=== PATIENT | male | born 1965 | race Caucasian/White ===

== ENCOUNTER 2017-05-27 12:30 | Inpatient (IN) | payer MEDICARE ==
[2017-05-27] MEDS ORDERED: ENOXAPARIN SODIUM INJ 40 MG/0.4 ML DISP.SYRIN SUBCUT ONE ×2 (14:00→16:30)
[2017-05-27 14:02] LABS: HEMATOCRIT 49.9 % (37.9-51.0); HEMOGLOBIN 16.7 g/dL (13.5-17.0); HGB HCT DIFFERENCE 0.2; MEAN CORPUSCULAR HEMOGLOBIN 32.8 pg (27.0-33.4); MEAN CORPUSCULAR HGB CONC 33.5 g/dL (32.0-36.0); MEAN CORPUSCULAR VOLUME 98 fl (80-97); RED CELL DISTRIBUTION WIDTH 13.9 % (11.5-14.0); WHITE BLOOD COUNT 25.8 10^3/uL (4.0-10.5)
[2017-05-27 14:05] LABS: PARTIAL THROMBOPLASTIN TIME 29.4 SEC (23.5-35.8); PROTHROMBIN TIME 12.5 SEC (11.4-15.4)
[2017-05-27 14:10] LABS: ALANINE AMINOTRANSFERASE 55 U/L (21-72); ALKALINE PHOSPHATASE 109 U/L (38-126); ANION GAP 15 (5-19); ASPARTATE AMINO TRANSFERASE 39 U/L (17-59); BILIRUBIN,DIRECT 0.5 mg/dL (0.0-0.4); BILIRUBIN,TOTAL 1.9 mg/dL (0.2-1.3); BLOOD UREA NITROGEN 24 mg/dL (7-20); CALCIUM 8.8 mg/dL (8.4-10.2); CARBON DIOXIDE 21 mmol/L (22-30); CHLORIDE 102 mmol/L (98-107); GLUCOSE 142 mg/dL (75-110); POTASSIUM 3.6 mmol/L (3.6-5.0); SODIUM 138.3 mmol/L (137-145); TOTAL PROTEIN 7.1 g/dL (6.3-8.2)
[2017-05-27] MEDS: METRONIDAZOLE 500 MG/NS RTU 100 ML IV SCH ×2 (14:33→21:39)
--- NOTE | 2017-05-27 17:12 | RADIOLOGY REPORT (SQ) ---
EXAM DESCRIPTION: CT ABD/PELVIS WITH IV ORAL COMPLETED DATE/TIME: 05/27/2017 4:56 pm REASON FOR STUDY: ABD PAIN R/O DIVERTICULITIS COMPARISON: 10/26/2014. TECHNIQUE: CT scan of the abdomen and pelvis performed using helical scanning technique with dynamic intravenous contrast injection. No oral contrast. Images reviewed with lung, soft tissue, and bone windows. Reconstructed coronal and sagittal MPR images reviewed. Delayed images for evaluation of the urinary system also acquired. All images stored on PACS. All CT scanners at this facility use dose modulation, iterative reconstruction, and/or weight based d osing when appropriate to reduce radiation dose to as low as reasonably achievable (ALARA). [facility]: Dose Right [facility]: CareDose [facility]: Dose Right [facility]: Teradose 4D [facility]: Home Dialysis Plus CONTRAST TYPE AND DOSE: contrast/concentration: Isovue 300.00 mg/ml; Total Contrast Delivered: 84.0 ml; Total Saline Delivered: 70.0 ml RENAL FUNCTION: BUN 24 creatinine 1.7. RADIATION DOSE: Up-to-date CT equipment and radiation dose reduction techniques were employed. CTDIv ol: 16.3 - 18.6 mGy. DLP: 2014 mGy-cm.. LIMITATIONS: None. FINDINGS: LOWER CHEST: No significant findings. No nodules or infiltrates. LIVER: Normal size. Diffuse fatty infiltration. No masses. No dilated ducts. SPLEEN: Normal size. No focal lesions. PANCREAS: No masses. No significant calcifications. Inflammatory changes involving the pancreas and peripancreatic tissues. No abnormal fluid collections. Pancreatic duct not dilated. GALLBLADDER: No identified stones by CT criteria. No inflammatory changes to suggest cholecystitis. ADRENAL GLANDS: No significant masses or asymmetry. RIGHT KIDNEY AND URETER: No solid masses. No significant calcifications. No hydronephrosis or hyd roureter. LEFT KIDNEY AND URETER: No solid masses. No significant calcifications. No hydronephrosis or hydr oureter. AORTA AND VESSELS: No aneurysm. No dissection. Renal arteries, SMA, celiac without stenosis. RETROPERITONEUM: No retroperitoneal adenopathy, hemorrhage or masses. BOWEL AND PERITONEAL CAVITY: No masses or inflammatory changes. No free fluid or peritoneal masses. APPENDIX: Surgically absent. PELVIS: No mass. No free fluid. Normal bladder. ABDOMINAL WALL: No masses. No hernias. BONES: No significant or acute findings. OTHER: No other significant finding. IMPRESSION: 1. ACUTE PANCREATITIS. NO ABNORMAL FLUID COLLECTIONS. 2. DIFFUSE FATTY INFILTRATION OF THE LIVER. 3. NO OTHER SIGNIFICANT OR ACUTE FINDING IN THE ABDOMEN OR PELVIS ON CT SCAN WITH IV CONTRAST. TECHNICAL DOCUMENTATION: JOB ID: [id number] Quality ID # [id number]: Final reports with documentation of one or more dose reduction techniques (e.g., Au tomated exposure control, adjustment of the mA and/or kV according to patient size, use of iterative reconstruction technique) 2010 [employer]- All Rights Reserved
[2017-05-27] MEDS ORDERED: CIPROFLOXACIN 400 MG/D5W RTU 400 MG/200 ML RTUPB IV SCH (18:00)
[2017-05-27] MEDS ORDERED: DEXTROSE 40% GEL 15 GM TUBE PO PRN ×2 (19:04)
[2017-05-27] MEDS ORDERED: (PENDING PHARMACY ID) (Albuterol Sulfate [Proair Respiclick] 2 PUFF) IH PRN (19:04)
[2017-05-27] MEDS ORDERED: DEXTROSE 50%-WATER 25 GM/50 ML DISP.SYRIN IV PRN ×2 (19:04)
[2017-05-27] MEDS ORDERED: GLUCAGON,HUMAN RECOMB 1 MG INJ SUBCUT PRN (19:04)
[2017-05-27] MEDS ORDERED: HYDRALAZINE HCL INJ/PF 20 MG/1 ML SDV IV PRN (19:14)
[2017-05-27] MEDS ORDERED: CEFEPIME 1 GM/D5W RTU 50 ML IV SCH (19:15)
[2017-05-27 19:30] LABS: AMYLASE 921 U/L (30-110)
[2017-05-27 19:38] LABS: ALCOHOL < 10 mg/dL (NONE DETECTED); LIPASE 3878.4 U/L (23-300)
--- NOTE | 2017-05-27 19:43 | PDOC H&P ---
History of Present Illness Admission Date/PCP: 05/27/17 12:30 ROXIEZHOU BUSTAMANTECrystal Patient complains of: Worsening abdominal pain History of Present Illness: ESTRELLA GAONA is a 52 year old male who presented to the office earlier today with worsening abdominal pain. There is associated nausea and vomiting. Patient reported chills and possible fever. Patient reported associate decrease appetite and p.o intake. He described abdominal pain as dull and crampy in character. His laboratory evaluation revealed significant leukocytosis with total WBC of 24,000. tachycardia and lower than usual blood pressure in the office. In view of these findings he was advised hospitalization for further evaluation and management. Past Medical History Cardiac Medical History: Reports: Hypertension Pulmonary Medical History: Reports: Chronic Obstructive Pulmonary Disease (COPD) Psychiatric Medical History: Reports: Depression Past Surgical History Past Surgical History: Reports: Appendectomy, Tonsillectomy Social History Smoking Status: Current Every Day Smoker Cigarettes Packs Per Day: 1 Last Time Smoked: [id number] Frequency of Alcohol Use: None Hx Recreational Drug Use: No Drugs: None Hx Prescription Drug Abuse: No Family History Family History: Reviewed & Not Pertinent Parental Family History Reviewed: Yes Children Family History Reviewed: Yes Sibling(s) Family History Reviewed.: Yes Medication/Allergy Home Medications: Albuterol Sulfate [Proair Respiclick] 2 puff IH Q6HP PRN 05/27/17 Fluticasone Propionate [Flonase Nasal [place] 50 Mcg/[place] 16 gm] 1 spray NAREB DAILY 05/27/17 Ipratropium/Albuterol Sulfate [Duoneb 3 ml Ampul] 3 ml NEB RTQ6HP PRN 05/27/17 Losartan Potassium [Cozaar 100 mg Tablet] 100 mg PO DAILY 05/27/17 Multivit-Min/FA/Lycopen/Lutein [Centrum Silver Men Tablet] 1 tab PO DAILY Sertraline HCl [Zoloft] 100 mg PO DAILY 05/27/17 Trazodone HCl [Desyrel] 300 mg PO QHS 05/27/17 Allergies/Adverse Reactions: No Known Allergies Allergy (Unverified 10/15/11 06:29) Review of Systems Constitutional: PRESENT: anorexia, chills, fever(s). ABSENT: as per HPI, fatigue, headache(s), night sweats, weakness, weight gain, weight loss, other Eyes: ABSENT: visual disturbances Ears: ABSENT: hearing changes Nose, Mouth, and Throat: ABSENT: as per HPI, headache(s), mouth pain, sore throat, vertigo, other Cardiovascular: ABSENT: chest pain, dyspnea on exertion, edema, orthropnea, palpitations Respiratory: ABSENT: cough, hemoptysis Gastrointestinal: PRESENT: abdominal pain, nausea, vomiting. ABSENT: as per HPI , bloating, coffee ground emesis, constipation, diarrhea, dysphagia, heartburn, hematemesis, hematochezia, melena, other Genitourinary: ABSENT: dysuria, hematuria Musculoskeletal: ABSENT: joint swelling Integumentary: ABSENT: rash, wounds Neurological: ABSENT: abnormal gait, abnormal speech, confusion, dizziness, focal weakness, syncope Psychiatric: ABSENT: anxiety, depression, homidical ideation, suicidal ideation Endocrine: ABSENT: cold intolerance, heat intolerance, menstrual abnormalities, polydipsia, polyuria Hematologic/Lymphatic: ABSENT: easy bleeding, easy bruising, lymphadenopathy Allergic/Immunologic: ABSENT: as per HPI, seasonal rhinorrhea, other Physical Exam Vital Signs: Temp Pulse Resp BP Pulse Ox 99.8 F 116 H 18 116/85 97 05/27/17 16:30 05/27/17 16:30 05/27/17 16:30 05/27/17 16:30 05/27/17 16:30 Intake & Output 05/26/17 05/27/17 05/28/17 06:59 06:59 06:59 Intake Total 776 Output Total 0 Balance 776 Weight 109.09 kg General appearance: PRESENT: cooperative, mild distress, obese Head exam: PRESENT: atraumatic, normocephalic Eye exam: PRESENT: conjunctiva pink, EOMI, PERRLA. ABSENT: scleral icterus Ear exam: PRESENT: normal external ear exam Mouth exam: PRESENT: moist, tongue midline Teeth exam: ABSENT: dental caries, dental tenderness, edentulous, poor dentation , other Throat exam: ABSENT: post pharyngeal erythema, tonsillar erythema, tonsillar exudate, tonsillogmegaly, other Neck exam: PRESENT: full ROM. ABSENT: carotid bruit, JVD, lymphadenopathy, thyromegaly Respiratory exam: PRESENT: clear to auscultation carroll Cardiovascular exam: PRESENT: tachycardia Pulses: PRESENT: normal dorsalis pedis pul, +2 pedal pulses bilateral Vascular exam: PRESENT: normal capillary refill GI/Abdominal exam: PRESENT: distended, rebound, tenderness - diffusely but some increase intensiuty in RLQ and LLQ regions. ABSENT: ascites, guarding, mass, Gusman's sign, organolmegaly Rectal exam: PRESENT: deferred Extremities exam: ABSENT: pedal edema Musculoskeletal exam: PRESENT: ambulatory, deformity - related to multiple joints invoilvement with arthritis Neurological exam: PRESENT: alert, awake, oriented to person, oriented to place , oriented to time, oriented to situation, CN II-XII grossly intact. ABSENT: motor sensory deficit Psychiatric exam: PRESENT: appropriate affect, normal mood. ABSENT: homicidal ideation, suicidal ideation Skin exam: PRESENT: dry, intact, warm. ABSENT: cyanosis, rash Results Laboratory Results: 05/27/17 13:38 05/27/17 13:38 05/27/17 05/27/17 05/27/17 13:38 13:38 13:38 WBC 25.8 H RBC 5.10 Hgb 16.7 Hct 49.9 MCV 98 H MCH 32.8 MCHC 33.5 RDW 13.9 Plt Count 223 Sodium 138.3 Potassium 3.6 Chloride 102 Carbon Dioxide 21 L Anion Gap 15 BUN 24 H Creatinine Cancelled 1.70 H Est GFR ( Amer) Cancelled 51 L Est GFR (Non-Af Amer) Cancelled 42 L Glucose 142 H Calcium 8.8 Total Bilirubin 1.9 H AST 39 ALT 55 Alkaline Phosphatase 109 Total Protein 7.1 Albumin 4.0 Impressions: Abdomen/Pelvis CT 05/27/17 00:00 IMPRESSION: 1. ACUTE PANCREATITIS. NO ABNORMAL FLUID COLLECTIONS. 2. DIFFUSE FATTY INFILTRATION OF THE LIVER. 3. NO OTHER SIGNIFICANT OR ACUTE FINDING IN THE ABDOMEN OR PELVIS ON CT SCAN WITH IV CONTRAST. Assessment & Plan - Diagnosis (1) Acute pancreatitis Qualifiers: Pancreatitis type: unspecified pancreatitis type Acute pancreatitis complication: unspecified Qualified Code(s): K85.90 - Acute pancreatitis without necrosis or infection, unspecified Is this a current diagnosis for this admission?: YesPlan: See admitting attending physician orders. (2) Probable sepsis Is this a current diagnosis for this admission?: YesPlan: See admitting attending physician orders (3) HTN (hypertension) Qualifiers: Hypertension type: essential hypertension Qualified Code(s): I10 - Essential (primary) hypertension Is this a current diagnosis for this admission?: YesPlan: See admitting attending physician orders (4) COPD (chronic obstructive pulmonary disease) Qualifiers: COPD type: unspecified COPD Qualified Code(s): J44.9 - Chronic obstructive pulmonary disease, unspecified Is this a current diagnosis for this admission?: YesPlan: See admitting attending physician orders (5) Tobacco dependence Is this a current diagnosis for this admission?: YesPlan: See admitting attending physician orders (6) Mixed anxiety and depressive disorder Is this a current diagnosis for this admission?: Yes (7) Persistent insomnia Plan: See admitting attending physician orders - Time Time Spent: Greater than 70 Minutes Medications reviewed and adjusted accordingly: Yes Anticipated discharge: Home Within: Other - Inpatient Certification Based on my medical assessment, after consideration of the patient's comorbidities, presenting symptoms, or acuity I expect that the services needed warrant INPATIENT care.: Yes I certify that my determination is in accordance with my understanding of Medicare's requirements for reasonable and necessary INPATIENT services [42 CFR 412.3e].: Yes Medical Necessity: Need Close Monitoring Due to Risk of Patient Decompensation, Need For IV Fluids, Need For Continuous Telemetry Monitoring, Need for Nebulizer Therapy and Monitoring of Response, Need for IV Antibiotics, Risk of Complication if Not Cared For in Hospital Post Hospital Care: D/C Claims Vice President Documentation - Plan Summary Plan Summary: See admitting attending physician orders
[2017-05-27] MEDS ORDERED: NICOTINE 21 MG/24 HR PATCH.TD24 TD ONE (20:00)
[2017-05-27] MEDS ORDERED: CEFEPIME HCL 1 GM in DEXTROSE 5%-WATER 50 ML IV ONE (20:00)
[2017-05-27 21:59] LABS: APPEARANCE,URINE CLEAR; BILIRUBIN,URINE NEGATIVE (NEGATIVE); GLUCOSE, URINE NEGATIVE (NEGATIVE); KETONES,URINE NEGATIVE (NEGATIVE); LEUKOCYTE ESTERASE,URINE NEGATIVE (NEGATIVE); NITRITE,URINE NEGATIVE (NEGATIVE); PROTEIN,URINE 30 mg/dL (NEGATIVE); UROBILINOGEN,URINE NEGATIVE mg/dL (<2.0)
[2017-05-27 22:06] LABS: URINE SPECIFIC GRAVITY > 1.060
[2017-05-28] MEDS: IPRATROPIUM/ALBUTEROL 0.5-2.5 MG/3 ML AMPUL NEB PRN ×3 (02:29→19:54)
[2017-05-28] MEDS: CEFEPIME HCL 1 GM in DEXTROSE 5%-WATER 50 ML IV SCH ×2 (05:18→17:21)
[2017-05-28] MEDS: METRONIDAZOLE 500 MG/NS RTU 100 ML IV SCH ×3 (05:18→22:24)
[2017-05-28 05:45] LABS: HGB HCT DIFFERENCE 0.5; MEAN CORPUSCULAR HEMOGLOBIN 32.6 pg (27.0-33.4); MEAN CORPUSCULAR HGB CONC 33.6 g/dL (32.0-36.0); MEAN CORPUSCULAR VOLUME 97 fl (80-97); RED BLOOD COUNT 4.43 10^6/uL (4.35-5.55); RED CELL DISTRIBUTION WIDTH 13.3 % (11.5-14.0); WHITE BLOOD COUNT 18.6 10^3/uL (4.0-10.5)
[2017-05-28 05:46] LABS: HEMOGLOBIN 14.5 g/dL (13.5-17.0)
[2017-05-28 06:00] LABS: ALANINE AMINOTRANSFERASE 48 U/L (21-72); ALKALINE PHOSPHATASE 75 U/L (38-126); AMYLASE 446 U/L (30-110); ANION GAP 10 (5-19); ASPARTATE AMINO TRANSFERASE 37 U/L (17-59); BILIRUBIN,DIRECT 0.6 mg/dL (0.0-0.4); BILIRUBIN,TOTAL 1.3 mg/dL (0.2-1.3); BLOOD UREA NITROGEN 19 mg/dL (7-20); CALCIUM 7.7 mg/dL (8.4-10.2); CARBON DIOXIDE 25 mmol/L (22-30); CHLORIDE 103 mmol/L (98-107); CHOLESTEROL 110.75 mg/dL (0-200); CREATININE RESULT 1.05 mg/dL (0.52-1.25); Direct HDL 27 mg/dL (>40); GLUCOSE 99 mg/dL (75-110); LIPASE 1428.1 U/L (23-300); SODIUM 138.2 mmol/L (137-145); TOTAL PROTEIN 5.7 g/dL (6.3-8.2); TRIGLYCERIDES 412 mg/dL (<150)
[2017-05-28 06:08] LABS: POTASSIUM 3.5 mmol/L (3.6-5.0)
[2017-05-28 06:45] LABS: DIRECT LDL < 30 mg/dL (<100)
[2017-05-28] MEDS: LANSOPRAZOLE 30 MG TAB.RAP.DR PO SCH (08:52)
[2017-05-28] MEDS: NICOTINE 21 MG/24 HR PATCH.TD24 TD SCH (08:53)
[2017-05-28] MEDS: ENOXAPARIN SODIUM INJ 40 MG/0.4 ML DISP.SYRIN SUBCUT SCH (08:53)
[2017-05-28] MEDS: FLUTICASONE NASAL SPRAY 50 MCG/SPRY 120 SPRAY/16 GM NAREB SCH (08:55)
[2017-05-28] MEDS: NORMAL SALINE 1000 ML 1,000 ML IV PRN (08:56)
--- NOTE | 2017-05-28 19:49 | PDOC PROGRESS REPORT ---
Subjective Progress Note for:: 05/28/17 Subjective:: Patient reported some improvement in his abdominal pain. No nausea or vomiting. Some amount of diarrhea. No fever or chills. No chest pain or difficulty with breathing. Physical Exam Vital Signs: Temp Pulse Resp BP Pulse Ox 98.8 F 109 H 19 140/92 H 98 05/28/17 15:24 05/28/17 15:24 05/28/17 15:24 05/28/17 15:24 05/28/17 15:24 Intake & Output 05/27/17 05/28/17 05/29/17 06:59 06:59 06:59 Intake Total 2576 0 Output Total 0 Balance 2576 0 Weight 109.09 kg General appearance: PRESENT: no acute distress, cooperative, obese Head exam: PRESENT: atraumatic, normocephalic Eye exam: PRESENT: conjunctiva pink, EOMI, PERRLA. ABSENT: scleral icterus Respiratory exam: PRESENT: clear to auscultation carroll Cardiovascular exam: PRESENT: RRR. ABSENT: diastolic murmur, rubs, systolic murmur GI/Abdominal exam: PRESENT: normal bowel sounds, tenderness - comparative improved over lower quadrants.. ABSENT: ascites, guarding, rebound Extremities exam: ABSENT: pedal edema Musculoskeletal exam: PRESENT: normal inspection Neurological exam: PRESENT: alert, awake, oriented to person, oriented to place , oriented to time, oriented to situation, CN II-XII grossly intact. ABSENT: motor sensory deficit Psychiatric exam: PRESENT: appropriate affect, normal mood. ABSENT: homicidal ideation, suicidal ideation Skin exam: PRESENT: dry, intact, warm. ABSENT: cyanosis, rash Results Laboratory Results: 05/28/17 04:43 05/28/17 04:43 05/27/17 05/28/17 05/28/17 19:30 04:43 04:43 WBC 18.6 H RBC 4.43 Hgb 14.5 D Hct 43.0 MCV 97 MCH 32.6 MCHC 33.6 RDW 13.3 Plt Count 146 L Sodium 138.2 Potassium 3.5 L Chloride 103 Carbon Dioxide 25 Anion Gap 10 BUN 19 Creatinine 1.05 Est GFR ( Amer) > 60 Est GFR (Non-Af Amer) > 60 Glucose 99 Calcium 7.7 L Total Bilirubin 1.3 AST 37 ALT 48 Alkaline Phosphatase 75 Total Protein 5.7 L Albumin 3.0 L Triglycerides 412 H Cholesterol 110.75 LDL Cholesterol Direct < 30 VLDL Cholesterol UNABLE TO CALCULATE HDL Cholesterol 27 L Amylase 446 H Lipase 1428.1 H Urine Color YELLOW Urine Appearance CLEAR Urine pH 6.0 Ur Specific [place] > 1.060 Urine Protein 30 H Urine Glucose (UA) NEGATIVE Urine Ketones NEGATIVE Urine Blood SMALL H Urine Nitrite NEGATIVE Ur Leukocyte Esterase NEGATIVE Urine WBC (Auto) 3 Urine RBC (Auto) 1 Impressions: Abdomen/Pelvis CT 05/27/17 00:00 IMPRESSION: 1. ACUTE PANCREATITIS. NO ABNORMAL FLUID COLLECTIONS. 2. DIFFUSE FATTY INFILTRATION OF THE LIVER. 3. NO OTHER SIGNIFICANT OR ACUTE FINDING IN THE ABDOMEN OR PELVIS ON CT SCAN WITH IV CONTRAST. Assessment & Plan - Diagnosis (1) Acute pancreatitis Qualifiers: Pancreatitis type: unspecified pancreatitis type Acute pancreatitis complication: unspecified Qualified Code(s): K85.90 - Acute pancreatitis without necrosis or infection, unspecified Is this a current diagnosis for this admission?: YesPlan: There is down hollins trend of his serum Lipase and Amylase levels. (2) Probable sepsis Is this a current diagnosis for this admission?: YesPlan: See attending physician orders. He will continue on IV Cefepime and Metronidazole coverage. There is downward trend in his leukocytosis (3) HTN (hypertension) Qualifiers: Hypertension type: essential hypertension Qualified Code(s): I10 - Essential (primary) hypertension Is this a current diagnosis for this admission?: YesPlan: See attending physician orders. (4) COPD (chronic obstructive pulmonary disease) Qualifiers: COPD type: unspecified COPD Qualified Code(s): J44.9 - Chronic obstructive pulmonary disease, unspecified Is this a current diagnosis for this admission?: YesPlan: See attending physician orders. (5) Tobacco dependence Is this a current diagnosis for this admission?: YesPlan: See attending physician orders. (6) Mixed anxiety and depressive disorder Is this a current diagnosis for this admission?: YesPlan: See attending physician orders. (7) Persistent insomnia Is this a current diagnosis for this admission?: YesPlan: See attending physician orders. - Time Time Spent with patient: 25-34 minutes Medications reviewed and adjusted accordingly: Yes Anticipated discharge: Home Within: Other - Inpatient Certification Based on my medical assessment, after consideration of the patient's comorbidities, presenting symptoms, or acuity I expect that the services needed warrant INPATIENT care.: Yes I certify that my determination is in accordance with my understanding of Medicare's requirements for reasonable and necessary INPATIENT services [42 CFR 412.3e].: Yes Medical Necessity: Need Close Monitoring Due to Risk of Patient Decompensation, Need For IV Fluids, Need For Continuous Telemetry Monitoring, Need for IV Antibiotics, Risk of Complication if Not Cared For in Hospital Post Hospital Care: D/C Retail Business Analyst Documentation - Plan 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
[2017-05-28 20:33] LABS: APPEARANCE,URINE SLIGHTLY-CLOUDY; BILIRUBIN,URINE NEGATIVE (NEGATIVE); GLUCOSE, URINE NEGATIVE (NEGATIVE); KETONES,URINE 80 mg/dL (NEGATIVE); LEUKOCYTE ESTERASE,URINE TRACE (NEGATIVE); NITRITE,URINE NEGATIVE (NEGATIVE); PROTEIN,URINE 100 mg/dL (NEGATIVE); URINE SPECIFIC GRAVITY 1.031
[2017-05-29] MEDS: METRONIDAZOLE 500 MG/NS RTU 100 ML IV SCH ×3 (05:10→21:23)
[2017-05-29] MEDS: CEFEPIME HCL 1 GM in DEXTROSE 5%-WATER 50 ML IV SCH ×2 (06:12→17:52)
[2017-05-29 07:06] LABS: LIPASE 346.9 U/L (23-300)
[2017-05-29] MEDS: LANSOPRAZOLE 30 MG TAB.RAP.DR PO SCH (07:43)
[2017-05-29] MEDS: ENOXAPARIN SODIUM INJ 40 MG/0.4 ML DISP.SYRIN SUBCUT SCH (07:43)
[2017-05-29] MEDS: NICOTINE 21 MG/24 HR PATCH.TD24 TD SCH (10:03)
[2017-05-29] MEDS: FLUTICASONE NASAL SPRAY 50 MCG/SPRY 120 SPRAY/16 GM NAREB SCH (10:04)
[2017-05-29] MEDS: IPRATROPIUM/ALBUTEROL 0.5-2.5 MG/3 ML AMPUL NEB PRN ×2 (10:49→21:34)
--- NOTE | 2017-05-29 18:53 | PDOC PROGRESS REPORT ---
Subjective Progress Note for:: 05/29/17 Subjective:: Patient reported continue improvement in abdominal pain. No nausea or vomiting. Persistent issue with diarrhea. No fever or chills. No chest pain or difficulty with breathing. Physical Exam Vital Signs: Temp Pulse Resp BP Pulse Ox 98.6 F 92 19 152/86 H 100 05/29/17 15:28 05/29/17 15:28 05/29/17 15:28 05/29/17 15:28 05/29/17 15:28 Intake & Output 05/28/17 05/29/17 05/30/17 06:59 06:59 06:59 Intake Total 2576 2073 0 Output Total 0 Balance 2576 2073 0 Weight 109.09 kg 108.465 kg Physical Exam: General appearance: PRESENT: no acute distress, cooperative, obese Head exam: PRESENT: atraumatic, normocephalic Eye exam: PRESENT: conjunctiva pink, EOMI, PERRLA. ABSENT: scleral icterus Respiratory exam: PRESENT: clear to auscultation carroll Cardiovascular exam: PRESENT: RRR. ABSENT: diastolic murmur, rubs, systolic murmur GI/Abdominal exam: PRESENT: normal bowel sounds, tenderness - comparative improved over lower quadrants.. ABSENT: ascites, guarding, rebound Extremities exam: ABSENT: pedal edema Musculoskeletal exam: PRESENT: normal inspection Neurological exam: PRESENT: alert, awake, oriented to person, oriented to place , oriented to time, oriented to situation, CN II-XII grossly intact. ABSENT: motor sensory deficit Psychiatric exam: PRESENT: appropriate affect, normal mood. ABSENT: homicidal ideation, suicidal ideation Skin exam: PRESENT: dry, intact, warm. ABSENT: cyanosis, rash Results Laboratory Results: 05/28/17 04:43 05/28/17 04:43 05/28/17 05/29/17 20:15 06:33 Amylase 82 Lipase 346.9 H Urine Color PRINCE Urine Appearance SLIGHTLY-CLOUDY Urine pH 6.0 Ur Specific [place] 1.031 Urine Protein 100 H Urine Glucose (UA) NEGATIVE Urine Ketones 80 H Urine Blood NEGATIVE Urine Nitrite NEGATIVE Ur Leukocyte Esterase TRACE H Urine WBC (Auto) 1 Urine RBC (Auto) 1 Impressions: Abdomen/Pelvis CT 05/27/17 00:00 IMPRESSION: 1. ACUTE PANCREATITIS. NO ABNORMAL FLUID COLLECTIONS. 2. DIFFUSE FATTY INFILTRATION OF THE LIVER. 3. NO OTHER SIGNIFICANT OR ACUTE FINDING IN THE ABDOMEN OR PELVIS ON CT SCAN WITH IV CONTRAST. Assessment & Plan - Diagnosis (1) Acute pancreatitis Qualifiers: Pancreatitis type: unspecified pancreatitis type Acute pancreatitis complication: unspecified Qualified Code(s): K85.90 - Acute pancreatitis without necrosis or infection, unspecified Is this a current diagnosis for this admission?: YesPlan: There is down hollins trend of his serum Lipase level and normal Amylase level. (2) Probable sepsis Is this a current diagnosis for this admission?: YesPlan: See attending physician orders. Continue on IV Cefepime and Metronidazole coverage. (3) HTN (hypertension) Qualifiers: Hypertension type: essential hypertension Qualified Code(s): I10 - Essential (primary) hypertension Is this a current diagnosis for this admission?: YesPlan: See attending physician orders. (4) COPD (chronic obstructive pulmonary disease) Qualifiers: COPD type: unspecified COPD Qualified Code(s): J44.9 - Chronic obstructive pulmonary disease, unspecified Is this a current diagnosis for this admission?: YesPlan: See attending physician orders. (5) Tobacco dependence Is this a current diagnosis for this admission?: YesPlan: See attending physician orders. (6) Mixed anxiety and depressive disorder Is this a current diagnosis for this admission?: YesPlan: See attending physician orders. (7) Persistent insomnia Is this a current diagnosis for this admission?: YesPlan: See attending physician orders. - Time Time Spent with patient: 25-34 minutes Medications reviewed and adjusted accordingly: Yes Anticipated discharge: Home Within: Other - Inpatient Certification Medical Necessity: Need Close Monitoring Due to Risk of Patient Decompensation, Need For IV Fluids, Need For Continuous Telemetry Monitoring, Need for IV Antibiotics, Risk of Complication if Not Cared For in Hospital Post Hospital Care: D/C Clinical Statistical Programmer Documentation - Plan Summary Plan Summary: Continue current management. If Lipase level is within normal range tomorrow, consider starting on clear liquid diet. Continue IV Cefepime and Metronidazole coverage.
[2017-05-29] MEDS: NORMAL SALINE 1000 ML 1,000 ML IV PRN (19:25)
[2017-05-30] MEDS: METRONIDAZOLE 500 MG/NS RTU 100 ML IV SCH ×3 (05:04→22:26)
[2017-05-30 05:42] LABS: ABSOLUTE EOSINOPHILS # (AUTO) 0.3 10^3/uL (0.0-0.6); ABSOLUTE LYMPHOCYTES (AUTO) 0.8 10^3/uL (0.5-4.7); BASOPHILS % (AUTO) 0.1 % (0-2); EOSINOPHILS % (AUTO) 2.4 % (0-6); HEMATOCRIT 36.3 % (37.9-51.0); LYMPHOCYTES % (AUTO) 5.8 % (13-45); MEAN CORPUSCULAR HEMOGLOBIN 32.9 pg (27.0-33.4); MEAN CORPUSCULAR HGB CONC 33.4 g/dL (32.0-36.0); MEAN CORPUSCULAR VOLUME 98 fl (80-97); MONOCYTES % (AUTO) 7.7 % (3-13); RED BLOOD COUNT 3.69 10^6/uL (4.35-5.55); RED CELL DISTRIBUTION WIDTH 13.6 % (11.5-14.0); WHITE BLOOD COUNT 13.2 10^3/uL (4.0-10.5)
[2017-05-30 05:51] LABS: HEMOGLOBIN 12.1 g/dL (13.5-17.0)
[2017-05-30 06:02] LABS: ALANINE AMINOTRANSFERASE 42 U/L (21-72); ALBUMIN 2.8 g/dL (3.5-5.0); ALKALINE PHOSPHATASE 78 U/L (38-126); AMYLASE 60 U/L (30-110); ANION GAP 9 (5-19); ASPARTATE AMINO TRANSFERASE 29 U/L (17-59); BILIRUBIN,DIRECT 0.4 mg/dL (0.0-0.4); BILIRUBIN,TOTAL 0.7 mg/dL (0.2-1.3); BLOOD UREA NITROGEN 14 mg/dL (7-20); CARBON DIOXIDE 25 mmol/L (22-30); CHLORIDE 104 mmol/L (98-107); CREATININE RESULT 0.72 mg/dL (0.52-1.25); GLUCOSE 89 mg/dL (75-110); LIPASE 309.3 U/L (23-300); POTASSIUM 3.8 mmol/L (3.6-5.0); SODIUM 138.2 mmol/L (137-145); TOTAL PROTEIN 5.4 g/dL (6.3-8.2)
[2017-05-30] MEDS: CEFEPIME HCL 1 GM in DEXTROSE 5%-WATER 50 ML IV SCH ×2 (06:16→17:08)
[2017-05-30] MEDS: LANSOPRAZOLE 30 MG TAB.RAP.DR PO SCH (07:37)
[2017-05-30] MEDS: ENOXAPARIN SODIUM INJ 40 MG/0.4 ML DISP.SYRIN SUBCUT SCH (07:38)
[2017-05-30] MEDS: NICOTINE 21 MG/24 HR PATCH.TD24 TD SCH (09:20)
[2017-05-30] MEDS: FLUTICASONE NASAL SPRAY 50 MCG/SPRY 120 SPRAY/16 GM NAREB SCH (09:20)
[2017-05-30] MEDS: NORMAL SALINE 1000 ML 1,000 ML IV PRN ×2 (10:13→17:10)
[2017-05-30] MEDS: IPRATROPIUM/ALBUTEROL 0.5-2.5 MG/3 ML AMPUL NEB PRN ×2 (10:36→18:59)
--- NOTE | 2017-05-30 16:00 | PDOC PROGRESS REPORT ---
Subjective Progress Note for:: 05/30/17 Subjective:: Patient's serum lipase significantly improved. Started on clear liquid diet earlier this morning. No nausea, vomiting or abdominal pain. Persistent issue with diarrhea. No fever or chills. No chest pain or difficulty with breathing. Physical Exam Vital Signs: Temp Pulse Resp BP Pulse Ox 98.2 F 74 18 140/82 H 99 05/30/17 11:52 05/30/17 14:00 05/30/17 11:52 05/30/17 11:52 05/30/17 11:52 Intake & Output 05/29/17 05/30/17 05/31/17 06:59 06:59 06:59 Intake Total 2072 2619 Balance 2072 2619 Weight 108.465 kg 109.429 kg Physical Exam: General appearance: PRESENT: no acute distress, cooperative, obese Head exam: PRESENT: atraumatic, normocephalic Eye exam: PRESENT: conjunctiva pink, EOMI, PERRLA. ABSENT: scleral icterus Respiratory exam: PRESENT: clear to auscultation carroll Cardiovascular exam: PRESENT: RRR. ABSENT: diastolic murmur, rubs, systolic murmur GI/Abdominal exam: PRESENT: normal bowel sounds, significant improvement in lower quadrant tenderness. ABSENT: ascites, guarding, rebound Extremities exam: ABSENT: pedal edema Musculoskeletal exam: PRESENT: normal inspection Neurological exam: PRESENT: alert, awake, oriented to person, oriented to place , oriented to time, oriented to situation, CN II-XII grossly intact. ABSENT: motor sensory deficit Psychiatric exam: PRESENT: appropriate affect, normal mood. ABSENT: homicidal ideation, suicidal ideation Skin exam: PRESENT: dry, intact, warm. ABSENT: cyanosis, rash Results Laboratory Results: 05/30/17 05:12 05/30/17 05:12 05/30/17 05/30/17 05:12 05:12 WBC 13.2 H RBC 3.69 L Hgb 12.1 L D Hct 36.3 L MCV 98 H MCH 32.9 MCHC 33.4 RDW 13.6 Plt Count 146 L Seg Neutrophils % 84.0 H Lymphocytes % 5.8 L Monocytes % 7.7 Eosinophils % 2.4 Basophils % 0.1 Absolute Neutrophils 11.0 H Absolute Lymphocytes 0.8 Absolute Monocytes 1.0 Absolute Eosinophils 0.3 Absolute Basophils 0.0 Sodium 138.2 Potassium 3.8 Chloride 104 Carbon Dioxide 25 Anion Gap 9 BUN 14 Creatinine 0.72 Est GFR ( Amer) > 60 Est GFR (Non-Af Amer) > 60 Glucose 89 Calcium 8.0 L Total Bilirubin 0.7 AST 29 ALT 42 Alkaline Phosphatase 78 Total Protein 5.4 L Albumin 2.8 L Amylase 60 Lipase 309.3 H Impressions: Abdomen/Pelvis CT 05/27/17 00:00 IMPRESSION: 1. ACUTE PANCREATITIS. NO ABNORMAL FLUID COLLECTIONS. 2. DIFFUSE FATTY INFILTRATION OF THE LIVER. 3. NO OTHER SIGNIFICANT OR ACUTE FINDING IN THE ABDOMEN OR PELVIS ON CT SCAN WITH IV CONTRAST. Assessment & Plan - Diagnosis (1) Acute pancreatitis Qualifiers: Pancreatitis type: unspecified pancreatitis type Acute pancreatitis complication: unspecified Qualified Code(s): K85.90 - Acute pancreatitis without necrosis or infection, unspecified Is this a current diagnosis for this admission?: Yes (2) Probable sepsis Is this a current diagnosis for this admission?: Yes (3) HTN (hypertension) Qualifiers: Hypertension type: essential hypertension Qualified Code(s): I10 - Essential (primary) hypertension Is this a current diagnosis for this admission?: Yes (4) COPD (chronic obstructive pulmonary disease) Qualifiers: COPD type: unspecified COPD Qualified Code(s): J44.9 - Chronic obstructive pulmonary disease, unspecified Is this a current diagnosis for this admission?: Yes (5) Tobacco dependence Is this a current diagnosis for this admission?: Yes (6) Mixed anxiety and depressive disorder Is this a current diagnosis for this admission?: Yes (7) Persistent insomnia Is this a current diagnosis for this admission?: Yes - Time Time Spent with patient: 25-34 minutes Medications reviewed and adjusted accordingly: Yes Anticipated discharge: Home Within: Other - Inpatient Certification Based on my medical assessment, after consideration of the patient's comorbidities, presenting symptoms, or acuity I expect that the services needed warrant INPATIENT care.: Yes I certify that my determination is in accordance with my understanding of Medicare's requirements for reasonable and necessary INPATIENT services [42 CFR 412.3e].: Yes Medical Necessity: Need Close Monitoring Due to Risk of Patient Decompensation, Need For IV Fluids, Need For Continuous Telemetry Monitoring, Need for IV Antibiotics, Risk of Complication if Not Cared For in Hospital Post Hospital Care: D/C [employer] Documentation - Plan Summary Plan Summary: Maintain on current medication management. Advance diet consistency if serum lipase continue to demonstrate downward trend.
[2017-05-31] MEDS: METRONIDAZOLE 500 MG/NS RTU 100 ML IV SCH ×3 (05:37→21:43)
[2017-05-31] MEDS: NORMAL SALINE 1000 ML 1,000 ML IV PRN (05:38)
[2017-05-31] MEDS ORDERED: CEFEPIME 1 GM/D5W RTU 1 GM/50 ML RTUPB IV ONE (06:13)
[2017-05-31] MEDS: CEFEPIME HCL 1 GM in DEXTROSE 5%-WATER 50 ML IV SCH ×2 (06:44→18:17)
[2017-05-31] MEDS: IPRATROPIUM/ALBUTEROL 0.5-2.5 MG/3 ML AMPUL NEB PRN ×2 (08:56→20:22)
[2017-05-31 09:56] LABS: ABSOLUTE EOSINOPHILS # (AUTO) 0.4 10^3/uL (0.0-0.6); ABSOLUTE LYMPHOCYTES (AUTO) 0.8 10^3/uL (0.5-4.7); ABSOLUTE NEUT (AUTO) 10.3 10^3/uL (1.7-8.2); BASOPHILS % (AUTO) 0.3 % (0-2); HEMATOCRIT 36.6 % (37.9-51.0); HEMOGLOBIN 12.4 g/dL (13.5-17.0); HGB HCT DIFFERENCE 0.6; LYMPHOCYTES % (AUTO) 6.4 % (13-45); MEAN CORPUSCULAR HEMOGLOBIN 32.7 pg (27.0-33.4); MEAN CORPUSCULAR HGB CONC 33.8 g/dL (32.0-36.0); MEAN CORPUSCULAR VOLUME 97 fl (80-97); MONOCYTES % (AUTO) 8.3 % (3-13); RED BLOOD COUNT 3.78 10^6/uL (4.35-5.55); RED CELL DISTRIBUTION WIDTH 13.2 % (11.5-14.0); WHITE BLOOD COUNT 12.5 10^3/uL (4.0-10.5)
[2017-05-31 10:21] LABS: ANION GAP 9 (5-19); BLOOD UREA NITROGEN 9 mg/dL (7-20); CARBON DIOXIDE 26 mmol/L (22-30); CHLORIDE 101 mmol/L (98-107); CREATININE RESULT 0.67 mg/dL (0.52-1.25); GLUCOSE 122 mg/dL (75-110); POTASSIUM 3.4 mmol/L (3.6-5.0); SODIUM 136.1 mmol/L (137-145)
[2017-05-31] MEDS: LANSOPRAZOLE 30 MG TAB.RAP.DR PO SCH (10:21)
[2017-05-31] MEDS: ENOXAPARIN SODIUM INJ 40 MG/0.4 ML DISP.SYRIN SUBCUT SCH (10:21)
[2017-05-31] MEDS: FLUTICASONE NASAL SPRAY 50 MCG/SPRY 120 SPRAY/16 GM NAREB SCH (10:22)
[2017-05-31] MEDS: NICOTINE 21 MG/24 HR PATCH.TD24 TD SCH (10:22)
--- NOTE | 2017-05-31 15:54 | PDOC PROGRESS REPORT ---
Subjective Progress Note for:: 05/31/17 Subjective:: Patient was admitted because of acute pancreatitis, he was seen by the bedside is alert is oriented is tolerating p.o. fluid is also on IV antibiotic. It is reasonable at this time to discontinue IV fluid therapy since he is able to eat by mouth Physical Exam Vital Signs: Temp Pulse Resp BP Pulse Ox 98.5 F 75 18 138/90 H 99 05/31/17 11:26 05/31/17 14:00 05/31/17 11:26 05/31/17 11:26 05/31/17 11:26 Intake & Output 05/30/17 05/31/17 06/01/17 06:59 06:59 06:59 Intake Total 2620 4068 Balance 2620 4068 Weight 109.429 kg 105.3 kg General appearance: PRESENT: no acute distress Eye exam: PRESENT: PERRLA Respiratory exam: PRESENT: clear to auscultation carroll Cardiovascular exam: PRESENT: +S1, +S2 GI/Abdominal exam: PRESENT: soft Neurological exam: PRESENT: alert, CN II-XII grossly intact Results Laboratory Results: 05/31/17 09:48 05/31/17 09:48 05/31/17 05/31/17 05/31/17 06:15 09:48 09:48 WBC 12.5 H RBC 3.78 L Hgb 12.4 L Hct 36.6 L MCV 97 MCH 32.7 MCHC 33.8 RDW 13.2 Plt Count 172 Seg Neutrophils % 82.0 H Lymphocytes % 6.4 L Monocytes % 8.3 Eosinophils % 3.0 Basophils % 0.3 Absolute Neutrophils 10.3 H Absolute Lymphocytes 0.8 Absolute Monocytes 1.0 Absolute Eosinophils 0.4 Absolute Basophils 0.0 Sodium 136.1 L Potassium 3.4 L Chloride 101 Carbon Dioxide 26 Anion Gap 9 BUN 9 Creatinine 0.67 Est GFR ( Amer) > 60 Est GFR (Non-Af Amer) > 60 Glucose 122 H Calcium 8.0 L Lipase 273.1 Impressions: Abdomen/Pelvis CT 05/27/17 00:00 IMPRESSION: 1. ACUTE PANCREATITIS. NO ABNORMAL FLUID COLLECTIONS. 2. DIFFUSE FATTY INFILTRATION OF THE LIVER. 3. NO OTHER SIGNIFICANT OR ACUTE FINDING IN THE ABDOMEN OR PELVIS ON CT SCAN WITH IV CONTRAST. Assessment & Plan - Diagnosis (1) Acute pancreatitis Qualifiers: Pancreatitis type: unspecified pancreatitis type Acute pancreatitis complication: unspecified Qualified Code(s): K85.90 - Acute pancreatitis without necrosis or infection, unspecified Is this a current diagnosis for this admission?: Yes (2) COPD (chronic obstructive pulmonary disease) Qualifiers: COPD type: unspecified COPD Qualified Code(s): J44.9 - Chronic obstructive pulmonary disease, unspecified Is this a current diagnosis for this admission?: Yes (3) Mixed anxiety and depressive disorder Is this a current diagnosis for this admission?: Yes (4) Persistent insomnia Is this a current diagnosis for this admission?: Yes (5) Probable sepsis Is this a current diagnosis for this admission?: Yes (6) Tobacco dependence Is this a current diagnosis for this admission?: Yes (8) Alcoholic pancreatitis Qualifiers: Chronicity: acute Acute pancreatitis complication: unspecified Qualified Code(s): K85.20 - Alcohol induced acute pancreatitis without necrosis or infection Is this a current diagnosis for this admission?: Yes - Plan Summary Plan Summary: He will continue IV antibiotic, the IV fluid to be discontinued
[2017-06-01] MEDS: METRONIDAZOLE 500 MG/NS RTU 100 ML IV SCH ×3 (05:05→21:18)
[2017-06-01] MEDS: CEFEPIME HCL 1 GM in DEXTROSE 5%-WATER 50 ML IV SCH ×2 (06:17→18:13)
[2017-06-01] MEDS: IPRATROPIUM/ALBUTEROL 0.5-2.5 MG/3 ML AMPUL NEB PRN ×2 (09:43→20:49)
[2017-06-01] MEDS: LANSOPRAZOLE 30 MG TAB.RAP.DR PO SCH (09:48)
[2017-06-01] MEDS: NICOTINE 21 MG/24 HR PATCH.TD24 TD SCH (09:48)
[2017-06-01] MEDS: ENOXAPARIN SODIUM INJ 40 MG/0.4 ML DISP.SYRIN SUBCUT SCH (09:49)
[2017-06-01] MEDS: FLUTICASONE NASAL SPRAY 50 MCG/SPRY 120 SPRAY/16 GM NAREB SCH (09:49)
[2017-06-01 09:52] LABS: ABSOLUTE EOSINOPHILS # (AUTO) 0.4 10^3/uL (0.0-0.6); ABSOLUTE LYMPHOCYTES (AUTO) 0.8 10^3/uL (0.5-4.7); ABSOLUTE MONOCYTES (AUTO) 1.2 10^3/uL (0.1-1.4); ABSOLUTE NEUT (AUTO) 10.9 10^3/uL (1.7-8.2); BASOPHILS % (AUTO) 0.3 % (0-2); EOSINOPHILS % (AUTO) 3.2 % (0-6); HEMATOCRIT 37.1 % (37.9-51.0); HEMOGLOBIN 12.4 g/dL (13.5-17.0); HGB HCT DIFFERENCE 0.1; LYMPHOCYTES % (AUTO) 5.8 % (13-45); MEAN CORPUSCULAR HEMOGLOBIN 32.8 pg (27.0-33.4); MEAN CORPUSCULAR HGB CONC 33.3 g/dL (32.0-36.0); MEAN CORPUSCULAR VOLUME 99 fl (80-97); MONOCYTES % (AUTO) 9.1 % (3-13); RED BLOOD COUNT 3.77 10^6/uL (4.35-5.55); RED CELL DISTRIBUTION WIDTH 13.5 % (11.5-14.0); SEGMENTED NEUTROPHILS % (AUTO) 81.6 % (42-78); WHITE BLOOD COUNT 13.4 10^3/uL (4.0-10.5)
[2017-06-01 10:03] LABS: ANION GAP 9 (5-19); BLOOD UREA NITROGEN 7 mg/dL (7-20); CALCIUM 8.2 mg/dL (8.4-10.2); CARBON DIOXIDE 26 mmol/L (22-30); CHLORIDE 102 mmol/L (98-107); CREATININE RESULT 0.76 mg/dL (0.52-1.25); GLUCOSE 124 mg/dL (75-110); LIPASE 300.1 U/L (23-300); POTASSIUM 3.3 mmol/L (3.6-5.0); SODIUM 136.7 mmol/L (137-145)
[2017-06-01] MEDS ORDERED: POTASSIUM CHLORIDE 10 MEQ TABLET.SA PO ONE (14:27)
--- NOTE | 2017-06-01 14:29 | PDOC PROGRESS REPORT ---
Subjective Progress Note for:: 06/01/17 Subjective:: He has a bump in the level of lipase, Physical Exam Vital Signs: Temp Pulse Resp BP Pulse Ox 98.4 F 85 18 130/79 H 97 06/01/17 10:45 06/01/17 10:45 06/01/17 10:45 06/01/17 10:45 06/01/17 10:45 Intake & Output 05/31/17 06/01/17 06/02/17 06:59 06:59 06:59 Intake Total 4068 3336 Balance 4068 3336 Weight 105.3 kg 110.1 kg General appearance: PRESENT: no acute distress Eye exam: PRESENT: PERRLA Respiratory exam: PRESENT: clear to auscultation carroll Cardiovascular exam: PRESENT: +S1, +S2 GI/Abdominal exam: PRESENT: soft Neurological exam: PRESENT: alert, CN II-XII grossly intact Results Laboratory Results: 06/01/17 07:52 06/01/17 07:52 06/01/17 06/01/17 07:52 07:52 WBC 13.4 H RBC 3.77 L Hgb 12.4 L Hct 37.1 L MCV 99 H MCH 32.8 MCHC 33.3 RDW 13.5 Plt Count 183 Seg Neutrophils % 81.6 H Lymphocytes % 5.8 L Monocytes % 9.1 Eosinophils % 3.2 Basophils % 0.3 Absolute Neutrophils 10.9 H Absolute Lymphocytes 0.8 Absolute Monocytes 1.2 Absolute Eosinophils 0.4 Absolute Basophils 0.0 Sodium 136.7 L Potassium 3.3 L Chloride 102 Carbon Dioxide 26 Anion Gap 9 BUN 7 Creatinine 0.76 Est GFR ( Amer) > 60 Est GFR (Non-Af Amer) > 60 Glucose 124 H Calcium 8.2 L Lipase 300.1 H 05/27/17 13:38 Blood Blood Culture - Final NO GROWTH IN 5 DAYS 05/27/17 13:46 Blood Blood Culture - Final NO GROWTH IN 5 DAYS Impressions: Abdomen/Pelvis CT 05/27/17 00:00 IMPRESSION: 1. ACUTE PANCREATITIS. NO ABNORMAL FLUID COLLECTIONS. 2. DIFFUSE FATTY INFILTRATION OF THE LIVER. 3. NO OTHER SIGNIFICANT OR ACUTE FINDING IN THE ABDOMEN OR PELVIS ON CT SCAN WITH IV CONTRAST. Assessment & Plan - Diagnosis (1) Acute pancreatitis Qualifiers: Pancreatitis type: unspecified pancreatitis type Acute pancreatitis complication: unspecified Qualified Code(s): K85.90 - Acute pancreatitis without necrosis or infection, unspecified Is this a current diagnosis for this admission?: Yes (2) COPD (chronic obstructive pulmonary disease) Qualifiers: COPD type: unspecified COPD Qualified Code(s): J44.9 - Chronic obstructive pulmonary disease, unspecified Is this a current diagnosis for this admission?: Yes (3) Mixed anxiety and depressive disorder Is this a current diagnosis for this admission?: Yes (4) Persistent insomnia Is this a current diagnosis for this admission?: Yes (5) Probable sepsis Is this a current diagnosis for this admission?: Yes (6) Tobacco dependence Is this a current diagnosis for this admission?: Yes (8) Alcoholic pancreatitis Qualifiers: Chronicity: acute Acute pancreatitis complication: unspecified Qualified Code(s): K85.20 - Alcohol induced acute pancreatitis without necrosis or infection Is this a current diagnosis for this admission?: Yes - Plan Summary Plan Summary: Continue present treatment
[2017-06-01] MEDS ORDERED: LOSARTAN POTASSIUM 50 MG TABLET PO ONE (15:00)
[2017-06-01] MEDS ORDERED: SERTRALINE HCL 50 MG TABLET PO ONE (15:00)
[2017-06-01] MEDS: ACETAMINOPHEN 325 MG TABLET PO PRN (16:17)
--- NOTE | 2017-06-01 17:21 | RADIOLOGY REPORT (SQ) ---
EXAM DESCRIPTION: L SPINE WHOLE COMPLETED DATE/TIME: 06/01/2017 5:09 pm REASON FOR STUDY: back pain COMPARISON: None. NUMBER OF VIEWS: Five views including obliques. TECHNIQUE: AP, lateral, oblique, and sacral radiographic images acquired of the lumbar spine. LIMITATIONS: None. FINDINGS: MINERALIZATION: Normal. SEGMENTATION: Normal. No transitional anatomy. ALIGNMENT: Normal. VERTEBRAE: Maintained height. No fracture or worrisome bone lesion. DISCS: Preserved height. No significant osteophytes or end plate irregularity. POSTERIOR ELEMENTS: Pedicles and facets are intact. No pars defect or posterior arch defects. HARDWARE: None in the spine. PARASPINAL SOFT TISSUES: Normal. PELVIS: Intact as visualized. No fractures or worrisome bone lesions. SI joints intact. OTHER: No other significant finding. IMPRESSION: NORMAL 5 VIEW LUMBAR SPINE. TECHNICAL DOCUMENTATION: JOB ID: [id number] [employer]- All Rights Reserved
[2017-06-01] MEDS: TRAMADOL HCL 50 MG TABLET PO PRN (19:45)
[2017-06-01] MEDS ORDERED: ONDANSETRON HCL INJ/PF 4 MG/2 ML SDV IV PRN (20:18)
[2017-06-02] MEDS: ACETAMINOPHEN 325 MG TABLET PO PRN ×2 (00:15→14:29)
[2017-06-02] MEDS: TRAMADOL HCL 50 MG TABLET PO PRN ×3 (02:19→18:51)
[2017-06-02] MEDS: CEFEPIME HCL 1 GM in DEXTROSE 5%-WATER 50 ML IV SCH ×2 (05:05→18:51)
[2017-06-02] MEDS: METRONIDAZOLE 500 MG/NS RTU 100 ML IV SCH ×3 (05:06→21:32)
[2017-06-02 08:37] LABS: ABSOLUTE EOSINOPHILS # (AUTO) 0.3 10^3/uL (0.0-0.6); ABSOLUTE LYMPHOCYTES (AUTO) 0.9 10^3/uL (0.5-4.7); ABSOLUTE MONOCYTES (AUTO) 1.5 10^3/uL (0.1-1.4); ABSOLUTE NEUT (AUTO) 8.6 10^3/uL (1.7-8.2); BASOPHILS % (AUTO) 0.4 % (0-2); EOSINOPHILS % (AUTO) 2.4 % (0-6); HEMATOCRIT 35.6 % (37.9-51.0); HEMOGLOBIN 12.1 g/dL (13.5-17.0); HGB HCT DIFFERENCE 0.7; LYMPHOCYTES % (AUTO) 7.8 % (13-45); MEAN CORPUSCULAR HEMOGLOBIN 32.8 pg (27.0-33.4); MEAN CORPUSCULAR VOLUME 97 fl (80-97); MONOCYTES % (AUTO) 13.3 % (3-13); RED BLOOD COUNT 3.68 10^6/uL (4.35-5.55); RED CELL DISTRIBUTION WIDTH 13.4 % (11.5-14.0); SEGMENTED NEUTROPHILS % (AUTO) 76.1 % (42-78); WHITE BLOOD COUNT 11.4 10^3/uL (4.0-10.5)
[2017-06-02 08:55] LABS: ANION GAP 10 (5-19); BLOOD UREA NITROGEN 8 mg/dL (7-20); CALCIUM 8.3 mg/dL (8.4-10.2); CARBON DIOXIDE 26 mmol/L (22-30); CHLORIDE 99 mmol/L (98-107); CREATININE RESULT 0.73 mg/dL (0.52-1.25); GLUCOSE 132 mg/dL (75-110); LIPASE 283.6 U/L (23-300); POTASSIUM 3.4 mmol/L (3.6-5.0); SODIUM 134.9 mmol/L (137-145)
[2017-06-02] MEDS: ENOXAPARIN SODIUM INJ 40 MG/0.4 ML DISP.SYRIN SUBCUT SCH (10:20)
[2017-06-02] MEDS: SERTRALINE HCL 50 MG TABLET PO SCH (10:20)
[2017-06-02] MEDS: LANSOPRAZOLE 30 MG TAB.RAP.DR PO SCH (10:21)
[2017-06-02] MEDS: LOSARTAN POTASSIUM 50 MG TABLET PO SCH (10:21)
[2017-06-02] MEDS: NICOTINE 21 MG/24 HR PATCH.TD24 TD SCH (10:22)
[2017-06-02] MEDS ORDERED: ALBUTEROL SULFATE HFA (90 MCG/PUFF) 200 PUFF/8.5 GM MDI IH PRN (10:23)
[2017-06-02] MEDS: FLUTICASONE NASAL SPRAY 50 MCG/SPRY 120 SPRAY/16 GM NAREB SCH (10:24)
[2017-06-02] MEDS ORDERED: HYDRALAZINE HCL INJ/PF 20 MG/1 ML SDV IV PRN (10:26)
--- NOTE | 2017-06-02 18:43 | PDOC PROGRESS REPORT ---
Subjective Progress Note for:: 06/02/17 Subjective:: Patient reported acute back pain yesterday but improving with use of K-Pad. No nausea or vomiting. No abdominal pain. Remain on full liquid diet. His serum lipase is currently in normal range. No nausea, vomiting or abdominal pain. No fever or chills. No chest pain or difficulty with breathing. Physical Exam Vital Signs: Temp Pulse Resp BP Pulse Ox 98.4 F 65 18 135/86 H 98 06/02/17 15:25 06/02/17 15:25 06/02/17 15:25 06/02/17 15:25 06/02/17 15:25 Intake & Output 06/01/17 06/02/17 06/03/17 06:59 06:59 06:59 Intake Total 3336 1921 505 Output Total 775 200 Balance 3336 1146 305 Weight 110.1 kg 109.5 kg Physical Exam: General appearance: PRESENT: no acute distress, cooperative, obese Head exam: PRESENT: atraumatic, normocephalic Eye exam: PRESENT: conjunctiva pink, EOMI, PERRLA. ABSENT: scleral icterus Respiratory exam: PRESENT: clear to auscultation carroll Cardiovascular exam: PRESENT: RRR. ABSENT: diastolic murmur, rubs, systolic murmur GI/Abdominal exam: PRESENT: normal bowel sounds. ABSENT: ascites, abdominal pain , guarding, rebound Extremities exam: ABSENT: pedal edema Musculoskeletal exam: PRESENT: normal inspection Neurological exam: PRESENT: alert, awake, oriented to person, oriented to place , oriented to time, oriented to situation, CN II-XII grossly intact. ABSENT: motor sensory deficit Psychiatric exam: PRESENT: appropriate affect, normal mood. ABSENT: homicidal ideation, suicidal ideation Skin exam: PRESENT: dry, intact, warm. ABSENT: cyanosis, rash Results Laboratory Results: 06/02/17 07:55 06/02/17 07:55 06/02/17 06/02/17 07:55 07:55 WBC 11.4 H RBC 3.68 L Hgb 12.1 L Hct 35.6 L MCV 97 MCH 32.8 MCHC 34.0 RDW 13.4 Plt Count 193 Seg Neutrophils % 76.1 Lymphocytes % 7.8 L Monocytes % 13.3 H Eosinophils % 2.4 Basophils % 0.4 Absolute Neutrophils 8.6 H Absolute Lymphocytes 0.9 Absolute Monocytes 1.5 H Absolute Eosinophils 0.3 Absolute Basophils 0.0 Sodium 134.9 L Potassium 3.4 L Chloride 99 Carbon Dioxide 26 Anion Gap 10 BUN 8 Creatinine 0.73 Est GFR ( Amer) > 60 Est GFR (Non-Af Amer) > 60 Glucose 132 H Calcium 8.3 L Magnesium 2.0 Lipase 283.6 Impressions: Abdomen/Pelvis CT 05/27/17 00:00 IMPRESSION: 1. ACUTE PANCREATITIS. NO ABNORMAL FLUID COLLECTIONS. 2. DIFFUSE FATTY INFILTRATION OF THE LIVER. 3. NO OTHER SIGNIFICANT OR ACUTE FINDING IN THE ABDOMEN OR PELVIS ON CT SCAN WITH IV CONTRAST. Lumbar Spine X-Ray 06/01/17 15:39 IMPRESSION: NORMAL 5 VIEW LUMBAR SPINE. Assessment & Plan - Diagnosis (1) Acute pancreatitis Qualifiers: Pancreatitis type: unspecified pancreatitis type Acute pancreatitis complication: unspecified Qualified Code(s): K85.90 - Acute pancreatitis without necrosis or infection, unspecified Is this a current diagnosis for this admission?: Yes (2) Probable sepsis Is this a current diagnosis for this admission?: Yes (3) HTN (hypertension) Qualifiers: Hypertension type: essential hypertension Qualified Code(s): I10 - Essential (primary) hypertension Is this a current diagnosis for this admission?: Yes (4) COPD (chronic obstructive pulmonary disease) Qualifiers: COPD type: unspecified COPD Qualified Code(s): J44.9 - Chronic obstructive pulmonary disease, unspecified Is this a current diagnosis for this admission?: Yes (5) Tobacco dependence Is this a current diagnosis for this admission?: Yes (6) Mixed anxiety and depressive disorder Is this a current diagnosis for this admission?: Yes (7) Persistent insomnia Is this a current diagnosis for this admission?: Yes - Time Time Spent with patient: 25-34 minutes Medications reviewed and adjusted accordingly: Yes Anticipated discharge: Home Within: Other - Inpatient Certification Based on my medical assessment, after consideration of the patient's comorbidities, presenting symptoms, or acuity I expect that the services needed warrant INPATIENT care.: Yes I certify that my determination is in accordance with my understanding of Medicare's requirements for reasonable and necessary INPATIENT services [42 CFR 412.3e].: Yes Medical Necessity: Need Close Monitoring Due to Risk of Patient Decompensation, Need For IV Fluids, Need For Continuous Telemetry Monitoring, Need for Nebulizer Therapy and Monitoring of Response, Need for IV Antibiotics, Risk of Complication if Not Cared For in Hospital Post Hospital Care: D/C [employer] Documentation - Plan Summary Plan Summary: Continue IV Cefepime and Metronidazole coverage. Repeat CBC with diff, Lipase level , CMP in AM. Advance food consistency to mechanical soft tonight and regular diet at breakfast. If patient continue to tolerate food advance consider discharge home tomorrow. He will receive potassium replacement. Check serum magnesium level.
[2017-06-02] MEDS: POTASSIUM CHLORIDE 10 MEQ TABLET.SA PO SCH ×2 (18:51→21:31)
[2017-06-02] MEDS: IPRATROPIUM/ALBUTEROL 0.5-2.5 MG/3 ML AMPUL NEB PRN (21:17)
[2017-06-02] MEDS ORDERED: (PENDING PHARMACY ID) (Trazodone Hcl [Desyrel] 300 MG) PO SCH (22:00)
[2017-06-02] MEDS ORDERED: TRAZODONE HCL 50 MG TABLET PO SCH (22:00)
[2017-06-03] MEDS: CEFEPIME HCL 1 GM in DEXTROSE 5%-WATER 50 ML IV SCH (05:32)
[2017-06-03] MEDS: METRONIDAZOLE 500 MG/NS RTU 100 ML IV SCH (06:12)
[2017-06-03 06:28] LABS: AMYLASE 32 U/L (30-110); ANION GAP 9 (5-19); BLOOD UREA NITROGEN 7 mg/dL (7-20); CALCIUM 8.5 mg/dL (8.4-10.2); CARBON DIOXIDE 25 mmol/L (22-30); CHLORIDE 102 mmol/L (98-107); CREATININE RESULT 0.76 mg/dL (0.52-1.25); GLUCOSE 116 mg/dL (75-110); LIPASE 186.1 U/L (23-300); SODIUM 135.8 mmol/L (137-145)
[2017-06-03 06:34] LABS: ABSOLUTE BASOPHILS # (AUTO) 0.1 10^3/uL (0.0-0.2); ABSOLUTE EOSINOPHILS # (AUTO) 0.2 10^3/uL (0.0-0.6); ABSOLUTE LYMPHOCYTES (AUTO) 0.8 10^3/uL (0.5-4.7); ABSOLUTE MONOCYTES (AUTO) 1.3 10^3/uL (0.1-1.4); ABSOLUTE NEUT (AUTO) 7.9 10^3/uL (1.7-8.2); BASOPHILS % (AUTO) 0.5 % (0-2); HEMATOCRIT 34.9 % (37.9-51.0); HEMOGLOBIN 11.9 g/dL (13.5-17.0); HGB HCT DIFFERENCE 0.8; MEAN CORPUSCULAR VOLUME 97 fl (80-97); MONOCYTES % (AUTO) 12.7 % (3-13); RED CELL DISTRIBUTION WIDTH 13.7 % (11.5-14.0); SEGMENTED NEUTROPHILS % (AUTO) 76.8 % (42-78); WHITE BLOOD COUNT 10.3 10^3/uL (4.0-10.5)
[2017-06-03 06:40] LABS: POTASSIUM 4.5 mmol/L (3.6-5.0)
[2017-06-03] MEDS: LANSOPRAZOLE 30 MG TAB.RAP.DR PO SCH (07:52)
[2017-06-03] MEDS: ENOXAPARIN SODIUM INJ 40 MG/0.4 ML DISP.SYRIN SUBCUT SCH (07:52)
--- NOTE | 2017-06-03 08:32 | PDOC DISCHARGE SUMMARY ---
General - Admit/Disc Date/PCP Admission Date/Primary Care Provider: 05/27/17 12:30 ROXIE HOOD Discharge Date: 06/03/17 - Discharge Diagnosis (1) Acute pancreatitis Is this a current diagnosis for this admission?: Yes (2) Probable sepsis Is this a current diagnosis for this admission?: Yes (3) HTN (hypertension) Is this a current diagnosis for this admission?: Yes (4) COPD (chronic obstructive pulmonary disease) Is this a current diagnosis for this admission?: Yes (5) Tobacco dependence Is this a current diagnosis for this admission?: Yes (6) Mixed anxiety and depressive disorder Is this a current diagnosis for this admission?: Yes (7) Persistent insomnia Is this a current diagnosis for this admission?: Yes - Additional Information Discharge Diet: As Tolerated, Regular Discharge Activity: Activity As Tolerated Home Medications: Albuterol Sulfate [Proair Respiclick] 2 puff IH Q6HP PRN 05/27/17 Fluticasone Propionate [Flonase Nasal [place] 50 Mcg/[place] 16 gm] 1 spray NAREB DAILY 05/27/17 Ipratropium/Albuterol Sulfate [Duoneb 3 ml Ampul] 3 ml NEB RTQ6HP PRN 05/27/17 Losartan Potassium [Cozaar 100 mg Tablet] 100 mg PO DAILY 05/27/17 Multivit-Min/FA/Lycopen/Lutein [Centrum Silver Men Tablet] 1 tab PO DAILY Sertraline HCl [Zoloft] 100 mg PO DAILY 05/27/17 Trazodone HCl [Desyrel] 300 mg PO QHS 05/27/17 Nicotine [Nicoderm 21 mg/24 Hr Transderm Patch] 1 each TD DAILY #30 patch.[email or web address] 06/03/17 History of Present Illness History of Present Illness: ESTRELLA GAONA is a 52 year old male who presented to the office earlier today with worsening abdominal pain. There is associated nausea and vomiting. Patient reported chills and possible fever. Patient reported associate decrease appetite and p.o intake. He described abdominal pain as dull and crampy in character. His laboratory evaluation revealed significant leukocytosis with total WBC of 24,000. tachycardia and lower than usual blood pressure in the office. In view of these findings he was advised hospitalization for further evaluation and management. Hospital Course Hospital Course: Patient responded to NPO status management for acute pancreatitis with need for antibiotic coverage due to significant leukocytosis. His abdominal pain eventually resolved. He was restarted on clear liquid diet and gradually increase consistency without rebound elevation of his serum lipase or amylase level. He remain afebrile. His cigarette smoking was managed with nicotine patch. He will be discharge home today with nicotine patch at 21 mg / day with supporting smoking cessation counseling. Patient was instructed to continue abstinence from alcoholic beverages. Physical Exam Vital Signs: Temp Pulse Resp BP Pulse Ox 98.4 F 74 19 128/72 H 100 06/03/17 07:41 06/03/17 07:41 06/03/17 07:41 06/03/17 07:41 06/03/17 07:41 Intake & Output 06/02/17 06/03/17 06/04/17 06:59 06:59 06:59 Intake Total 1921 1967 Output Total 775 1720 Balance 1146 247 Weight 109.5 kg 110.2 kg Physical Exam: General appearance: PRESENT: no acute distress, cooperative, obese Head exam: PRESENT: atraumatic, normocephalic Eye exam: PRESENT: conjunctiva pink, EOMI, PERRLA. ABSENT: scleral icterus Respiratory exam: PRESENT: clear to auscultation carroll Cardiovascular exam: PRESENT: RRR. ABSENT: diastolic murmur, rubs, systolic murmur GI/Abdominal exam: PRESENT: normal bowel sounds. ABSENT: ascites, abdominal pain , guarding, rebound Extremities exam: ABSENT: pedal edema Musculoskeletal exam: PRESENT: normal inspection Neurological exam: PRESENT: alert, awake, oriented to person, oriented to place , oriented to time, oriented to situation, CN II-XII grossly intact. ABSENT: motor sensory deficit Psychiatric exam: PRESENT: appropriate affect, normal mood. ABSENT: homicidal ideation, suicidal ideation Skin exam: PRESENT: dry, intact, warm. ABSENT: cyanosis, rash Results Laboratory Results: 06/03/17 05:39 06/03/17 05:39 06/02/17 06/02/17 06/03/17 07:55 07:55 05:39 WBC 11.4 H 10.3 RBC 3.68 L 3.60 L Hgb 12.1 L 11.9 L Hct 35.6 L 34.9 L MCV 97 97 MCH 32.8 33.0 MCHC 34.0 34.0 RDW 13.4 13.7 Plt Count 193 193 Seg Neutrophils % 76.1 76.8 Lymphocytes % 7.8 L 8.0 L Monocytes % 13.3 H 12.7 Eosinophils % 2.4 2.0 Basophils % 0.4 0.5 Absolute Neutrophils 8.6 H 7.9 Absolute Lymphocytes 0.9 0.8 Absolute Monocytes 1.5 H 1.3 Absolute Eosinophils 0.3 0.2 Absolute Basophils 0.0 0.1 Sodium 134.9 L Potassium 3.4 L Chloride 99 Carbon Dioxide 26 Anion Gap 10 BUN 8 Creatinine 0.73 Est GFR ( Amer) > 60 Est GFR (Non-Af Amer) > 60 Glucose 132 H Calcium 8.3 L Magnesium 2.0 Amylase Lipase 283.6 06/03/17 05:39 WBC RBC Hgb Hct MCV MCH MCHC RDW Plt Count Seg Neutrophils % Lymphocytes % Monocytes % Eosinophils % Basophils % Absolute Neutrophils Absolute Lymphocytes Absolute Monocytes Absolute Eosinophils Absolute Basophils Sodium 135.8 L Potassium 4.5 D Chloride 102 Carbon Dioxide 25 Anion Gap 9 BUN 7 Creatinine 0.76 Est GFR ( Amer) > 60 Est GFR (Non-Af Amer) > 60 Glucose 116 H Calcium 8.5 Magnesium Amylase 32 Lipase 186.1 Impressions: Abdomen/Pelvis CT 05/27/17 00:00 IMPRESSION: 1. ACUTE PANCREATITIS. NO ABNORMAL FLUID COLLECTIONS. 2. DIFFUSE FATTY INFILTRATION OF THE LIVER. 3. NO OTHER SIGNIFICANT OR ACUTE FINDING IN THE ABDOMEN OR PELVIS ON CT SCAN WITH IV CONTRAST. Lumbar Spine X-Ray 06/01/17 15:39 IMPRESSION: NORMAL 5 VIEW LUMBAR SPINE. Qualifiers PATEINT BEING DISCHARGED WITH ANY OF THE FOLLOWING DIAGNOSIS?: No Plan Discharge Plan: Discharge home today. Follow up in the office as instructed upon discharge. Time Spent: Less than 30 Minutes
[2017-06-03 08:42] VITALS: BP 112/71
[2017-06-03] MEDS: LOSARTAN POTASSIUM 50 MG TABLET PO SCH (09:10)
[2017-06-03] MEDS: NICOTINE 21 MG/24 HR PATCH.TD24 TD SCH (09:10)
[2017-06-03] MEDS: FLUTICASONE NASAL SPRAY 50 MCG/SPRY 120 SPRAY/16 GM NAREB SCH (09:10)
[2017-06-03] MEDS: SERTRALINE HCL 50 MG TABLET PO SCH (09:10)
[2017-06-03] MEDS ORDERED: MULTIVITAMIN TABLET PO SCH (10:00)
[2017-06-03] MEDS ORDERED: (PENDING PHARMACY ID) (Multivit-Min/Fa/Lycopen/Lutein [Centrum Silver Men Tablet] 1 TAB) PO SCH (10:00)
== END 2017-06-03 10:00 | disposition home or self-care (01) | DRG 871 ==
LOC: 4N 12:30 → 3S 20:48
PROVIDERS: ADMIT Internal Medicine Geriatric Medicine; ATTEND Internal Medicine Geriatric Medicine
PROC: 3E0F73Z Introduction of Anti-inflammatory into Respiratory Tract, Via Natural or Artificial Opening (ICD-10-PCS; principal; 2017-05-28)
DX: A41.9 Sepsis, unspecified organism (principal); K85.90 Acute pancreatitis without necrosis or infection, unspecified; I10 Essential (primary) hypertension; J44.9 Chronic obstructive pulmonary disease, unspecified; F17.210 Nicotine dependence, cigarettes, uncomplicated; F41.9 Anxiety disorder, unspecified; F32.9 Major depressive disorder, single episode, unspecified; G47.09 Other insomnia; Z79.899 Other long term (current) drug therapy
CPT/HCPCS: 36415; 72110; 74177; 80048; 80053; 80061; 80307; 81001; 82150; 82962; 83690; 83735; 85025; 85027; 85610; 85730; 87040; 94640; J0360; J0692; J0744; J1650; J3490; J7030; J7620

== ENCOUNTER → 2017-06-13 | Outpatient (CLI) | payer MEDICARE ==
[2017-06-13 13:52] LABS: ABSOLUTE BASOPHILS # (AUTO) 0.1 10^3/uL (0.0-0.2); ABSOLUTE EOSINOPHILS # (AUTO) 0.1 10^3/uL (0.0-0.6); ABSOLUTE LYMPHOCYTES (AUTO) 0.9 10^3/uL (0.5-4.7); ABSOLUTE MONOCYTES (AUTO) 0.5 10^3/uL (0.1-1.4); ABSOLUTE NEUT (AUTO) 3.5 10^3/uL (1.7-8.2); HEMATOCRIT 40.5 % (37.9-51.0); HGB HCT DIFFERENCE 1.5; LYMPHOCYTES % (AUTO) 17.7 % (13-45); MEAN CORPUSCULAR HEMOGLOBIN 33.3 pg (27.0-33.4); MEAN CORPUSCULAR HGB CONC 34.5 g/dL (32.0-36.0); MEAN CORPUSCULAR VOLUME 97 fl (80-97); MONOCYTES % (AUTO) 9.3 % (3-13); RED CELL DISTRIBUTION WIDTH 13.7 % (11.5-14.0)
== END ==
LOC: OD 12:36
PROVIDERS: ATTEND Internal Medicine Geriatric Medicine
DX: K85.90 Acute pancreatitis without necrosis or infection, unspecified (principal); R53.83 Other fatigue
CPT/HCPCS: 36415; 82150; 83690; 84443; 85025

== ENCOUNTER 2017-12-23 00:27 | Inpatient (IN) | payer MEDICARE ==
[2017-12-23] MEDS ORDERED: ONDANSETRON HCL INJ/PF 4 MG/2 ML SDV IV ONE ×2 (01:12→02:01)
[2017-12-23] MEDS ORDERED: NORMAL SALINE 1000 ML 1,000 ML IV ONE ×2 (01:26→07:07)
[2017-12-23] MEDS ORDERED: HYDROMORPHONE HCL INJ/PF 2 MG/ML AMPULE IV ONE (02:01)
--- NOTE | 2017-12-23 02:04 | ER Document Report ---
ED General - General Stated Complaint: VOMITING,DIARRHEA Time Seen by Provider: 12/23/17 01:12 Mode of Arrival: Medic Information source: Patient Notes: 52-year-old male history of pancreatitis liver disease due to chronic alcohol abuse presents with complaints of nausea vomiting diarrhea of over 3 week duration. Patient notes since this morning he has had dark tarry stools. Patient states that is tender in the epigastric region left upper and right upper quadrants pt states he has been sober for 2 years TRAVEL OUTSIDE OF THE [place] IN LAST 30 DAYS: No - HPI Onset: Other Onset/Duration: Persistent Quality of pain: Sharp Severity: Moderate Pain Level: 4 Associated symptoms: Diarrhea, Nausea, Vomiting Exacerbated by: Food Relieved by: Denies Similar symptoms previously: Yes Recently seen / treated by doctor: Yes - Related Data Allergies/Adverse Reactions: acetaminophen [From Lortab] Allergy (Verified 05/27/17 20:21) hydrocodone [From Lortab] Allergy (Verified 05/27/17 20:21) hydroxyzine Allergy (Verified 05/27/17 20:21) zolpidem [From Ambien] Allergy (Verified 05/27/17 20:21) Past Medical History - Social History Smoking Status: Never Smoker Cigarette use (# per day): No Chew tobacco use (# tins/day): No Smoking Education Provided: No Family History: Reviewed & Not Pertinent - Past Medical History Cardiac Medical History: Reports: Hx Hypertension Pulmonary Medical History: Reports: Hx COPD Psychiatric Medical History: Reports: Hx Depression Past Surgical History: Reports: Hx Appendectomy, Hx Tonsillectomy - Immunizations Hx Diphtheria, Pertussis, Tetanus Vaccination: No Hx Pneumococcal Vaccination: 11/17/10 Review of Systems - Review of Systems Notes: REVIEW OF SYSTEMS: CONSTITUTIONAL : Denies fever, chills, or sweats. Denies recent illness. EENT: Denies eye, ear, throat, or mouth pain or symptoms. Denies nasal or sinus congestion or discharge. Denies throat, tongue, or mouth swelling or difficulty swallowing. CARDIOVASCULAR: Denies chest pain. Denies palpitations or racing or irregular heart beat. Denies ankle edema. RESPIRATORY: Denies cough, cold, or chest congestion. Denies shortness of breath, difficulty breathing, or wheezing. GASTROINTESTINAL: Admits to nausea vomiting diarrhea dark tarry stools GENITOURINARY: Denies difficulty urinating, painful urination, burning, frequency, blood in urine, or discharge. MUSCULOSKELETAL: Denies back or neck pain or stiffness. Denies joint pain or swelling. SKIN: Denies rash, lesions or sores. HEMATOLOGIC : Denies easy bruising or bleeding. LYMPHATIC: Denies swollen, enlarged glands. NEUROLOGICAL: Denies confusion or altered mental status. Denies passing out or loss of consciousness. Denies dizziness or lightheadedness. Denies headache. Denies weakness or paralysis or loss of use of either side. Denies problems with gait or speech. Denies sensory loss, numbness, or tingling. Denies seizures. PSYCHIATRIC: Denies anxiety or stress. Denies depression, suicidal ideation, or homicidal ideation. ALL OTHER SYSTEMS REVIEWED AND NEGATIVE. Dictation was performed using [employer] voice recognition software PHYSICAL EXAMINATION: GENERAL: Well-appearing, well-nourished and in no acute distress. HEAD: Atraumatic, normocephalic. EYES: Pupils equal round and reactive to light, extraocular movements intact, sclera anicteric, conjunctiva are normal. ENT: Nares patent, oropharynx clear without exudates. Moist mucous membranes. NECK: Normal range of motion, supple without lymphadenopathy LUNGS: Breath sounds clear to auscultation bilaterally and equal. No wheezes rales or rhonchi. HEART: Tachycardic ABDOMEN: Tender worse in the left upper epigastric regions no guarding no rebound. Musculoskeletal: Normal range of motion, no pitting or edema. No cyanosis. NEUROLOGICAL: Cranial nerves grossly intact. Normal speech, normal gait. Normal sensory, motor exams PSYCH: Normal mood, normal affect. SKIN: Warm, Dry, normal turgor, no rashes or lesions noted. Physical Exam - Vital signs Vitals: Temp 98.6 F 12/23/17 00:48 Course - Re-evaluation Re-evalutation: 12/23/17 02:03 Probable pancreatitis versus peptic ulcer disease versus esophageal variceal bleed but unlikely due ot lack of vomiting blood 12/23/17 02:41 Hemoccult pending 12/23/17 03:25 Hemoccult was positive patient will be started on Protonix, he is noted to be in acute pancreatitis again, patient given pain control IV fluids I spoke with patient's primary care physician will admit to his service - Vital Signs Vital signs: Temp Pulse Resp BP Pulse Ox 98.6 F 12/23/17 00:48 - Laboratory Result Diagrams: 12/23/17 01:30 12/23/17 01:30 Laboratory results interpreted by me: 12/23/17 12/23/17 01:30 01:30 WBC 15.7 H RBC 4.06 L MCV 100 H MCH 34.5 H Seg Neuts % (Manual) 85 H Band Neutrophils % 2 L Lymphocytes % (Manual) 10 L Abs Neuts (Manual) 13.7 H Carbon Dioxide 16 L Total Bilirubin 1.4 H Direct Bilirubin 0.9 H AST 99 H Total Protein 5.8 L Lipase 2682.5 H - Diagnostic Test Radiology reviewed: Image reviewed, Reports reviewed Critical Care Note - Critical Care Note Total time excluding time spent on procedures (mins): 34 Comments: 34 minutes of critical care time spent in direct contact evaluating and reevaluating the patient, treating symptoms, reviewing labs and studies and speaking with family and consultants excluding any procedures Discharge - Discharge Clinical Impression: Sinus tachycardia Acute pancreatitis Qualifiers: Pancreatitis type: unspecified pancreatitis type Acute pancreatitis complication: unspecified Qualified Code(s): K85.90 - Acute pancreatitis without necrosis or infection, unspecified Abdominal pain Qualifiers: Abdominal location: unspecified location Qualified Code(s): R10.9 - Unspecified abdominal pain Condition: Fair Disposition: ADMITTED INPATIENT Admitting Provider: [facility] Admitted: Telemetry Referrals: ROXIE HOOD MD [Primary Care Provider] - Follow up as needed
[2017-12-23 02:09] LABS: HEMATOCRIT 40.8 % (37.9-51.0); MEAN CORPUSCULAR HEMOGLOBIN 34.5 pg (27.0-33.4); MEAN CORPUSCULAR HGB CONC 34.4 g/dL (32.0-36.0); MEAN CORPUSCULAR VOLUME 100 fl (80-97); PLATELET COUNT 167 10^3/uL (150-450); RED BLOOD COUNT 4.06 10^6/uL (4.35-5.55); RED CELL DISTRIBUTION WIDTH 13.4 % (11.5-14.0); WHITE BLOOD COUNT 15.7 10^3/uL (4.0-10.5)
[2017-12-23 02:32] LABS: ALANINE AMINOTRANSFERASE 67 U/L (21-72); ALBUMIN 3.7 g/dL (3.5-5.0); ALKALINE PHOSPHATASE 114 U/L (38-126); ASPARTATE AMINO TRANSFERASE 99 U/L (17-59); BILIRUBIN,DIRECT 0.9 mg/dL (0.0-0.4); BILIRUBIN,TOTAL 1.4 mg/dL (0.2-1.3); BLOOD UREA NITROGEN 17 mg/dL (7-20); CALCIUM 8.8 mg/dL (8.4-10.2); GLUCOSE 95 mg/dL (75-110); TOTAL PROTEIN 5.8 g/dL (6.3-8.2)
[2017-12-23 02:39] LABS: ABSOLUTE LYMPHOCYTES# (MANUAL) 1.6 10^3/uL (0.5-4.7); ABSOLUTE MONOCYTES # (MANUAL) 0.5 10^3/uL (0.1-1.4); ABSOLUTE NEUTROPHILS# (MANUAL) 13.7 10^3/uL (1.7-8.2); BAND NEUTROPHILS % (MANUAL) 2 % (3-5); BASOPHILS % (MANUAL) 0 % (0-2); EOSINOPHILS % (MANUAL) 0 % (0-6); LYMPHOCYTES % (MANUAL) 10 % (13-45); MONOCYTES % (MANUAL) 3 % (3-13); PLATELET COMMENT ADEQUATE; SEGMENTED NEUTROPHILS % (MAN) 85 % (42-78); TOTAL CELLS COUNTED 100
[2017-12-23 02:54] LABS: LIPASE 2682.5 U/L (23-300)
[2017-12-23] MEDS: NORMAL SALINE 1000 ML 1,000 ML IV PRN ×4 (03:00→17:54)
[2017-12-23] MEDS ORDERED: PANTOPRAZOLE SODIUM 40 MG VIAL IV ONE (03:07)
[2017-12-23] MEDS ORDERED: PANTOPRAZOLE SODIUM 40 MG VIAL IV PRN (03:12)
[2017-12-23 03:19] LABS: ANION GAP 19 (5-19); CARBON DIOXIDE 16 mmol/L (22-30); CHLORIDE 105 mmol/L (98-107); POTASSIUM 4.4 mmol/L (3.6-5.0); SODIUM 139.6 mmol/L (137-145)
--- NOTE | 2017-12-23 05:07 | RADIOLOGY REPORT (SQ) ---
EXAM DESCRIPTION: CT ABDOMEN AND PELVIS WITH CONTRAST CLINICAL HISTORY: abd pain vomiting COMPARISON: 10/26/2014 TECHNIQUE: CT of the abdomen and pelvis are performed during IV bolus administration of 100 mL of Isovue-370. DLP: 1119.68 mGycm FINDINGS: Abdomen: The liver has normal size and decreased density. No intrahepatic mass or biliary dilatation. No calcified gallstones. Peripancreatic fat stranding without definite evidence of pancreatic necrosis or well-defined pancreatic fluid collection. Minimal free fluid in the retroperitoneal space. The spleen and adrenal glands are unremarkable. The kidneys have normal size and contour without evidence of solid mass or hydronephrosis. Aortoiliac atherosclerosis. IVC is unremarkable. The portal vein patent. The proximal visceral and renal arteries are patent. No free intraperitoneal air. The stomach and duodenum have normal course. Pelvis: Prostate is not enlarged. Urinary bladder is unremarkable. No free pelvic fluid or lymphadenopathy. No dilated loops of large or small bowel. Normal appendix. The visualized lung bases are clear. No destructive bone lesions identified. IMPRESSION: 1. Findings compatible with acute pancreatitis. No evidence of pancreatic necrosis or well-circumscribed peripancreatic fluid collection. 2. Hepatic steatosis. This exam was performed according to our departmental dose-optimization program, which includes automated exposure control, adjustment of the mA and/or kV according to patient size and/or use of iterative reconstruction technique.
[2017-12-23] MEDS ORDERED: NORMAL SALINE 1000 ML 1,000 ML IV PRN (07:06)
[2017-12-23] MEDS ORDERED: GLUCAGON,HUMAN RECOMB 1 MG INJ SUBCUT PRN (07:48)
[2017-12-23] MEDS ORDERED: DEXTROSE 40% GEL 15 GM TUBE PO PRN ×2 (07:48)
[2017-12-23] MEDS ORDERED: DEXTROSE 50%-WATER 25 GM/50 ML DISP.SYRIN IV PRN ×2 (07:48)
[2017-12-23] MEDS ORDERED: HYDROMORPHONE HCL INJ/PF 2 MG/ML AMPULE IV PRN (08:11)
[2017-12-23] MEDS ORDERED: ONDANSETRON HCL INJ/PF 4 MG/2 ML SDV IV PRN (08:20)
--- NOTE | 2017-12-23 08:44 | PDOC H&P ---
History of Present Illness Admission Date/PCP: 12/23/17 03:37 ROXIE ROBBYCrystal Patient complains of: Abdominal Pain History of Present Illness: ESTRELLA GAONA is a 52 year old male known to my practice who presented to the ED via EMS service with complain of abdominal pain, nausea, vomiting and diarrhea. Patient reported onset of abdominal pain about 2 days prior to presentation but severely worsen on the day of his presentation. He described pain as very sharp and localized to mid abdomen and left upper region. He denied hematemesis, tarry or bloody stool. He denied alcohol consumption in any form. Patient denied any definite fever or chills. No dizziness, headache, sinus congestion, body aches and pain, no dysuria or hematuria. He denied radiation of pain into his back or any associated flank pain. Continue to smoke about 1/2 PPD daily. Past Medical History Cardiac Medical History: Reports: Hypertension Pulmonary Medical History: Reports: Chronic Obstructive Pulmonary Disease (COPD) Psychiatric Medical History: Reports: Depression Past Surgical History Past Surgical History: Reports: Appendectomy, Tonsillectomy Social History Smoking Status: Never Smoker Frequency of Alcohol Use: None Hx Recreational Drug Use: No Drugs: None Hx Prescription Drug Abuse: No Family History Family History: Reviewed & Not Pertinent Parental Family History Reviewed: Yes Children Family History Reviewed: Yes Sibling(s) Family History Reviewed.: Yes Medication/Allergy Home Medications: Losartan Potassium [Cozaar 100 mg Tablet] 100 mg PO DAILY 05/27/17 Sertraline HCl [Zoloft] 100 mg PO DAILY 05/27/17 Trazodone HCl [Desyrel] 300 mg PO QHS 05/27/17 Allergies/Adverse Reactions: acetaminophen [From Lortab] Allergy (Verified 05/27/17 20:21) hydrocodone [From Lortab] Allergy (Verified 05/27/17 20:21) hydroxyzine Allergy (Verified 05/27/17 20:21) zolpidem [From Ambien] Allergy (Verified 05/27/17 20:21) Review of Systems All systems: reviewed and no additional remarkable complaints except as stated Physical Exam Vital Signs: Temp Pulse Resp BP Pulse Ox 98.3 F 24 H 141/99 H 95 12/23/17 07:09 12/23/17 07:07 12/23/17 07:07 12/23/17 07:07 General appearance: PRESENT: cooperative, mild distress - due to abdominal pain Head exam: PRESENT: atraumatic, normocephalic Eye exam: PRESENT: conjunctiva pink, EOMI, PERRLA. ABSENT: scleral icterus Mouth exam: PRESENT: moist - fairly, tongue midline Neck exam: PRESENT: full ROM. ABSENT: carotid bruit, JVD, lymphadenopathy, thyromegaly Respiratory exam: PRESENT: clear to auscultation carroll Cardiovascular exam: PRESENT: RRR. ABSENT: diastolic murmur, rubs, systolic murmur Pulses: PRESENT: normal dorsalis pedis pul, +2 pedal pulses bilateral Vascular exam: PRESENT: normal capillary refill. ABSENT: pallor GI/Abdominal exam: PRESENT: normal bowel sounds, soft, tenderness - epigastric and LUQ region with some degree of guarding. ABSENT: distended, guarding, mass , organolmegaly, rebound Rectal exam: PRESENT: deferred Extremities exam: ABSENT: pedal edema Musculoskeletal exam: PRESENT: normal inspection Neurological exam: PRESENT: alert, awake, oriented to person, oriented to place , oriented to time, oriented to situation, CN II-XII grossly intact. ABSENT: motor sensory deficit Psychiatric exam: PRESENT: appropriate affect, normal mood. ABSENT: homicidal ideation, suicidal ideation Skin exam: PRESENT: dry, intact, warm. ABSENT: cyanosis, rash Results Impressions: Abdomen/Pelvis CT 12/23/17 02:40 IMPRESSION: 1. Findings compatible with acute pancreatitis. No evidence of pancreatic necrosis or well-circumscribed peripancreatic fluid collection. 2. Hepatic steatosis. This exam was performed according to our departmental dose-optimization program, which includes automated exposure control, adjustment of the mA and/or kV according to patient size and/or use of iterative reconstruction technique. Assessment & Plan - Diagnosis (1) Recurrent acute pancreatitis Is this a current diagnosis for this admission?: Yes Plan: See admitting attending physician orders. (2) HTN (hypertension) Qualifiers: Hypertension type: essential hypertension Qualified Code(s): I10 - Essential (primary) hypertension Is this a current diagnosis for this admission?: Yes Plan: See admitting attending physician orders. (3) Mixed anxiety and depressive disorder Is this a current diagnosis for this admission?: Yes Plan: See admitting attending physician orders. (4) Tobacco dependence Is this a current diagnosis for this admission?: Yes Plan: See admitting attending physician orders. - Time Time Spent: 50 to 70 Minutes Medications reviewed and adjusted accordingly: Yes Anticipated discharge: Home Within: Other - Inpatient Certification Based on my medical assessment, after consideration of the patient's comorbidities, presenting symptoms, or acuity I expect that the services needed warrant INPATIENT care.: Yes I certify that my determination is in accordance with my understanding of Medicare's requirements for reasonable and necessary INPATIENT services [42 CFR 412.3e].: Yes Medical Necessity: Need Close Monitoring Due to Risk of Patient Decompensation, Need For IV Fluids, Need For Continuous Telemetry Monitoring, Need for Pain Control, Need for IV Antibiotics, Risk of Complication if Not Cared For in Hospital Post 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
[2017-12-23] MEDS ORDERED: IPRATROPIUM/ALBUTEROL 0.5-2.5 MG/3 ML AMPUL NEB PRN (08:46)
[2017-12-23] MEDS ORDERED: (PENDING PHARMACY ID) (Albuterol Sulfate [Proair Respiclick] 2 PUFF) IH PRN (08:46)
[2017-12-23] MEDS ORDERED: ALBUTEROL SULFATE HFA (90 MCG/PUFF) 200 PUFF/8.5 GM MDI IH PRN (08:49)
[2017-12-23] MEDS: FAMOTIDINE INJ/PF 20 MG/2 ML SDV IV SCH ×2 (09:35→23:24)
[2017-12-23] MEDS: HYDROMORPHONE HCL INJ/PF 2 MG/ML AMPULE IV PRN ×4 (09:35→21:10)
[2017-12-23] MEDS ORDERED: INFLUENZA ADLT QUAD (36MOS+) 2017-18 VAC 0.5 ML SYR IM PRN (13:07)
[2017-12-23] MEDS: ENALAPRILAT DIHYDRATE INJ/PF 2.5 MG/2 ML SDV IV PRN (14:22)
[2017-12-23] MEDS: CEFOTAXIME SODIUM 1 GM in DEXTROSE 5%-WATER 50 ML IV SCH ×2 (15:28→23:23)
[2017-12-24] MEDS: IPRATROPIUM/ALBUTEROL 0.5-2.5 MG/3 ML AMPUL NEB PRN ×2 (00:23→21:07)
[2017-12-24] MEDS: NORMAL SALINE 1000 ML 1,000 ML IV PRN ×3 (02:11→22:02)
[2017-12-24] MEDS: HYDROMORPHONE HCL INJ/PF 2 MG/ML AMPULE IV PRN ×6 (03:46→23:30)
[2017-12-24] MEDS: ENALAPRILAT DIHYDRATE INJ/PF 2.5 MG/2 ML SDV IV PRN (03:46)
[2017-12-24] MEDS: CEFOTAXIME SODIUM 1 GM in DEXTROSE 5%-WATER 50 ML IV SCH ×3 (05:34→21:58)
[2017-12-24] MEDS: FAMOTIDINE INJ/PF 20 MG/2 ML SDV IV SCH ×2 (09:35→21:58)
--- NOTE | 2017-12-24 15:32 | Physician Advisory Note ---
Physician Advisor ProgressNote .: Pursuant to the plan for [facility], I have reviewed the medical record for this patient. Physician Advisor Statement: Please consider documenting, if you agree: 1. "Hepatic Steatosis" (seen on CT) 2. "SIRS due to acute pancreatitis" Thanks! CK
--- NOTE | 2017-12-24 18:16 | PDOC PROGRESS REPORT ---
Subjective Progress Note for:: 12/24/17 Subjective:: Persistence of abdominal pain, particularly left mid and upper region. No nausea or vomiting. Remain NPO except for swab of stick for mucous dryness. No chest pain or difficulty with breathing. No fever or chills. Reason For Visit: ACUTE RECURRENT PANCREATITIS Physical Exam Vital Signs: Temp Pulse Resp BP Pulse Ox 100.6 F H 102 H 18 140/90 H 100 12/24/17 16:12 12/24/17 16:12 12/24/17 12:04 12/24/17 16:12 12/24/17 16:12 Intake & Output 12/23/17 12/24/17 12/25/17 06:59 06:59 06:59 Intake Total 1340 1160 Output Total 300 Balance 1040 1160 Weight 91.8 kg General appearance: PRESENT: mild distress - due to pain Head exam: PRESENT: atraumatic, normocephalic Eye exam: PRESENT: conjunctiva pink, EOMI, PERRLA. ABSENT: scleral icterus Mouth exam: PRESENT: dry mucosa - slightly Respiratory exam: PRESENT: clear to auscultation carroll Cardiovascular exam: PRESENT: RRR, +S1, +S2, tachycardia. ABSENT: diastolic murmur, rubs, systolic murmur Vascular exam: PRESENT: normal capillary refill. ABSENT: pallor GI/Abdominal exam: PRESENT: guarding, normal bowel sounds, tenderness. ABSENT: ascites, organolmegaly, rebound Rectal exam: PRESENT: deferred Extremities exam: PRESENT: pedal edema Musculoskeletal exam: PRESENT: normal inspection Neurological exam: PRESENT: alert, awake, oriented to person, oriented to place , oriented to time, oriented to situation, CN II-XII grossly intact. ABSENT: motor sensory deficit Psychiatric exam: PRESENT: appropriate affect, normal mood. ABSENT: homicidal ideation, suicidal ideation Skin exam: PRESENT: dry, intact, warm. ABSENT: cyanosis, rash Results Impressions: Abdomen/Pelvis CT 12/23/17 02:40 IMPRESSION: 1. Findings compatible with acute pancreatitis. No evidence of pancreatic necrosis or well-circumscribed peripancreatic fluid collection. 2. Hepatic steatosis. This exam was performed according to our departmental dose-optimization program, which includes automated exposure control, adjustment of the mA and/or kV according to patient size and/or use of iterative reconstruction technique. Assessment & Plan - Diagnosis (1) Recurrent acute pancreatitis Is this a current diagnosis for this admission?: Yes (2) Systemic inflammatory response syndrome (SIRS) associated with organ dysfunction Is this a current diagnosis for this admission?: Yes Plan: See attending physician orders. (3) HTN (hypertension) Qualifiers: Hypertension type: essential hypertension Qualified Code(s): I10 - Essential (primary) hypertension Is this a current diagnosis for this admission?: Yes (4) Mixed anxiety and depressive disorder Is this a current diagnosis for this admission?: Yes (5) Tobacco dependence Is this a current diagnosis for this admission?: Yes Plan: Start on Nicotine patch 21mg/day for nicotine withdrawal management. (6) Hepatic steatosis Is this a current diagnosis for this admission?: Yes Plan: See attending physician orders. - Time Time Spent with patient: 25-34 minutes Medications reviewed and adjusted accordingly: Yes Anticipated discharge: Home Within: Other - Inpatient Certification Based on my medical assessment, after consideration of the patient's comorbidities, presenting symptoms, or acuity I expect that the services needed warrant INPATIENT care.: Yes I certify that my determination is in accordance with my understanding of Medicare's requirements for reasonable and necessary INPATIENT services [42 CFR 412.3e].: Yes Medical Necessity: Need Close Monitoring Due to Risk of Patient Decompensation, Need For IV Fluids, Need For Continuous Telemetry Monitoring, Need for Pain Control, Need for IV Antibiotics, Risk of Complication if Not Cared For in Hospital Post Hospital Care: D/C Utilization Review Rn Documentation - Plan 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
[2017-12-25] MEDS: CEFOTAXIME SODIUM 1 GM in DEXTROSE 5%-WATER 50 ML IV SCH ×3 (05:43→21:09)
[2017-12-25] MEDS: NORMAL SALINE 1000 ML 1,000 ML IV PRN (05:43)
[2017-12-25 07:25] LABS: ABSOLUTE EOSINOPHILS # (AUTO) 0.1 10^3/uL (0.0-0.6); ABSOLUTE LYMPHOCYTES (AUTO) 0.4 10^3/uL (0.5-4.7); ABSOLUTE MONOCYTES (AUTO) 0.2 10^3/uL (0.1-1.4); ABSOLUTE NEUT (AUTO) 6.6 10^3/uL (1.7-8.2); BASOPHILS % (AUTO) 0.2 % (0-2); EOSINOPHILS % (AUTO) 1.4 % (0-6); HEMATOCRIT 24.7 % (37.9-51.0); LYMPHOCYTES % (AUTO) 5.9 % (13-45); MEAN CORPUSCULAR HEMOGLOBIN 35.9 pg (27.0-33.4); MEAN CORPUSCULAR HGB CONC 35.8 g/dL (32.0-36.0); MEAN CORPUSCULAR VOLUME 100 fl (80-97); MONOCYTES % (AUTO) 3.2 % (3-13); RED BLOOD COUNT 2.46 10^6/uL (4.35-5.55); RED CELL DISTRIBUTION WIDTH 13.8 % (11.5-14.0); SEGMENTED NEUTROPHILS % (AUTO) 89.3 % (42-78); TOTAL CELLS COUNTED % (AUTO) 100 %; WHITE BLOOD COUNT 7.4 10^3/uL (4.0-10.5)
[2017-12-25 07:41] LABS: ALANINE AMINOTRANSFERASE 46 U/L (21-72); ALBUMIN 2.4 g/dL (3.5-5.0); ALKALINE PHOSPHATASE 107 U/L (38-126); AMYLASE 38 U/L (30-110); ANION GAP 13 (5-19); ASPARTATE AMINO TRANSFERASE 97 U/L (17-59); BILIRUBIN,DIRECT 0.7 mg/dL (0.0-0.4); BILIRUBIN,TOTAL 1.3 mg/dL (0.2-1.3); BLOOD UREA NITROGEN 11 mg/dL (7-20); CARBON DIOXIDE 20 mmol/L (22-30); CHLORIDE 101 mmol/L (98-107); GLUCOSE 75 mg/dL (75-110); POTASSIUM 3.2 mmol/L (3.6-5.0); SODIUM 134.2 mmol/L (137-145); TOTAL PROTEIN 4.3 g/dL (6.3-8.2); TRIGLYCERIDES 126 mg/dL (<150)
[2017-12-25 07:57] LABS: DIRECT LDL < 30 mg/dL (<100)
[2017-12-25 07:58] LABS: CALCIUM 6.7 mg/dL (8.4-10.2)
[2017-12-25 08:16] LABS: HEMOGLOBIN 8.8 g/dL (13.5-17.0); PLATELET COUNT 46 10^3/uL (150-450)
[2017-12-25] MEDS: FAMOTIDINE INJ/PF 20 MG/2 ML SDV IV SCH ×2 (09:13→21:09)
[2017-12-25] MEDS: HYDROMORPHONE HCL INJ/PF 2 MG/ML AMPULE IV PRN ×4 (09:16→21:09)
[2017-12-25] MEDS ORDERED: CALCIUM GLUCONATE 6,666 MG in DEXTROSE 5%-WATER 500 ML IV ONE (09:30)
[2017-12-25] MEDS: IPRATROPIUM/ALBUTEROL 0.5-2.5 MG/3 ML AMPUL NEB PRN (10:03)
[2017-12-25] MEDS ORDERED: MAGNESIUM SULFATE 1 GM/D5W 100 ML IV SCH (11:00)
[2017-12-25] MEDS: POTASSI CL 20 MEQ/50 ML RIDER 20 MEQ/50 ML RTUPB IV SCH ×3 (13:16→17:24)
[2017-12-25] MEDS ORDERED: MAGNESIUM SULFATE 1 GM in D5W 100 ML IV SCH (17:30)
[2017-12-25] MEDS: MAGNESIUM SULFATE 1 GM/D5W 100 ML IV SCH ×2 (18:02→19:44)
--- NOTE | 2017-12-25 18:53 | PDOC PROGRESS REPORT ---
Subjective Progress Note for:: 12/25/17 Subjective:: Patient reported improvement in his abdominal pain. No nausea or vomiting. He remain NPO. No chest pain or difficulty with breathing. No fever or chills. Laboratory evaluation revealed significant electrolytes derangement. Reason For Visit: ACUTE RECURRENT PANCREATITIS Physical Exam Vital Signs: Temp Pulse Resp BP Pulse Ox 98.9 F 107 H 17 162/98 H 100 12/25/17 14:55 12/25/17 14:55 12/25/17 14:55 12/25/17 14:55 12/25/17 14:55 Intake & Output 12/24/17 12/25/17 12/26/17 06:59 06:59 06:59 Intake Total 1340 2820 Output Total 300 550 Balance 1040 2270 Weight 91.8 kg Physical Exam: General appearance: PRESENT: mild distress - due to pain Head exam: PRESENT: atraumatic, normocephalic Eye exam: PRESENT: conjunctiva pink, EOMI, DANIEL. ABSENT: sclera icterus Mouth exam: PRESENT: moist Respiratory exam: PRESENT: clear to auscultation carroll Cardiovascular exam: PRESENT: RRR, +S1, +S2, tachycardia. ABSENT: diastolic murmur, rubs, systolic murmur Vascular exam: PRESENT: normal capillary refill. ABSENT: pallor GI/Abdominal exam: PRESENT: normal bowel sounds, minimal tenderness to deep palpation. ABSENT: ascites, organomegaly, rebound Rectal exam: PRESENT: deferred Extremities exam: PRESENT: pedal edema Musculoskeletal exam: PRESENT: normal inspection Neurological exam: PRESENT: alert, awake, oriented to person, oriented to place , oriented to time, oriented to situation, CN II-XII grossly intact. ABSENT: motor sensory deficit Psychiatric exam: PRESENT: appropriate affect, normal mood. ABSENT: homicidal ideation, suicidal ideation Skin exam: PRESENT: dry, intact, warm. ABSENT: cyanosis, rash Results Laboratory Results: 12/25/17 06:20 12/25/17 06:20 12/25/17 12/25/17 12/25/17 06:20 06:20 06:20 WBC 7.4 RBC 2.46 L Hgb 8.8 L D Hct 24.7 L MCV 100 H MCH 35.9 H MCHC 35.8 RDW 13.8 Plt Count 46 L Seg Neutrophils % 89.3 H Lymphocytes % 5.9 L Monocytes % 3.2 Eosinophils % 1.4 Basophils % 0.2 Absolute Neutrophils 6.6 Absolute Lymphocytes 0.4 L Absolute Monocytes 0.2 Absolute Eosinophils 0.1 Absolute Basophils 0.0 Sodium 134.2 L Potassium 3.2 L Chloride 101 Carbon Dioxide 20 L Anion Gap 13 BUN 11 Creatinine 0.76 Est GFR ( Amer) > 60 Est GFR (Non-Af Amer) > 60 Glucose 75 Calcium 6.7 L* Magnesium 0.9 L* Total Bilirubin 1.3 AST 97 H ALT 46 Alkaline Phosphatase 107 Total Protein 4.3 L Albumin 2.4 L Triglycerides 126 Cholesterol 52.90 LDL Cholesterol Direct < 30 VLDL Cholesterol 25.0 HDL Cholesterol 19 L Amylase 38 Lipase 226.0 Impressions: Abdomen/Pelvis CT 12/23/17 02:40 IMPRESSION: 1. Findings compatible with acute pancreatitis. No evidence of pancreatic necrosis or well-circumscribed peripancreatic fluid collection. 2. Hepatic steatosis. This exam was performed according to our departmental dose-optimization program, which includes automated exposure control, adjustment of the mA and/or kV according to patient size and/or use of iterative reconstruction technique. Assessment & Plan - Diagnosis (1) Recurrent acute pancreatitis Is this a current diagnosis for this admission?: Yes (2) Systemic inflammatory response syndrome (SIRS) associated with organ dysfunction Is this a current diagnosis for this admission?: Yes (3) HTN (hypertension) Qualifiers: Hypertension type: essential hypertension Qualified Code(s): I10 - Essential (primary) hypertension Is this a current diagnosis for this admission?: Yes (4) Mixed anxiety and depressive disorder Is this a current diagnosis for this admission?: Yes (5) Tobacco dependence Is this a current diagnosis for this admission?: Yes (6) Hepatic steatosis Is this a current diagnosis for this admission?: Yes (7) Hypokalemia due to inadequate potassium intake Is this a current diagnosis for this admission?: Yes Plan: See attending physician orders. (8) Hypomagnesemia Is this a current diagnosis for this admission?: Yes Plan: See attending physician orders. (9) Hypocalcemia Is this a current diagnosis for this admission?: Yes Plan: See attending physician orders. - Time Time Spent with patient: 25-34 minutes Medications reviewed and adjusted accordingly: Yes Anticipated discharge: Home Within: Other - Inpatient Certification Based on my medical assessment, after consideration of the patient's comorbidities, presenting symptoms, or acuity I expect that the services needed warrant INPATIENT care.: Yes I certify that my determination is in accordance with my understanding of Medicare's requirements for reasonable and necessary INPATIENT services [42 CFR 412.3e].: Yes Medical Necessity: Need Close Monitoring Due to Risk of Patient Decompensation, Need For IV Fluids, Need For Continuous Telemetry Monitoring, Need for Pain Control, Need for IV Antibiotics, Risk of Complication if Not Cared For in Hospital Post Hospital Care: D/C Credit Administration Manager Documentation - Plan 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
[2017-12-26] MEDS: CEFOTAXIME SODIUM 1 GM in DEXTROSE 5%-WATER 50 ML IV SCH ×3 (07:00→21:23)
[2017-12-26] MEDS: FAMOTIDINE INJ/PF 20 MG/2 ML SDV IV SCH ×2 (10:20→21:23)
[2017-12-26] MEDS: NICOTINE 21 MG/24 HR PATCH.TD24 TD SCH (10:20)
[2017-12-26] MEDS: IPRATROPIUM/ALBUTEROL 0.5-2.5 MG/3 ML AMPUL NEB PRN (11:52)
--- NOTE | 2017-12-26 15:32 | PDOC PROGRESS REPORT ---
Subjective Progress Note for:: 12/26/17 Subjective:: Patient reported less abdominal pain. No nausea or vomiting. He remain NPO. No chest pain or difficulty with breathing. No fever or chills. Reason For Visit: ACUTE RECURRENT PANCREATITIS Physical Exam Vital Signs: Temp Pulse Resp BP Pulse Ox 99.9 F 84 16 146/88 H 97 12/26/17 07:33 12/26/17 11:52 12/26/17 11:52 12/26/17 07:33 12/26/17 11:52 Intake & Output 12/25/17 12/26/17 12/27/17 06:59 06:59 06:59 Intake Total 2820 2494 Output Total 550 Balance 2270 2494 Physical Exam: General appearance: PRESENT: mild distress - due to pain Head exam: PRESENT: atraumatic, normocephalic Eye exam: PRESENT: conjunctiva pink, EOMI, DANIEL. ABSENT: sclera icterus Mouth exam: PRESENT: moist Respiratory exam: PRESENT: clear to auscultation carroll Cardiovascular exam: PRESENT: RRR, +S1, +S2, tachycardia. ABSENT: diastolic murmur, rubs, systolic murmur Vascular exam: PRESENT: normal capillary refill. ABSENT: pallor GI/Abdominal exam: PRESENT: normal bowel sounds, minimal tenderness to deep palpation. ABSENT: ascites, organomegaly, rebound Rectal exam: PRESENT: deferred Extremities exam: PRESENT: pedal edema Musculoskeletal exam: PRESENT: normal inspection Neurological exam: PRESENT: alert, awake, oriented to person, oriented to place , oriented to time, oriented to situation, CN II-XII grossly intact. ABSENT: motor sensory deficit Psychiatric exam: PRESENT: appropriate affect, normal mood. ABSENT: homicidal ideation, suicidal ideation Skin exam: PRESENT: dry, intact, warm. ABSENT: cyanosis, rash Results Laboratory Results: 12/25/17 06:20 12/25/17 06:20 Impressions: Abdomen/Pelvis CT 12/23/17 02:40 IMPRESSION: 1. Findings compatible with acute pancreatitis. No evidence of pancreatic necrosis or well-circumscribed peripancreatic fluid collection. 2. Hepatic steatosis. This exam was performed according to our departmental dose-optimization program, which includes automated exposure control, adjustment of the mA and/or kV according to patient size and/or use of iterative reconstruction technique. Assessment & Plan - Diagnosis (1) Recurrent acute pancreatitis Is this a current diagnosis for this admission?: Yes (2) Systemic inflammatory response syndrome (SIRS) associated with organ dysfunction Is this a current diagnosis for this admission?: Yes (3) HTN (hypertension) Qualifiers: Hypertension type: essential hypertension Qualified Code(s): I10 - Essential (primary) hypertension Is this a current diagnosis for this admission?: Yes (4) Mixed anxiety and depressive disorder Is this a current diagnosis for this admission?: Yes (5) Tobacco dependence Is this a current diagnosis for this admission?: Yes (6) Hepatic steatosis Is this a current diagnosis for this admission?: Yes (7) Hypokalemia due to inadequate potassium intake Is this a current diagnosis for this admission?: Yes (8) Hypomagnesemia Is this a current diagnosis for this admission?: Yes (9) Hypocalcemia Is this a current diagnosis for this admission?: Yes - Time Time Spent with patient: 25-34 minutes Medications reviewed and adjusted accordingly: Yes Anticipated discharge: Home Within: Other - Inpatient Certification Based on my medical assessment, after consideration of the patient's comorbidities, presenting symptoms, or acuity I expect that the services needed warrant INPATIENT care.: Yes I certify that my determination is in accordance with my understanding of Medicare's requirements for reasonable and necessary INPATIENT services [42 CFR 412.3e].: Yes Medical Necessity: Need Close Monitoring Due to Risk of Patient Decompensation, Need For IV Fluids, Need For Continuous Telemetry Monitoring, Need for Pain Control, Need for IV Antibiotics, Risk of Complication if Not Cared For in Hospital Post Hospital Care: D/C Stereoplotter Operator Documentation - Plan Summary Plan Summary: Maintain on IV fluid, IV antibiotic and IV hydration. Star on clear liquid diet ad advance as tolerated.
[2017-12-26 16:05] LABS: ALANINE AMINOTRANSFERASE 52 U/L (21-72); ALBUMIN 2.5 g/dL (3.5-5.0); ALKALINE PHOSPHATASE 115 U/L (38-126); ANION GAP 14 (5-19); ASPARTATE AMINO TRANSFERASE 92 U/L (17-59); BILIRUBIN,DIRECT 0.8 mg/dL (0.0-0.4); BILIRUBIN,TOTAL 0.9 mg/dL (0.2-1.3); BLOOD UREA NITROGEN 9 mg/dL (7-20); CALCIUM 7.9 mg/dL (8.4-10.2); CARBON DIOXIDE 17 mmol/L (22-30); CHLORIDE 100 mmol/L (98-107); GLUCOSE 77 mg/dL (75-110); POTASSIUM 3.2 mmol/L (3.6-5.0); SODIUM 131.2 mmol/L (137-145); TOTAL PROTEIN 4.7 g/dL (6.3-8.2)
[2017-12-26] MEDS ORDERED: POTASSI CL 20 MEQ/50 ML RIDER 20 MEQ/50 ML RTUPB IV SCH (17:00)
[2017-12-26] MEDS ORDERED: MAGNESIUM SULFATE/D5W 1 GM/100 ML RTUPB IV ONE (17:00)
[2017-12-26] MEDS: HYDROMORPHONE HCL INJ/PF 2 MG/ML AMPULE IV PRN (23:03)
[2017-12-26] MEDS: POTASSI CL 20 MEQ/50 ML RIDER 20 MEQ/50 ML RTUPB IV SCH (23:11)
[2017-12-27] MEDS: POTASSI CL 20 MEQ/50 ML RIDER 20 MEQ/50 ML RTUPB IV SCH (02:46)
[2017-12-27] MEDS: HYDROMORPHONE HCL INJ/PF 2 MG/ML AMPULE IV PRN ×5 (02:54→20:21)
[2017-12-27] MEDS: NORMAL SALINE 1000 ML 1,000 ML IV PRN ×2 (04:05→15:10)
[2017-12-27] MEDS: CEFOTAXIME SODIUM 1 GM in DEXTROSE 5%-WATER 50 ML IV SCH (06:29)
[2017-12-27] MEDS: NICOTINE 21 MG/24 HR PATCH.TD24 TD SCH (10:04)
[2017-12-27] MEDS: FAMOTIDINE INJ/PF 20 MG/2 ML SDV IV SCH ×2 (10:34→20:24)
[2017-12-27] MEDS: IPRATROPIUM/ALBUTEROL 0.5-2.5 MG/3 ML AMPUL NEB PRN (16:41)
[2017-12-27] MEDS: CEFTRIAXONE SODIUM 1,000 MG in DEXTROSE 5%-WATER 100 ML IV SCH (17:33)
--- NOTE | 2017-12-27 19:20 | PDOC PROGRESS REPORT ---
Subjective Progress Note for:: 12/27/17 Subjective:: Patient admitted for the management of recurrent acute pancreatitis, he has no new complaints Reason For Visit: ACUTE RECURRENT PANCREATITIS Physical Exam Vital Signs: Temp Pulse Resp BP Pulse Ox 98.9 F 90 14 142/93 H 100 12/27/17 16:46 12/27/17 16:46 12/27/17 16:46 12/27/17 16:46 12/27/17 16:46 Intake & Output 12/26/17 12/27/17 12/28/17 06:59 06:59 06:59 Intake Total 2494 4700 3510 Balance 2494 4700 3510 General appearance: PRESENT: no acute distress, well-developed, well-nourished Head exam: PRESENT: atraumatic, normocephalic Eye exam: PRESENT: conjunctiva pink, EOMI, PERRLA Ear exam: PRESENT: normal external ear exam Mouth exam: PRESENT: moist, tongue midline Respiratory exam: PRESENT: clear to auscultation carroll Cardiovascular exam: PRESENT: RRR, +S1, +S2 Pulses: PRESENT: normal dorsalis pedis pul, +2 pedal pulses bilateral Vascular exam: PRESENT: normal capillary refill GI/Abdominal exam: PRESENT: normal bowel sounds, soft Rectal exam: PRESENT: deferred Neurological exam: PRESENT: alert, awake, oriented to person, oriented to place , oriented to time, oriented to situation, CN II-XII grossly intact Psychiatric exam: PRESENT: appropriate affect, normal mood Skin exam: PRESENT: dry, intact, warm Results Laboratory Results: 12/25/17 06:20 12/26/17 15:40 Impressions: Abdomen/Pelvis CT 12/23/17 02:40 IMPRESSION: 1. Findings compatible with acute pancreatitis. No evidence of pancreatic necrosis or well-circumscribed peripancreatic fluid collection. 2. Hepatic steatosis. This exam was performed according to our departmental dose-optimization program, which includes automated exposure control, adjustment of the mA and/or kV according to patient size and/or use of iterative reconstruction technique. Assessment & Plan - Diagnosis (1) Hypocalcemia Is this a current diagnosis for this admission?: Yes (2) Hypomagnesemia Is this a current diagnosis for this admission?: Yes (3) Systemic inflammatory response syndrome (SIRS) associated with organ dysfunction Is this a current diagnosis for this admission?: Yes (4) Alcoholic pancreatitis Qualifiers: Chronicity: acute Acute pancreatitis complication: unspecified Qualified Code(s): K85.20 - Alcohol induced acute pancreatitis without necrosis or infection (5) COPD (chronic obstructive pulmonary disease) Qualifiers: COPD type: unspecified COPD Qualified Code(s): J44.9 - Chronic obstructive pulmonary disease, unspecified Is this a current diagnosis for this admission?: Yes (6) Hepatocellular jaundice Is this a current diagnosis for this admission?: Yes - Plan Summary Plan Summary: Continue treatment
[2017-12-28] MEDS: ENALAPRILAT DIHYDRATE INJ/PF 2.5 MG/2 ML SDV IV PRN (00:03)
[2017-12-28] MEDS: HYDROMORPHONE HCL INJ/PF 2 MG/ML AMPULE IV PRN (00:22)
[2017-12-28] MEDS: FAMOTIDINE INJ/PF 20 MG/2 ML SDV IV SCH ×2 (10:12→21:33)
[2017-12-28] MEDS: NICOTINE 21 MG/24 HR PATCH.TD24 TD SCH (10:12)
[2017-12-28 11:58] LABS: ABSOLUTE EOSINOPHILS # (AUTO) 0.1 10^3/uL (0.0-0.6); ABSOLUTE LYMPHOCYTES (AUTO) 0.5 10^3/uL (0.5-4.7); ABSOLUTE MONOCYTES (AUTO) 0.7 10^3/uL (0.1-1.4); ABSOLUTE NEUT (AUTO) 4.3 10^3/uL (1.7-8.2); BASOPHILS % (AUTO) 0.2 % (0-2); EOSINOPHILS % (AUTO) 1.9 % (0-6); HEMATOCRIT 26.6 % (37.9-51.0); HEMOGLOBIN 9.5 g/dL (13.5-17.0); LYMPHOCYTES % (AUTO) 8.7 % (13-45); MEAN CORPUSCULAR HEMOGLOBIN 35.2 pg (27.0-33.4); MEAN CORPUSCULAR HGB CONC 35.8 g/dL (32.0-36.0); MEAN CORPUSCULAR VOLUME 98 fl (80-97); MONOCYTES % (AUTO) 13.2 % (3-13); TOTAL CELLS COUNTED % (AUTO) 100 %; WHITE BLOOD COUNT 5.6 10^3/uL (4.0-10.5)
[2017-12-28 12:14] LABS: ALANINE AMINOTRANSFERASE 40 U/L (21-72); ALBUMIN 2.6 g/dL (3.5-5.0); ALKALINE PHOSPHATASE 142 U/L (38-126); ANION GAP 8 (5-19); ASPARTATE AMINO TRANSFERASE 52 U/L (17-59); BILIRUBIN,DIRECT 0.5 mg/dL (0.0-0.4); BILIRUBIN,TOTAL 0.7 mg/dL (0.2-1.3); BLOOD UREA NITROGEN 4 mg/dL (7-20); CALCIUM 7.8 mg/dL (8.4-10.2); CARBON DIOXIDE 24 mmol/L (22-30); CHLORIDE 101 mmol/L (98-107); GLUCOSE 108 mg/dL (75-110); SODIUM 132.8 mmol/L (137-145); TOTAL PROTEIN 4.5 g/dL (6.3-8.2)
[2017-12-28 12:20] LABS: PLATELET COUNT 96 10^3/uL (150-450)
[2017-12-28 12:31] LABS: POTASSIUM 2.9 mmol/L (3.6-5.0)
[2017-12-28] MEDS: POTASSIUM CHLORIDE 20 MEQ/50 ML RTU IV SCH ×3 (14:33→21:33)
--- NOTE | 2017-12-28 17:27 | PDOC PROGRESS REPORT ---
Subjective Progress Note for:: 12/28/17 Subjective:: Patient was seen by the bedside, he has severe hypokalemia most likely from diarrhea, he was admitted for management of acute pancreatitis Reason For Visit: ACUTE RECURRENT PANCREATITIS Physical Exam Vital Signs: Temp Pulse Resp BP Pulse Ox 98.4 F 84 20 139/76 H 100 12/28/17 15:17 12/28/17 15:17 12/28/17 15:17 12/28/17 15:17 12/28/17 15:17 Intake & Output 12/27/17 12/28/17 12/29/17 06:59 06:59 06:59 Intake Total 4700 5360 Balance 4700 5360 Weight 98.1 kg General appearance: PRESENT: no acute distress Eye exam: PRESENT: PERRLA Respiratory exam: PRESENT: clear to auscultation carroll Cardiovascular exam: PRESENT: +S1, +S2 GI/Abdominal exam: PRESENT: soft Neurological exam: PRESENT: alert, CN II-XII grossly intact Results Laboratory Results: 12/28/17 11:34 12/28/17 11:34 12/28/17 12/28/17 11:34 11:34 WBC 5.6 RBC 2.70 L Hgb 9.5 L Hct 26.6 L MCV 98 H MCH 35.2 H MCHC 35.8 RDW 14.0 Plt Count 96 L Seg Neutrophils % 76.0 Lymphocytes % 8.7 L Monocytes % 13.2 H Eosinophils % 1.9 Basophils % 0.2 Absolute Neutrophils 4.3 Absolute Lymphocytes 0.5 Absolute Monocytes 0.7 Absolute Eosinophils 0.1 Absolute Basophils 0.0 Sodium 132.8 L Potassium 2.9 L* Chloride 101 Carbon Dioxide 24 Anion Gap 8 BUN 4 L Creatinine 0.52 Est GFR ( Amer) > 60 Est GFR (Non-Af Amer) > 60 Glucose 108 Calcium 7.8 L Total Bilirubin 0.7 AST 52 ALT 40 Alkaline Phosphatase 142 H Total Protein 4.5 L Albumin 2.6 L 12/23/17 15:18 Blood Blood Culture - Final NO GROWTH IN 5 DAYS 12/23/17 12:10 Blood Blood Culture - Final NO GROWTH IN 5 DAYS Impressions: Abdomen/Pelvis CT 12/23/17 02:40 IMPRESSION: 1. Findings compatible with acute pancreatitis. No evidence of pancreatic necrosis or well-circumscribed peripancreatic fluid collection. 2. Hepatic steatosis. This exam was performed according to our departmental dose-optimization program, which includes automated exposure control, adjustment of the mA and/or kV according to patient size and/or use of iterative reconstruction technique. Assessment & Plan - Diagnosis (1) Hypocalcemia Is this a current diagnosis for this admission?: Yes (2) Hypomagnesemia Is this a current diagnosis for this admission?: Yes (3) Systemic inflammatory response syndrome (SIRS) associated with organ dysfunction Is this a current diagnosis for this admission?: Yes (4) Alcoholic pancreatitis Qualifiers: Chronicity: acute Acute pancreatitis complication: unspecified Qualified Code(s): K85.20 - Alcohol induced acute pancreatitis without necrosis or infection Is this a current diagnosis for this admission?: Yes (5) COPD (chronic obstructive pulmonary disease) Qualifiers: COPD type: unspecified COPD Qualified Code(s): J44.9 - Chronic obstructive pulmonary disease, unspecified Is this a current diagnosis for this admission?: Yes (6) Hepatocellular jaundice Is this a current diagnosis for this admission?: Yes (7) Hypokalemia Is this a current diagnosis for this admission?: Yes Plan: Replace potassium
[2017-12-28] MEDS: CEFTRIAXONE SODIUM 1,000 MG in DEXTROSE 5%-WATER 100 ML IV SCH (17:48)
[2017-12-28] MEDS: IPRATROPIUM/ALBUTEROL 0.5-2.5 MG/3 ML AMPUL NEB PRN (18:19)
[2017-12-29] MEDS ORDERED: POTASSIUM CHLORIDE 20 MEQ/50 ML RTU IV ONE (03:30)
[2017-12-29] MEDS ORDERED: POTASSI CL 20 MEQ/50 ML RIDER 20 MEQ/50 ML RTUPB IV ONE (03:52)
[2017-12-29] MEDS: NORMAL SALINE 1000 ML 1,000 ML IV PRN (04:27)
[2017-12-29 10:16] LABS: HEMATOCRIT 25.2 % (37.9-51.0); HEMOGLOBIN 8.8 g/dL (13.5-17.0); MEAN CORPUSCULAR HEMOGLOBIN 34.8 pg (27.0-33.4); MEAN CORPUSCULAR VOLUME 99 fl (80-97); PLATELET COUNT 106 10^3/uL (150-450); RED BLOOD COUNT 2.53 10^6/uL (4.35-5.55); RED CELL DISTRIBUTION WIDTH 14.1 % (11.5-14.0)
[2017-12-29 10:42] LABS: ANION GAP 6 (5-19); BLOOD UREA NITROGEN 2 mg/dL (7-20); CALCIUM 7.9 mg/dL (8.4-10.2); CARBON DIOXIDE 25 mmol/L (22-30); CHLORIDE 106 mmol/L (98-107); GLUCOSE 145 mg/dL (75-110); LIPASE 452.7 U/L (23-300); SODIUM 137.2 mmol/L (137-145)
[2017-12-29 10:46] LABS: POTASSIUM 2.9 mmol/L (3.6-5.0)
[2017-12-29 10:57] LABS: ABSOLUTE LYMPHOCYTES# (MANUAL) 0.5 10^3/uL (0.5-4.7); ABSOLUTE MONOCYTES # (MANUAL) 0.7 10^3/uL (0.1-1.4); ABSOLUTE NEUTROPHILS# (MANUAL) 2.7 10^3/uL (1.7-8.2); BASOPHILS % (MANUAL) 0 % (0-2); EOSINOPHILS % (MANUAL) 2 % (0-6); LYMPHOCYTES % (MANUAL) 13 % (13-45); METAMYELOCYTES % (MANUAL) 2 % (0); MONOCYTES % (MANUAL) 17 % (3-13); SEGMENTED NEUTROPHILS % (MAN) 66 % (42-78); TOTAL CELLS COUNTED 100
[2017-12-29 11:01] LABS: ANISOCYTOSIS SLIGHT; PLATELET COMMENT DECREASED; TOXIC GRANULATION SLIGHT
[2017-12-29] MEDS: NICOTINE 21 MG/24 HR PATCH.TD24 TD SCH (11:31)
[2017-12-29] MEDS: FAMOTIDINE INJ/PF 20 MG/2 ML SDV IV SCH ×2 (11:31→21:01)
[2017-12-29] MEDS ORDERED: MAGNESIUM SULFATE/D5W 1 GM/100 ML RTUPB IV ONE (12:00)
[2017-12-29] MEDS: IPRATROPIUM/ALBUTEROL 0.5-2.5 MG/3 ML AMPUL NEB PRN (12:01)
[2017-12-29] MEDS: POTASSIUM CHLORIDE 20 MEQ/50 ML RTU IV SCH ×3 (13:51→21:01)
[2017-12-29] MEDS: CEFTRIAXONE SODIUM 1,000 MG in DEXTROSE 5%-WATER 100 ML IV SCH (17:20)
--- NOTE | 2017-12-29 18:41 | PDOC PROGRESS REPORT ---
Subjective Progress Note for:: 12/29/17 Subjective:: Patient denied abdominal pain to palpation but still feel some discomfort when turning to left side in bed. No nausea or vomiting. He remain on clear liquid diet presently. No chest pain or difficulty with breathing. No fever or chills. Patient reported significant diarrhea over last 2 days. Reason For Visit: ACUTE RECURRENT PANCREATITIS Physical Exam Vital Signs: Temp Pulse Resp BP Pulse Ox 98.7 F 63 17 121/78 99 12/29/17 15:28 12/29/17 15:28 12/29/17 15:28 12/29/17 15:28 12/29/17 15:28 Intake & Output 12/28/17 12/29/17 12/30/17 06:59 06:59 06:59 Intake Total 5360 7669 2429 Output Total 175 Balance 5360 7464 2429 Weight 98.1 kg Physical Exam: General appearance: PRESENT: mild distress - due to pain Head exam: PRESENT: atraumatic, normocephalic Eye exam: PRESENT: conjunctiva pink, EOMI, DANIEL. ABSENT: sclera icterus Mouth exam: PRESENT: moist Respiratory exam: PRESENT: clear to auscultation carroll Cardiovascular exam: PRESENT: RRR, +S1, +S2, tachycardia. ABSENT: diastolic murmur, rubs, systolic murmur Vascular exam: PRESENT: normal capillary refill. ABSENT: pallor GI/Abdominal exam: PRESENT: normal bowel sounds, minimal tenderness to deep palpation. ABSENT: ascites, organomegaly, rebound Rectal exam: PRESENT: deferred Extremities exam: PRESENT: pedal edema Musculoskeletal exam: PRESENT: normal inspection Neurological exam: PRESENT: alert, awake, oriented to person, oriented to place , oriented to time, oriented to situation, CN II-XII grossly intact. ABSENT: motor sensory deficit Psychiatric exam: PRESENT: appropriate affect, normal mood. ABSENT: homicidal ideation, suicidal ideation Skin exam: PRESENT: dry, intact, warm. ABSENT: cyanosis, rash Results Laboratory Results: 12/29/17 09:49 12/29/17 09:49 12/29/17 12/29/17 09:49 09:49 WBC 4.0 RBC 2.53 L Hgb 8.8 L Hct 25.2 L MCV 99 H MCH 34.8 H MCHC 35.0 RDW 14.1 H Plt Count 106 L Seg Neutrophils % Not Reportable Lymphocytes % Not Reportable Monocytes % Not Reportable Eosinophils % Not Reportable Basophils % Not Reportable Absolute Neutrophils Not Reportable Absolute Lymphocytes Not Reportable Absolute Monocytes Not Reportable Absolute Eosinophils Not Reportable Absolute Basophils Not Reportable Sodium 137.2 Potassium 2.9 L* Chloride 106 Carbon Dioxide 25 Anion Gap 6 BUN 2 L Creatinine 0.54 Est GFR ( Amer) > 60 Est GFR (Non-Af Amer) > 60 Glucose 145 H Calcium 7.9 L Magnesium 1.7 Lipase 452.7 H 12/23/17 15:18 Blood Blood Culture - Final NO GROWTH IN 5 DAYS Impressions: Abdomen/Pelvis CT 12/23/17 02:40 IMPRESSION: 1. Findings compatible with acute pancreatitis. No evidence of pancreatic necrosis or well-circumscribed peripancreatic fluid collection. 2. Hepatic steatosis. This exam was performed according to our departmental dose-optimization program, which includes automated exposure control, adjustment of the mA and/or kV according to patient size and/or use of iterative reconstruction technique. Assessment & Plan - Diagnosis (1) Recurrent acute pancreatitis Is this a current diagnosis for this admission?: Yes (2) Systemic inflammatory response syndrome (SIRS) associated with organ dysfunction Is this a current diagnosis for this admission?: Yes (3) HTN (hypertension) Qualifiers: Hypertension type: essential hypertension Qualified Code(s): I10 - Essential (primary) hypertension Is this a current diagnosis for this admission?: Yes (4) Mixed anxiety and depressive disorder Is this a current diagnosis for this admission?: Yes (5) Tobacco dependence Is this a current diagnosis for this admission?: Yes (6) Hepatic steatosis Is this a current diagnosis for this admission?: Yes (7) Hypokalemia due to inadequate potassium intake Is this a current diagnosis for this admission?: Yes (8) Hypomagnesemia Is this a current diagnosis for this admission?: Yes (9) Hypocalcemia Is this a current diagnosis for this admission?: Yes - Time Time Spent with patient: 25-34 minutes Medications reviewed and adjusted accordingly: Yes Anticipated discharge: Home Within: Other - Inpatient Certification Based on my medical assessment, after consideration of the patient's comorbidities, presenting symptoms, or acuity I expect that the services needed warrant INPATIENT care.: Yes I certify that my determination is in accordance with my understanding of Medicare's requirements for reasonable and necessary INPATIENT services [42 CFR 412.3e].: Yes Medical Necessity: Need Close Monitoring Due to Risk of Patient Decompensation, Need For Continuous Telemetry Monitoring, Need for IV Antibiotics, Risk of Complication if Not Cared For in Hospital Post Hospital Care: D/C Teller Head Documentation - Plan 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 He will receive potassium and Mag supplementation therapy. Follow up on serum potassium and mag level in AM. Obtain Lipase ad CBC with diff in am in view of his continue abdominal pain. Consider repeat CT scan of abdomen and pelvis to access for pancreatic psuedocyst in view of his continue discomfort with turning.
[2017-12-29] MEDS ORDERED: HYDROMORPHONE HCL INJ/PF 2 MG/ML AMPULE IV PRN (18:42)
[2017-12-30 05:24] LABS: MEAN CORPUSCULAR HEMOGLOBIN 34.8 pg (27.0-33.4); MEAN CORPUSCULAR HGB CONC 34.7 g/dL (32.0-36.0); MEAN CORPUSCULAR VOLUME 100 fl (80-97); PLATELET COUNT 113 10^3/uL (150-450); RED BLOOD COUNT 2.29 10^6/uL (4.35-5.55); RED CELL DISTRIBUTION WIDTH 14.2 % (11.5-14.0); WHITE BLOOD COUNT 4.1 10^3/uL (4.0-10.5)
[2017-12-30 05:41] LABS: CALCIUM 7.8 mg/dL (8.4-10.2); CARBON DIOXIDE 25 mmol/L (22-30); CHLORIDE 107 mmol/L (98-107); GLUCOSE 94 mg/dL (75-110); SODIUM 137.1 mmol/L (137-145)
[2017-12-30 05:42] LABS: ALANINE AMINOTRANSFERASE 34 U/L (21-72); ALBUMIN 2.3 g/dL (3.5-5.0); ALKALINE PHOSPHATASE 103 U/L (38-126); ANION GAP 5 (5-19); ASPARTATE AMINO TRANSFERASE 39 U/L (17-59); BILIRUBIN,DIRECT 0.4 mg/dL (0.0-0.4); BILIRUBIN,TOTAL 0.4 mg/dL (0.2-1.3); LIPASE 389.4 U/L (23-300); TOTAL PROTEIN 4.3 g/dL (6.3-8.2)
[2017-12-30 05:44] LABS: BLOOD UREA NITROGEN < 2 mg/dL (7-20)
[2017-12-30 05:47] LABS: POTASSIUM 2.8 mmol/L (3.6-5.0)
[2017-12-30 06:17] LABS: ABSOLUTE LYMPHOCYTES# (MANUAL) 0.7 10^3/uL (0.5-4.7); ABSOLUTE MONOCYTES # (MANUAL) 0.2 10^3/uL (0.1-1.4); BASOPHILS % (MANUAL) 0 % (0-2); EOSINOPHILS % (MANUAL) 4 % (0-6); LYMPHOCYTES % (MANUAL) 17 % (13-45); MONOCYTES % (MANUAL) 6 % (3-13); SEGMENTED NEUTROPHILS % (MAN) 73 % (42-78); TOTAL CELLS COUNTED 100
[2017-12-30 06:30] LABS: ANISOCYTOSIS SLIGHT
[2017-12-30 06:31] LABS: PLATELET COMMENT ADEQUATE; PLATELET LARGE PRESENT; POLYCHROMASIA SLIGHT
[2017-12-30] MEDS ORDERED: NORMAL SALINE 1000 ML 1,000 ML IV PRN (08:36)
[2017-12-30] MEDS: POTASSIUM CHLORIDE 10 MEQ TABLET.SA PO SCH ×3 (09:00→18:16)
[2017-12-30] MEDS: NICOTINE 21 MG/24 HR PATCH.TD24 TD SCH (09:05)
[2017-12-30] MEDS: FAMOTIDINE INJ/PF 20 MG/2 ML SDV IV SCH ×2 (09:06→21:27)
[2017-12-30] MEDS: IPRATROPIUM/ALBUTEROL 0.5-2.5 MG/3 ML AMPUL NEB PRN (16:24)
--- NOTE | 2017-12-30 17:41 | PDOC PROGRESS REPORT ---
Subjective Progress Note for:: 12/30/17 Subjective:: Patient reported resolution of his abdominal pain. No nausea or vomiting. Tolerating clear liquid diet. No chest pain or difficulty with breathing. No fever or chills. Patient reported loose stool without glo diarrhea. Reason For Visit: ACUTE RECURRENT PANCREATITIS Physical Exam Vital Signs: Temp Pulse Resp BP Pulse Ox 98.5 F 60 20 151/87 H 100 12/30/17 16:01 12/30/17 16:01 12/30/17 16:01 12/30/17 16:01 12/30/17 16:01 Intake & Output 12/29/17 12/30/17 12/31/17 06:59 06:59 06:59 Intake Total 7639 7039 860 Output Total 175 Balance 7464 7039 860 Physical Exam: General appearance: PRESENT: mild distress - due to pain Head exam: PRESENT: atraumatic, normocephalic Eye exam: PRESENT: conjunctiva pink, EOMI, DANIEL. ABSENT: sclera icterus Mouth exam: PRESENT: moist Respiratory exam: PRESENT: clear to auscultation carroll Cardiovascular exam: PRESENT: RRR, +S1, +S2, tachycardia. ABSENT: diastolic murmur, rubs, systolic murmur GI/Abdominal exam: PRESENT: normal bowel sounds, minimal tenderness to deep palpation. ABSENT: ascites, organomegaly, rebound Extremities exam: PRESENT: pedal edema Musculoskeletal exam: PRESENT: normal inspection Neurological exam: PRESENT: alert, awake, oriented to person, oriented to place , oriented to time, oriented to situation, CN II-XII grossly intact. ABSENT: motor sensory deficit Psychiatric exam: PRESENT: appropriate affect, normal mood. ABSENT: homicidal ideation, suicidal ideation Skin exam: PRESENT: dry, intact, warm. ABSENT: cyanosis, rash Results Laboratory Results: 12/30/17 04:45 12/30/17 04:45 12/30/17 12/30/17 04:45 04:45 WBC 4.1 RBC 2.29 L Hgb 8.0 L Hct 23.0 L MCV 100 H MCH 34.8 H MCHC 34.7 RDW 14.2 H Plt Count 113 L Seg Neutrophils % Not Reportable Lymphocytes % Not Reportable Monocytes % Not Reportable Eosinophils % Not Reportable Basophils % Not Reportable Absolute Neutrophils Not Reportable Absolute Lymphocytes Not Reportable Absolute Monocytes Not Reportable Absolute Eosinophils Not Reportable Absolute Basophils Not Reportable Sodium 137.1 Potassium 2.8 L* Chloride 107 Carbon Dioxide 25 Anion Gap 5 BUN < 2 L Creatinine 0.59 Est GFR ( Amer) > 60 Est GFR (Non-Af Amer) > 60 Glucose 94 Calcium 7.8 L Magnesium 1.7 Total Bilirubin 0.4 AST 39 ALT 34 Alkaline Phosphatase 103 Total Protein 4.3 L Albumin 2.3 L Lipase 389.4 H Impressions: Abdomen/Pelvis CT 12/23/17 02:40 IMPRESSION: 1. Findings compatible with acute pancreatitis. No evidence of pancreatic necrosis or well-circumscribed peripancreatic fluid collection. 2. Hepatic steatosis. This exam was performed according to our departmental dose-optimization program, which includes automated exposure control, adjustment of the mA and/or kV according to patient size and/or use of iterative reconstruction technique. Assessment & Plan - Diagnosis (1) Recurrent acute pancreatitis Is this a current diagnosis for this admission?: Yes (2) Systemic inflammatory response syndrome (SIRS) associated with organ dysfunction Is this a current diagnosis for this admission?: Yes (3) HTN (hypertension) Qualifiers: Hypertension type: essential hypertension Qualified Code(s): I10 - Essential (primary) hypertension Is this a current diagnosis for this admission?: Yes (4) Mixed anxiety and depressive disorder Is this a current diagnosis for this admission?: Yes (5) Tobacco dependence Is this a current diagnosis for this admission?: Yes (6) Hepatic steatosis Is this a current diagnosis for this admission?: Yes (7) Hypokalemia due to inadequate potassium intake Is this a current diagnosis for this admission?: Yes (8) Hypomagnesemia Is this a current diagnosis for this admission?: Yes (9) Hypocalcemia Is this a current diagnosis for this admission?: Yes - Time Time Spent with patient: 25-34 minutes Medications reviewed and adjusted accordingly: Yes Anticipated discharge: Home Within: within 48 hours - Inpatient Certification Based on my medical assessment, after consideration of the patient's comorbidities, presenting symptoms, or acuity I expect that the services needed warrant INPATIENT care.: Yes I certify that my determination is in accordance with my understanding of Medicare's requirements for reasonable and necessary INPATIENT services [42 CFR 412.3e].: Yes Medical Necessity: Need Close Monitoring Due to Risk of Patient Decompensation, Need For IV Fluids, Need For Continuous Telemetry Monitoring, Need for Pain Control, Need for IV Antibiotics, Risk of Complication if Not Cared For in Hospital Post Hospital Care: D/C Health Care Marketing Manager Documentation - Plan 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 Advance diet to full liquid, if tolerated and Lipase level remain stable or improve, will advance diet gradually.Possible discharge discussed with patient and he is in agreement with plan.
[2017-12-30] MEDS: TRAZODONE HCL 50 MG TABLET PO SCH (21:27)
[2017-12-30] MEDS ORDERED: (PENDING PHARMACY ID) (Trazodone Hcl [Desyrel] 300 MG) PO SCH (22:00)
--- NOTE | 2017-12-31 07:42 | PDOC PROGRESS REPORT ---
Subjective Progress Note for:: 12/31/17 Subjective:: Patient denid abdominal pain, nausea or vomiting. Tolerated full liquid diet. No chest pain or difficulty with breathing. No fever or chills. Reason For Visit: ACUTE RECURRENT PANCREATITIS Physical Exam Vital Signs: Temp Pulse Resp BP Pulse Ox 98.6 F 72 18 130/77 H 99 12/31/17 04:21 12/31/17 04:21 12/31/17 04:21 12/31/17 04:21 12/31/17 04:21 Intake & Output 12/30/17 12/31/17 01/01/18 06:59 06:59 06:59 Intake Total 7039 3683 Output Total 6 Balance 7039 3677 Weight 96.2 kg Physical Exam: General appearance: PRESENT: mild distress - due to pain Head exam: PRESENT: atraumatic, normocephalic Eye exam: PRESENT: conjunctiva pink, EOMI, DANIEL. ABSENT: sclera icterus Mouth exam: PRESENT: moist Respiratory exam: PRESENT: clear to auscultation carroll Cardiovascular exam: PRESENT: RRR, +S1, +S2, tachycardia. ABSENT: diastolic murmur, rubs, systolic murmur GI/Abdominal exam: PRESENT: normal bowel sounds, minimal tenderness to deep palpation. ABSENT: ascites, organomegaly, rebound Extremities exam: PRESENT: pedal edema Musculoskeletal exam: PRESENT: normal inspection Neurological exam: PRESENT: alert, awake, oriented to person, oriented to place , oriented to time, oriented to situation, CN II-XII grossly intact. ABSENT: motor sensory deficit Psychiatric exam: PRESENT: appropriate affect, normal mood. ABSENT: homicidal ideation, suicidal ideation Skin exam: PRESENT: dry, intact, warm. ABSENT: cyanosis, rash Results Laboratory Results: 12/30/17 04:45 12/30/17 04:45 Impressions: Abdomen/Pelvis CT 12/23/17 02:40 IMPRESSION: 1. Findings compatible with acute pancreatitis. No evidence of pancreatic necrosis or well-circumscribed peripancreatic fluid collection. 2. Hepatic steatosis. This exam was performed according to our departmental dose-optimization program, which includes automated exposure control, adjustment of the mA and/or kV according to patient size and/or use of iterative reconstruction technique. Assessment & Plan - Diagnosis (1) Recurrent acute pancreatitis Is this a current diagnosis for this admission?: Yes (2) Systemic inflammatory response syndrome (SIRS) associated with organ dysfunction Is this a current diagnosis for this admission?: Yes (3) HTN (hypertension) Qualifiers: Hypertension type: essential hypertension Qualified Code(s): I10 - Essential (primary) hypertension Is this a current diagnosis for this admission?: Yes (4) Mixed anxiety and depressive disorder Is this a current diagnosis for this admission?: Yes (5) Tobacco dependence Is this a current diagnosis for this admission?: Yes (6) Hepatic steatosis Is this a current diagnosis for this admission?: Yes (7) Hypokalemia due to inadequate potassium intake Is this a current diagnosis for this admission?: Yes (8) Hypomagnesemia Is this a current diagnosis for this admission?: Yes (9) Hypocalcemia Is this a current diagnosis for this admission?: Yes - Time Time Spent with patient: 25-34 minutes Medications reviewed and adjusted accordingly: Yes Anticipated discharge: Home Within: Other - Inpatient Certification Based on my medical assessment, after consideration of the patient's comorbidities, presenting symptoms, or acuity I expect that the services needed warrant INPATIENT care.: Yes I certify that my determination is in accordance with my understanding of Medicare's requirements for reasonable and necessary INPATIENT services [42 CFR 412.3e].: Yes Medical Necessity: Need Close Monitoring Due to Risk of Patient Decompensation, Need For IV Fluids, Need For Continuous Telemetry Monitoring, Need for Pain Control, Risk of Complication if Not Cared For in Hospital Post Hospital Care: D/C Client Coordinator Documentation - Plan Summary Plan Summary: Obtain BMP, Lipase level. Continue all other current management. Advance diet to mechanical soft.
[2017-12-31] MEDS: FAMOTIDINE INJ/PF 20 MG/2 ML SDV IV SCH ×2 (09:53→22:24)
[2017-12-31] MEDS: LOSARTAN POTASSIUM 50 MG TABLET PO SCH (09:53)
[2017-12-31] MEDS: NICOTINE 21 MG/24 HR PATCH.TD24 TD SCH (09:54)
[2017-12-31] MEDS: SERTRALINE HCL 50 MG TABLET PO SCH (09:54)
[2017-12-31 12:01] LABS: ANION GAP 5 (5-19); BLOOD UREA NITROGEN 3 mg/dL (7-20); CALCIUM 8.1 mg/dL (8.4-10.2); CARBON DIOXIDE 25 mmol/L (22-30); CHLORIDE 107 mmol/L (98-107); GLUCOSE 99 mg/dL (75-110); LIPASE 325.6 U/L (23-300); POTASSIUM 3.5 mmol/L (3.6-5.0); SODIUM 137.3 mmol/L (137-145)
[2017-12-31] MEDS: ACETAMINOPHEN 325 MG TABLET PO PRN ×2 (14:32→19:54)
[2017-12-31] MEDS: IPRATROPIUM/ALBUTEROL 0.5-2.5 MG/3 ML AMPUL NEB PRN (21:33)
[2017-12-31] MEDS: TRAZODONE HCL 50 MG TABLET PO SCH (22:24)
[2017-12-31] MEDS: NORMAL SALINE 1000 ML 1,000 ML IV PRN (22:24)
[2018-01-01 10:09] LABS: ANION GAP 9 (5-19); BLOOD UREA NITROGEN 4 mg/dL (7-20); CALCIUM 8.2 mg/dL (8.4-10.2); CARBON DIOXIDE 26 mmol/L (22-30); CHLORIDE 105 mmol/L (98-107); GLUCOSE 133 mg/dL (75-110); LIPASE 294.2 U/L (23-300); POTASSIUM 3.3 mmol/L (3.6-5.0); SODIUM 139.5 mmol/L (137-145)
[2018-01-01] MEDS: FAMOTIDINE 20 MG TABLET PO SCH ×2 (10:29→21:33)
[2018-01-01] MEDS: LOSARTAN POTASSIUM 50 MG TABLET PO SCH (10:29)
[2018-01-01] MEDS: SERTRALINE HCL 50 MG TABLET PO SCH (10:29)
[2018-01-01] MEDS: NICOTINE 21 MG/24 HR PATCH.TD24 TD SCH (10:30)
--- NOTE | 2018-01-01 17:38 | PDOC PROGRESS REPORT ---
Subjective Progress Note for:: 01/01/18 Subjective:: Patient reported right sided hip and groin pain, intermittent loss of balance and difficulty raising up due to pain. Denied any chest pain, difficulty with breathing, nausea, vomiting, or abdominal pain. No fever or chills. Reason For Visit: ACUTE RECURRENT PANCREATITIS Physical Exam Vital Signs: Temp Pulse Resp BP Pulse Ox 98.1 F 66 20 127/71 H 98 01/01/18 13:00 01/01/18 13:00 01/01/18 13:00 01/01/18 13:00 01/01/18 13:00 Intake & Output 12/31/17 01/01/18 01/02/18 06:59 06:59 06:59 Intake Total 3683 3824 Output Total 6 1765 Balance 3677 2059 Weight 98.4 kg Physical Exam: General appearance: PRESENT: mild distress - due to pain Head exam: PRESENT: atraumatic, normocephalic Eye exam: PRESENT: conjunctiva pink, EOMI, DANIEL. ABSENT: sclera icterus Mouth exam: PRESENT: moist Respiratory exam: PRESENT: clear to auscultation carroll Cardiovascular exam: PRESENT: RRR, +S1, +S2, tachycardia. ABSENT: diastolic murmur, rubs, systolic murmur GI/Abdominal exam: PRESENT: normal bowel sounds, minimal tenderness to deep palpation. ABSENT: ascites, organomegaly, rebound Extremities exam: PRESENT: pedal edema Musculoskeletal exam: PRESENT: normal inspection Neurological exam: PRESENT: alert, awake, oriented to person, oriented to place , oriented to time, oriented to situation, CN II-XII grossly intact. ABSENT: motor sensory deficit Psychiatric exam: PRESENT: appropriate affect, normal mood. ABSENT: homicidal ideation, suicidal ideation Skin exam: PRESENT: dry, intact, warm. ABSENT: cyanosis, rash Results Laboratory Results: 12/30/17 04:45 01/01/18 09:05 01/01/18 09:05 Sodium 139.5 Potassium 3.3 L Chloride 105 Carbon Dioxide 26 Anion Gap 9 BUN 4 L Creatinine 0.70 Est GFR ( Amer) > 60 Est GFR (Non-Af Amer) > 60 Glucose 133 H Calcium 8.2 L Lipase 294.2 Impressions: Abdomen/Pelvis CT 12/23/17 02:40 IMPRESSION: 1. Findings compatible with acute pancreatitis. No evidence of pancreatic necrosis or well-circumscribed peripancreatic fluid collection. 2. Hepatic steatosis. This exam was performed according to our departmental dose-optimization program, which includes automated exposure control, adjustment of the mA and/or kV according to patient size and/or use of iterative reconstruction technique. Assessment & Plan - Diagnosis (1) Recurrent acute pancreatitis Is this a current diagnosis for this admission?: Yes (2) Systemic inflammatory response syndrome (SIRS) associated with organ dysfunction Is this a current diagnosis for this admission?: Yes (3) HTN (hypertension) Qualifiers: Hypertension type: essential hypertension Qualified Code(s): I10 - Essential (primary) hypertension Is this a current diagnosis for this admission?: Yes (4) Mixed anxiety and depressive disorder Is this a current diagnosis for this admission?: Yes (5) Tobacco dependence Is this a current diagnosis for this admission?: Yes (6) Hepatic steatosis Is this a current diagnosis for this admission?: Yes (7) Hypokalemia due to inadequate potassium intake Is this a current diagnosis for this admission?: Yes (8) Hypomagnesemia Is this a current diagnosis for this admission?: Yes (9) Hypocalcemia Is this a current diagnosis for this admission?: Yes (10) Hip joint painful on movement Qualifiers: Laterality: right Qualified Code(s): M25.551 - Pain in right hip Is this a current diagnosis for this admission?: Yes Plan: Start on Ibuprofen 600mg po tid prn for pain management, provide K-PAD usage on prn basis, PT evaluation. D/C IV Pepcid. Start on Pepcid 20 mg po bid. - Time Time Spent with patient: 25-34 minutes Medications reviewed and adjusted accordingly: Yes Anticipated discharge: Home Within: Other - Inpatient Certification Based on my medical assessment, after consideration of the patient's comorbidities, presenting symptoms, or acuity I expect that the services needed warrant INPATIENT care.: Yes I certify that my determination is in accordance with my understanding of Medicare's requirements for reasonable and necessary INPATIENT services [42 CFR 412.3e].: Yes Medical Necessity: Need Close Monitoring Due to Risk of Patient Decompensation, Need For IV Fluids, Need For Continuous Telemetry Monitoring, Need for IV Antibiotics, Risk of Complication if Not Cared For in Hospital 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
[2018-01-01] MEDS: IBUPROFEN 600 MG TABLET PO PRN (18:32)
[2018-01-01] MEDS: TRAZODONE HCL 50 MG TABLET PO SCH (22:13)
[2018-01-02 06:43] LABS: ANION GAP 7 (5-19); BLOOD UREA NITROGEN 7 mg/dL (7-20); CALCIUM 8.2 mg/dL (8.4-10.2); CARBON DIOXIDE 27 mmol/L (22-30); CHLORIDE 108 mmol/L (98-107); GLUCOSE 93 mg/dL (75-110); POTASSIUM 3.4 mmol/L (3.6-5.0); SODIUM 141.7 mmol/L (137-145)
[2018-01-02] MEDS: NICOTINE 21 MG/24 HR PATCH.TD24 TD SCH (09:26)
[2018-01-02] MEDS: POTASSIUM CHLORIDE 10 MEQ TABLET.SA PO SCH ×2 (09:26→14:29)
[2018-01-02] MEDS: LOSARTAN POTASSIUM 50 MG TABLET PO SCH (09:27)
[2018-01-02] MEDS: SERTRALINE HCL 50 MG TABLET PO SCH (09:27)
[2018-01-02] MEDS: FAMOTIDINE 20 MG TABLET PO SCH ×2 (09:27→23:00)
[2018-01-02] MEDS: IPRATROPIUM/ALBUTEROL 0.5-2.5 MG/3 ML AMPUL NEB PRN (12:01)
--- NOTE | 2018-01-02 14:15 | PDOC PROGRESS REPORT ---
Subjective Progress Note for:: 01/02/18 Subjective:: Patient reported continue right hip and buttock pain with motion. Ambulate with walker assistance. No chest pain or difficulty with walking. No abdominal pain, nausea, or vomiting. Reason For Visit: ACUTE RECURRENT PANCREATITIS Physical Exam Vital Signs: Temp Pulse Resp BP Pulse Ox 98.0 F 67 18 149/92 H 96 01/02/18 12:15 01/02/18 12:15 01/02/18 12:01 01/02/18 12:15 01/02/18 12:15 Intake & Output 01/01/18 01/02/18 01/03/18 06:59 06:59 06:59 Intake Total 3824 6110 Output Total 1765 1020 Balance 2059 5090 Weight 98.4 kg 98.4 kg Physical Exam: General appearance: PRESENT: mild distress - due to pain Head exam: PRESENT: atraumatic, normocephalic Eye exam: PRESENT: conjunctiva pink, EOMI, DANIEL. ABSENT: sclera icterus Mouth exam: PRESENT: moist Respiratory exam: PRESENT: clear to auscultation carroll Cardiovascular exam: PRESENT: RRR, +S1, +S2, tachycardia. ABSENT: diastolic murmur, rubs, systolic murmur GI/Abdominal exam: PRESENT: normal bowel sounds, minimal tenderness to deep palpation. ABSENT: ascites, organomegaly, rebound Extremities exam: PRESENT: pedal edema Musculoskeletal exam: PRESENT: normal inspection tenderness with elevation and rotation across hip joint ABSENT: Swelling Neurological exam: PRESENT: alert, awake, oriented to person, oriented to place , oriented to time, oriented to situation, CN II-XII grossly intact. ABSENT: motor sensory deficit Psychiatric exam: PRESENT: appropriate affect, normal mood. ABSENT: homicidal ideation, suicidal ideation Skin exam: PRESENT: dry, intact, warm. ABSENT: cyanosis, rash Results Laboratory Results: 12/30/17 04:45 01/02/18 06:00 01/02/18 06:00 Sodium 141.7 Potassium 3.4 L Chloride 108 H Carbon Dioxide 27 Anion Gap 7 BUN 7 Creatinine 0.65 Est GFR ( Amer) > 60 Est GFR (Non-Af Amer) > 60 Glucose 93 Calcium 8.2 L Impressions: Abdomen/Pelvis CT 12/23/17 02:40 IMPRESSION: 1. Findings compatible with acute pancreatitis. No evidence of pancreatic necrosis or well-circumscribed peripancreatic fluid collection. 2. Hepatic steatosis. This exam was performed according to our departmental dose-optimization program, which includes automated exposure control, adjustment of the mA and/or kV according to patient size and/or use of iterative reconstruction technique. Assessment & Plan - Diagnosis (1) Recurrent acute pancreatitis Is this a current diagnosis for this admission?: Yes (2) Systemic inflammatory response syndrome (SIRS) associated with organ dysfunction Is this a current diagnosis for this admission?: Yes (3) HTN (hypertension) Qualifiers: Hypertension type: essential hypertension Qualified Code(s): I10 - Essential (primary) hypertension Is this a current diagnosis for this admission?: Yes (4) Mixed anxiety and depressive disorder Is this a current diagnosis for this admission?: Yes (5) Tobacco dependence Is this a current diagnosis for this admission?: Yes (6) Hepatic steatosis Is this a current diagnosis for this admission?: Yes (7) Hypokalemia due to inadequate potassium intake Is this a current diagnosis for this admission?: Yes (8) Hypomagnesemia Is this a current diagnosis for this admission?: Yes (9) Hypocalcemia Is this a current diagnosis for this admission?: Yes (10) Hip joint painful on movement Qualifiers: Laterality: right Qualified Code(s): M25.551 - Pain in right hip Is this a current diagnosis for this admission?: Yes - Time Time Spent with patient: 25-34 minutes Medications reviewed and adjusted accordingly: Yes Anticipated discharge: Home Within: within 24 hours - Inpatient Certification Based on my medical assessment, after consideration of the patient's comorbidities, presenting symptoms, or acuity I expect that the services needed warrant INPATIENT care.: Yes I certify that my determination is in accordance with my understanding of Medicare's requirements for reasonable and necessary INPATIENT services [42 CFR 412.3e].: Yes Medical Necessity: Need Close Monitoring Due to Risk of Patient Decompensation, Need For IV Fluids, Need for Pain Control, Risk of Complication if Not Cared For in Hospital 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 Maintain on all other current medication management.
[2018-01-02] MEDS: TRAZODONE HCL 50 MG TABLET PO SCH (22:59)
[2018-01-02] MEDS: IBUPROFEN 600 MG TABLET PO PRN (23:00)
[2018-01-03 06:43] LABS: ABSOLUTE EOSINOPHILS # (AUTO) 0.1 10^3/uL (0.0-0.6); ABSOLUTE LYMPHOCYTES (AUTO) 0.8 10^3/uL (0.5-4.7); ABSOLUTE MONOCYTES (AUTO) 0.4 10^3/uL (0.1-1.4); ABSOLUTE NEUT (AUTO) 3.3 10^3/uL (1.7-8.2); BASOPHILS % (AUTO) 0.4 % (0-2); EOSINOPHILS % (AUTO) 1.6 % (0-6); HEMATOCRIT 22.4 % (37.9-51.0); MEAN CORPUSCULAR HEMOGLOBIN 34.2 pg (27.0-33.4); MEAN CORPUSCULAR HGB CONC 33.8 g/dL (32.0-36.0); MEAN CORPUSCULAR VOLUME 101 fl (80-97); MONOCYTES % (AUTO) 8.3 % (3-13); PLATELET COUNT 174 10^3/uL (150-450); RED BLOOD COUNT 2.22 10^6/uL (4.35-5.55); RED CELL DISTRIBUTION WIDTH 14.1 % (11.5-14.0); SEGMENTED NEUTROPHILS % (AUTO) 71.7 % (42-78); TOTAL CELLS COUNTED % (AUTO) 100 %; WHITE BLOOD COUNT 4.6 10^3/uL (4.0-10.5)
[2018-01-03 06:46] LABS: ANION GAP 7 (5-19); BLOOD UREA NITROGEN 10 mg/dL (7-20); CALCIUM 8.4 mg/dL (8.4-10.2); CARBON DIOXIDE 25 mmol/L (22-30); CHLORIDE 107 mmol/L (98-107); GLUCOSE 83 mg/dL (75-110); SODIUM 138.6 mmol/L (137-145)
[2018-01-03 06:51] LABS: HEMOGLOBIN 7.6 g/dL (13.5-17.0)
[2018-01-03] MEDS: IPRATROPIUM/ALBUTEROL 0.5-2.5 MG/3 ML AMPUL NEB PRN (11:42)
[2018-01-03] MEDS: LOSARTAN POTASSIUM 50 MG TABLET PO SCH (11:50)
[2018-01-03] MEDS: NICOTINE 21 MG/24 HR PATCH.TD24 TD SCH (11:51)
[2018-01-03] MEDS: SERTRALINE HCL 50 MG TABLET PO SCH (11:51)
[2018-01-03] MEDS: FAMOTIDINE 20 MG TABLET PO SCH ×2 (11:51→21:12)
--- NOTE | 2018-01-03 12:48 | PDOC PROGRESS REPORT ---
Subjective Progress Note for:: 01/03/18 Subjective:: Patient reported continue right hip and buttock pain with motion. Ambulate with walker assistance. No chest pain or difficulty with walking. No abdominal pain, nausea, or vomiting. Reason For Visit: ACUTE RECURRENT PANCREATITIS Physical Exam Vital Signs: Temp Pulse Resp BP Pulse Ox 98.2 F 65 18 134/82 H 98 01/03/18 12:00 01/03/18 12:00 01/03/18 12:00 01/03/18 12:00 01/03/18 12:00 Intake & Output 01/02/18 01/03/18 01/04/18 06:59 06:59 06:59 Intake Total 6110 5043 Output Total 1020 1700 Balance 5090 3343 Weight 98.4 kg Physical Exam: General appearance: PRESENT: mild distress - due to pain Head exam: PRESENT: atraumatic, normocephalic Eye exam: PRESENT: conjunctiva pink, EOMI, DANIEL. ABSENT: sclera icterus Mouth exam: PRESENT: moist Respiratory exam: PRESENT: clear to auscultation carroll Cardiovascular exam: PRESENT: RRR, +S1, +S2, tachycardia. ABSENT: diastolic murmur, rubs, systolic murmur GI/Abdominal exam: PRESENT: normal bowel sounds. ABSENT: ascites, organomegaly , tenderness, rebound Extremities exam: PRESENT: pedal edema Musculoskeletal exam: PRESENT: normal inspection, improved tenderness with elevation and rotation across hip joint ABSENT: Swelling Neurological exam: PRESENT: alert, awake, oriented to person, oriented to place , oriented to time, oriented to situation, CN II-XII grossly intact. ABSENT: motor sensory deficit Psychiatric exam: PRESENT: appropriate affect, normal mood. ABSENT: homicidal ideation, suicidal ideation Skin exam: PRESENT: dry, intact, warm. ABSENT: cyanosis, rash Results Laboratory Results: 01/03/18 05:04 01/03/18 05:04 01/03/18 01/03/18 01/03/18 05:04 05:04 07:45 WBC 4.6 RBC 2.22 L Hgb 7.6 L Hct 22.4 L MCV 101 H MCH 34.2 H MCHC 33.8 RDW 14.1 H Plt Count 174 Seg Neutrophils % 71.7 Lymphocytes % 18.0 Monocytes % 8.3 Eosinophils % 1.6 Basophils % 0.4 Absolute Neutrophils 3.3 Absolute Lymphocytes 0.8 Absolute Monocytes 0.4 Absolute Eosinophils 0.1 Absolute Basophils 0.0 Sodium 138.6 Potassium 4.0 Chloride 107 Carbon Dioxide 25 Anion Gap 7 BUN 10 Creatinine 0.69 Est GFR ( Amer) > 60 Est GFR (Non-Af Amer) > 60 Glucose 83 Calcium 8.4 Blood Type A POSITIVE Antibody Screen NEGATIVE Impressions: Abdomen/Pelvis CT 12/23/17 02:40 IMPRESSION: 1. Findings compatible with acute pancreatitis. No evidence of pancreatic necrosis or well-circumscribed peripancreatic fluid collection. 2. Hepatic steatosis. This exam was performed according to our departmental dose-optimization program, which includes automated exposure control, adjustment of the mA and/or kV according to patient size and/or use of iterative reconstruction technique. Assessment & Plan - Diagnosis (1) Recurrent acute pancreatitis Is this a current diagnosis for this admission?: Yes (2) Systemic inflammatory response syndrome (SIRS) associated with organ dysfunction Is this a current diagnosis for this admission?: Yes (3) HTN (hypertension) Qualifiers: Hypertension type: essential hypertension Qualified Code(s): I10 - Essential (primary) hypertension Is this a current diagnosis for this admission?: Yes (4) Mixed anxiety and depressive disorder Is this a current diagnosis for this admission?: Yes (5) Tobacco dependence Is this a current diagnosis for this admission?: Yes (6) Hepatic steatosis Is this a current diagnosis for this admission?: Yes (7) Hypokalemia due to inadequate potassium intake Is this a current diagnosis for this admission?: Yes (8) Hypomagnesemia Is this a current diagnosis for this admission?: Yes (9) Hypocalcemia Is this a current diagnosis for this admission?: Yes (10) Hip joint painful on movement Qualifiers: Laterality: right Qualified Code(s): M25.551 - Pain in right hip Is this a current diagnosis for this admission?: Yes (11) Anemia due to chronic blood loss Is this a current diagnosis for this admission?: Yes Plan: Probable due to gastric stress ulcers. Add Prevacid 30 mg p.o daily to gastric mucosa protection therapy. D/C Ibuprofen. - Time Time Spent with patient: 25-34 minutes Medications reviewed and adjusted accordingly: Yes Anticipated discharge: Home Within: Other - Inpatient Certification Based on my medical assessment, after consideration of the patient's comorbidities, presenting symptoms, or acuity I expect that the services needed warrant INPATIENT care.: Yes I certify that my determination is in accordance with my understanding of Medicare's requirements for reasonable and necessary INPATIENT services [42 CFR 412.3e].: Yes Medical Necessity: Need Close Monitoring Due to Risk of Patient Decompensation, Need For IV Fluids, Need For Continuous Telemetry Monitoring, Risk of Complication if Not Cared For in Hospital 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 Obtain post transfusion cbc. Start on Prevacid 30 mg po daily. D/C Ibuprofen usage for pain management.
[2018-01-03] MEDS ORDERED: LANSOPRAZOLE 30 MG TAB.RAP.DR PO ONE (13:30)
[2018-01-03] MEDS: ACETAMINOPHEN 325 MG TABLET PO PRN (19:29)
[2018-01-03 20:21] LABS: ABSOLUTE LYMPHOCYTES (AUTO) 0.4 10^3/uL (0.5-4.7); ABSOLUTE MONOCYTES (AUTO) 0.3 10^3/uL (0.1-1.4); BASOPHILS % (AUTO) 0.5 % (0-2); HEMATOCRIT 28.3 % (37.9-51.0); HEMOGLOBIN 9.6 g/dL (13.5-17.0); LYMPHOCYTES % (AUTO) 9.1 % (13-45); MEAN CORPUSCULAR HEMOGLOBIN 32.6 pg (27.0-33.4); MEAN CORPUSCULAR HGB CONC 33.9 g/dL (32.0-36.0); MONOCYTES % (AUTO) 7.1 % (3-13); PLATELET COUNT 202 10^3/uL (150-450); RED BLOOD COUNT 2.95 10^6/uL (4.35-5.55); RED CELL DISTRIBUTION WIDTH 16.6 % (11.5-14.0); SEGMENTED NEUTROPHILS % (AUTO) 82.3 % (42-78); TOTAL CELLS COUNTED % (AUTO) 100 %; WHITE BLOOD COUNT 4.8 10^3/uL (4.0-10.5)
[2018-01-03 20:25] LABS: MEAN CORPUSCULAR VOLUME 96 fl (80-97)
[2018-01-03] MEDS: TRAZODONE HCL 50 MG TABLET PO SCH (22:35)
[2018-01-03] MEDS: NORMAL SALINE 1000 ML 1,000 ML IV PRN (22:38)
[2018-01-04] MEDS: LANSOPRAZOLE 30 MG TAB.RAP.DR PO SCH (05:28)
[2018-01-04] MEDS: LOSARTAN POTASSIUM 50 MG TABLET PO SCH (10:12)
[2018-01-04] MEDS: SERTRALINE HCL 50 MG TABLET PO SCH (10:13)
[2018-01-04] MEDS: FAMOTIDINE 20 MG TABLET PO SCH ×2 (10:13→22:17)
[2018-01-04] MEDS: NICOTINE 21 MG/24 HR PATCH.TD24 TD SCH (10:14)
--- NOTE | 2018-01-04 16:15 | PDOC PROGRESS REPORT ---
Subjective Progress Note for:: 01/04/18 Subjective:: No chest pain or difficulty with walking. No abdominal pain, nausea, or vomiting. No fever or chills. Reason For Visit: ACUTE RECURRENT PANCREATITIS Physical Exam Vital Signs: Temp Pulse Resp BP Pulse Ox 98.3 F 61 18 117/72 97 01/04/18 11:01 01/04/18 12:15 01/04/18 12:15 01/04/18 11:01 01/04/18 12:15 Intake & Output 01/03/18 01/04/18 01/05/18 06:59 06:59 06:59 Intake Total 5043 4355 Output Total 1700 1275 Balance 3343 3080 Weight 98.5 kg Physical Exam: General appearance: PRESENT: mild distress - due to pain Head exam: PRESENT: atraumatic, normocephalic Eye exam: PRESENT: conjunctiva pink, EOMI, DANIEL. ABSENT: sclera icterus Mouth exam: PRESENT: moist Respiratory exam: PRESENT: clear to auscultation carroll Cardiovascular exam: PRESENT: RRR, +S1, +S2, tachycardia. ABSENT: diastolic murmur, rubs, systolic murmur GI/Abdominal exam: PRESENT: normal bowel sounds. ABSENT: ascites, organomegaly , tenderness, rebound Extremities exam: PRESENT: pedal edema Musculoskeletal exam: PRESENT: normal inspection ABSENT: Swelling, tenderness Neurological exam: PRESENT: alert, awake, oriented to person, oriented to place , oriented to time, oriented to situation, CN II-XII grossly intact. ABSENT: motor sensory deficit Psychiatric exam: PRESENT: appropriate affect, normal mood. ABSENT: homicidal ideation, suicidal ideation Skin exam: PRESENT: dry, intact, warm. ABSENT: cyanosis, rash Results Laboratory Results: 01/03/18 19:50 01/03/18 05:04 01/03/18 19:50 WBC 4.8 RBC 2.95 L Hgb 9.6 L Hct 28.3 L MCV 96 D MCH 32.6 MCHC 33.9 RDW 16.6 H Plt Count 202 Seg Neutrophils % 82.3 H Lymphocytes % 9.1 L Monocytes % 7.1 Eosinophils % 1.0 Basophils % 0.5 Absolute Neutrophils 4.0 Absolute Lymphocytes 0.4 L Absolute Monocytes 0.3 Absolute Eosinophils 0.0 Absolute Basophils 0.0 Impressions: Abdomen/Pelvis CT 12/23/17 02:40 IMPRESSION: 1. Findings compatible with acute pancreatitis. No evidence of pancreatic necrosis or well-circumscribed peripancreatic fluid collection. 2. Hepatic steatosis. This exam was performed according to our departmental dose-optimization program, which includes automated exposure control, adjustment of the mA and/or kV according to patient size and/or use of iterative reconstruction technique. Assessment & Plan - Diagnosis (1) Recurrent acute pancreatitis Is this a current diagnosis for this admission?: Yes (2) Systemic inflammatory response syndrome (SIRS) associated with organ dysfunction Is this a current diagnosis for this admission?: Yes (3) HTN (hypertension) Qualifiers: Hypertension type: essential hypertension Qualified Code(s): I10 - Essential (primary) hypertension Is this a current diagnosis for this admission?: Yes (4) Mixed anxiety and depressive disorder Is this a current diagnosis for this admission?: Yes (5) Tobacco dependence Is this a current diagnosis for this admission?: Yes (6) Hepatic steatosis Is this a current diagnosis for this admission?: Yes (7) Hypokalemia due to inadequate potassium intake Is this a current diagnosis for this admission?: Yes (8) Hypomagnesemia Is this a current diagnosis for this admission?: Yes (9) Hypocalcemia Is this a current diagnosis for this admission?: Yes (10) Hip joint painful on movement Qualifiers: Laterality: right Qualified Code(s): M25.551 - Pain in right hip Is this a current diagnosis for this admission?: Yes (11) Anemia due to chronic blood loss Is this a current diagnosis for this admission?: Yes - Time Time Spent with patient: 25-34 minutes Medications reviewed and adjusted accordingly: Yes Anticipated discharge: Home Within: Other - Inpatient Certification Based on my medical assessment, after consideration of the patient's comorbidities, presenting symptoms, or acuity I expect that the services needed warrant INPATIENT care.: Yes I certify that my determination is in accordance with my understanding of Medicare's requirements for reasonable and necessary INPATIENT services [42 CFR 412.3e].: Yes Medical Necessity: Need Close Monitoring Due to Risk of Patient Decompensation, Need For IV Fluids, Need For Continuous Telemetry Monitoring, Risk of Complication if Not Cared For in Hospital Post Hospital Care: D/C Evp Operations Documentation - Plan Summary Plan Summary: Continue all current medication management. Obtain CBC in AM. Emphasized avoidance of NSAID.
[2018-01-04] MEDS: IPRATROPIUM/ALBUTEROL 0.5-2.5 MG/3 ML AMPUL NEB PRN (16:45)
[2018-01-04] MEDS: ACETAMINOPHEN 325 MG TABLET PO PRN (19:51)
[2018-01-04] MEDS: TRAZODONE HCL 50 MG TABLET PO SCH (22:17)
[2018-01-05] MEDS: LANSOPRAZOLE 30 MG TAB.RAP.DR PO SCH (06:03)
[2018-01-05] MEDS: NICOTINE 21 MG/24 HR PATCH.TD24 TD SCH (09:50)
[2018-01-05] MEDS: SERTRALINE HCL 50 MG TABLET PO SCH (09:51)
[2018-01-05] MEDS: FAMOTIDINE 20 MG TABLET PO SCH (09:51)
[2018-01-05] MEDS: LOSARTAN POTASSIUM 50 MG TABLET PO SCH (09:52)
[2018-01-05 15:52] VITALS: BP 134/81
--- NOTE | 2018-01-05 17:31 | PDOC DISCHARGE SUMMARY ---
General - Admit/Disc Date/PCP Admission Date/Primary Care Provider: 12/23/17 03:37 ROXIE HOOD Discharge Date: 01/05/18 - Discharge Diagnosis (1) Recurrent acute pancreatitis Is this a current diagnosis for this admission?: Yes (2) Systemic inflammatory response syndrome (SIRS) associated with organ dysfunction Is this a current diagnosis for this admission?: Yes (3) HTN (hypertension) Is this a current diagnosis for this admission?: Yes (4) Mixed anxiety and depressive disorder Is this a current diagnosis for this admission?: Yes (5) Tobacco dependence Is this a current diagnosis for this admission?: Yes (6) Hepatic steatosis Is this a current diagnosis for this admission?: Yes (7) Hypokalemia due to inadequate potassium intake Is this a current diagnosis for this admission?: Yes (8) Hypomagnesemia Is this a current diagnosis for this admission?: Yes (9) Hypocalcemia Is this a current diagnosis for this admission?: Yes (10) Hip joint painful on movement Is this a current diagnosis for this admission?: Yes (11) Anemia due to chronic blood loss Is this a current diagnosis for this admission?: Yes - Additional Information Discharge Diet: Cardiac Discharge Activity: Activity As Tolerated Prescriptions: Lansoprazole [Prevacid] 30 mg PO BID #60 capsule. Nicotine [Nicoderm 21 mg/24 Hr Transderm Patch] 1 each TD DAILY #30 patch.[email or web address] Home Medications: Losartan Potassium [Cozaar 100 mg Tablet] 100 mg PO DAILY 05/27/17 Sertraline HCl [Zoloft] 100 mg PO DAILY 05/27/17 Trazodone HCl [Desyrel] 300 mg PO QHS 05/27/17 Albuterol Sulfate [Proair Respiclick] 2 puff IH Q6HP PRN 12/23/17 Ipratropium/Albuterol Sulfate [Duoneb 3 ml Ampul] 1 vial NEB Q6HP PRN 12/23/17 Ondansetron HCl [Zofran 4 mg Tablet] 4 mg PO QIDP PRN 12/23/17 Lansoprazole [Prevacid] 30 mg PO BID #60 capsule. 01/05/18 Nicotine [Nicoderm 21 mg/24 Hr Transderm Patch] 1 each TD DAILY #30 patch.td24 01/05/18 History of Present Illness Patient complains of: Abdominal pain, Nausea, Vomiting, Diarrhea History of Present Illness: ESTRELLA GAONA is a 52 year old male known to my practice who presented to the ED via EMS service with complain of abdominal pain, nausea, vomiting and diarrhea. Patient reported onset of abdominal pain about 2 days prior to presentation but severely worsen on the day of his presentation. He described pain as very sharp and localized to mid abdomen and left upper region. He denied hematemesis, tarry or bloody stool. He denied alcohol consumption in any form. Patient denied any definite fever or chills. No dizziness, headache, sinus congestion, body aches and pain, no dysuria or hematuria. He denied radiation of pain into his back or any associated flank pain. Continue to smoke about 1/2 PPD daily. Hospital Course Hospital Course: Patient responded to NPO status with downward trend of his serum lipase level and severity of abdominal pain. His nausea, vomiting and diarrhea did improved. He was eventually restarted on oral feeding. There was concern for possible associated infectious process due to his significant leukocytosis upon presentation for which he had adequate antibiotic coverage. His blood culture was reported no growth after 5 days of incubation. His hospitalization was further complicated with electrolyte derangement and anemia. His stool occult blood was reported positive. His anemia was attributed to combination of dilution and possible stress induced gastric ulcer related to his acute illness from pancreatitis. He was transfused 2 units of PRBC during this hospitalization due to his anemia. He was started and discharged home on Nicotine patch to assist with smoking cessation. He will follow up in the office as instructed upon discharge. Physical Exam Vital Signs: Temp Pulse Resp BP Pulse Ox 97.9 F 81 19 134/81 H 100 01/05/18 15:52 01/05/18 15:52 01/05/18 15:52 01/05/18 15:52 01/05/18 15:52 Intake & Output 01/04/18 01/05/18 01/06/18 06:59 06:59 06:59 Intake Total 4355 5530 Output Total 1275 1075 Balance 3080 4455 Weight 98.5 kg 93.9 kg Physical Exam: General appearance: PRESENT: mild distress - due to pain Head exam: PRESENT: atraumatic, normocephalic Eye exam: PRESENT: conjunctiva pink, EOMI, DANIEL. ABSENT: sclera icterus Mouth exam: PRESENT: moist Respiratory exam: PRESENT: clear to auscultation carroll Cardiovascular exam: PRESENT: RRR, +S1, +S2, tachycardia. ABSENT: diastolic murmur, rubs, systolic murmur GI/Abdominal exam: PRESENT: normal bowel sounds. ABSENT: ascites, organomegaly , tenderness, rebound Extremities exam: PRESENT: pedal edema Musculoskeletal exam: PRESENT: normal inspection ABSENT: Swelling, tenderness Neurological exam: PRESENT: alert, awake, oriented to person, oriented to place , oriented to time, oriented to situation, CN II-XII grossly intact. ABSENT: motor sensory deficit Psychiatric exam: PRESENT: appropriate affect, normal mood. ABSENT: homicidal ideation, suicidal ideation Skin exam: PRESENT: dry, intact, warm. ABSENT: cyanosis, rash Results Laboratory Results: 01/03/18 19:50 01/03/18 05:04 Impressions: Abdomen/Pelvis CT 12/23/17 02:40 IMPRESSION: 1. Findings compatible with acute pancreatitis. No evidence of pancreatic necrosis or well-circumscribed peripancreatic fluid collection. 2. Hepatic steatosis. This exam was performed according to our departmental dose-optimization program, which includes automated exposure control, adjustment of the mA and/or kV according to patient size and/or use of iterative reconstruction technique. Qualifiers - * PATEINT BEING DISCHARGED WITH ANY OF THE FOLLOWING DIAGNOSIS?: No Plan Discharge Plan: D/C home today with office follow up appointment as instructed upon discharge. Time Spent: Less than 30 Minutes
== END 2018-01-05 18:43 | disposition home or self-care (01) | DRG 438 ==
LOC: ER 00:27 → EH 03:37 → 4S 12:29
PROVIDERS: ADMIT Internal Medicine Geriatric Medicine; ATTEND Internal Medicine Geriatric Medicine
PROC: 30233N1 Transfusion of Nonautologous Red Blood Cells into Peripheral Vein, Percutaneous Approach (ICD-10-PCS; principal; 2018-01-03)
DX: K85.90 Acute pancreatitis without necrosis or infection, unspecified (principal); R65.11 Systemic inflammatory response syndrome (SIRS) of non-infectious origin with acute organ dysfunction; R17 Unspecified jaundice; K86.1 Other chronic pancreatitis; E87.6 Hypokalemia; E83.42 Hypomagnesemia; E83.51 Hypocalcemia; D50.0 Iron deficiency anemia secondary to blood loss (chronic); I10 Essential (primary) hypertension; J44.9 Chronic obstructive pulmonary disease, unspecified; K25.9 Gastric ulcer, unspecified as acute or chronic, without hemorrhage or perforation; F41.8 Other specified anxiety disorders; F17.210 Nicotine dependence, cigarettes, uncomplicated; M25.551 Pain in right hip
CPT/HCPCS: 36415; 36430; 74177; 80048; 80053; 80061; 82150; 82272; 82962; 83690; 83735; 85025; 86850; 86900; 86901; 86920; 87040; 94640; 94799; 96361; 96374; 99291; G8978-GP; G8979-GP; J0610; J0696; J0698; J1170; J3475; J3480; J3490; J7030; J7060; J7620; P9016; S0028; S0164

== ENCOUNTER 2018-01-22 22:34 | Inpatient (IN) | payer MEDICARE ==
[2018-01-23] MEDS ORDERED: ONDANSETRON HCL INJ/PF 4 MG/2 ML SDV IV ONE (01:10)
[2018-01-23] MEDS ORDERED: FENTANYL CITRATE INJ/PF 100 MCG/2 ML AMPUL IV ONE ×3 (01:10→05:47)
--- NOTE | 2018-01-23 01:12 | ER Document Report ---
ED GI/ - General Chief Complaint: Abdominal Pain Stated Complaint: ABDOMINAL PAIN,DIZZY Time Seen by Provider: 01/23/18 00:58 Notes: Patient is a 52-year-old male comes emergency department for chief complaint of upper abdominal pain, he states symptoms have been worsening for the past couple of days and now he is feeling lightheaded when he stands up. He also states that he has not been able to eat today except for a cracker which he then vomited. He is drinking fluids even though he cannot eat. He has a history of chronic pancreatitis, stop drinking alcohol 3 years ago, was recently admitted to the hospital for 16 days for pancreatitis. He states that he had labs drawn by his primary care provider today and then he was contacted later in the day and told to come to the emergency department because of abnormal abnormalities. He has had an appendectomy, denies any other surgeries. TRAVEL OUTSIDE OF THE [place] IN LAST 30 DAYS: No - Related Data Allergies/Adverse Reactions: hydrocodone [From Lortab] Allergy (Verified 01/23/18 04:58) hydroxyzine Allergy (Verified 01/23/18 04:58) zolpidem [From Ambien] Allergy (Verified 01/23/18 04:58) Past Medical History - General Information source: Patient - Social History Smoking Status: Current Every Day Smoker Smoking Education Provided: Yes - <3 min Frequency of alcohol use: Former heavy drinker Lives with: Alone Family History: Reviewed & Not Pertinent - Past Medical History Cardiac Medical History: Reports: Hx Hypertension Pulmonary Medical History: Reports: Hx COPD Renal/ Medical History: Denies: Hx Peritoneal Dialysis Psychiatric Medical History: Reports: Hx Depression Past Surgical History: Reports: Hx Appendectomy, Hx Tonsillectomy - Immunizations Hx Diphtheria, Pertussis, Tetanus Vaccination: No Hx Pneumococcal Vaccination: 11/17/10 Review of Systems - Review of Systems Constitutional: No symptoms reported EENT: No symptoms reported Cardiovascular: No symptoms reported Respiratory: No symptoms reported Gastrointestinal: See HPI Genitourinary: No symptoms reported Male Genitourinary: No symptoms reported Musculoskeletal: No symptoms reported Skin: No symptoms reported Hematologic/Lymphatic: No symptoms reported Neurological/Psychological: No symptoms reported Physical Exam - Vital signs Vitals: Temp Pulse Resp BP Pulse Ox 98.6 F 116 H 18 118/80 98 01/22/18 23:26 01/22/18 23:26 01/22/18 23:26 01/22/18 23:26 01/22/18 23:26 Interpretation: Normal - General General appearance: Appears well In distress: None - HEENT Head: Normocephalic, Atraumatic Eyes: Normal Extraocular movements intact: Yes Eyelashes: Normal Pupils: PERRL Nasal: Normal Mouth/Lips: Normal Mucous membranes: Normal Pharynx: Normal Neck: Normal - Respiratory Respiratory status: No respiratory distress Chest status: Nontender Breath sounds: Normal. No: Decreased air movement, Wheezing Chest palpation: Normal - Cardiovascular Rhythm: Regular, Tachycardia Heart sounds: Normal auscultation, S1 appreciated, S2 appreciated Murmur: No - Abdominal Inspection: Normal Distension: No distension Bowel sounds: Normal Tenderness: Tender - Tender in the epigastric and upper abdominal area generally , lower abdomen completely benign Organomegaly: No organomegaly - Back Back: Normal, Nontender. No: Tender, CVA tenderness - Extremities General upper extremity: Normal inspection, Nontender, Normal ROM, Normal strength General lower extremity: Normal inspection, Nontender, Normal ROM, Normal strength - Neurological Neuro grossly intact: Yes Cognition: Normal Orientation: AAOx4 [place] Coma Scale Eye Opening: Spontaneous [place] Coma Scale Verbal: Oriented [place] Coma Scale Motor: Obeys Commands [place] Coma Scale Total: 15 Speech: Normal Motor strength normal: LUE, RUE, LLE, RLE Sensory: Normal - Psychological Associated symptoms: Normal affect, Normal mood - Skin Skin Temperature: Warm Skin Moisture: Dry Skin Color: Normal Course - Re-evaluation Re-evalutation: Patient with discomfort on examination. He ate crackers this morning and vomited, has vomited every time he tried to eat, he did manage to drink a little bit of fluid. No fever, no hypotension, patient is tachycardic. After IV fluids and pain medication tachycardia resolved. Leukocytosis from earlier also resolved. Bilirubin improving instead of worsening, LFTs slightly worse. CAT scan showing pancreatitis but no abscess, cyst, or other abnormality. Ultrasound does not show obstruction. Patient requiring multiple doses of pain medication, lipase only in the 400s. Called and discussed with Dr. Leyva, patient's provider, patient will be admitted for observation. Patient states agreement with admission. - Vital Signs Vital signs: Temp Pulse Resp BP Pulse Ox 97.9 F 116 H 16 116/76 99 01/23/18 04:00 01/22/18 23:26 01/23/18 05:01 01/23/18 05:01 01/23/18 06:00 - Laboratory Result Diagrams: 01/23/18 01:22 01/23/18 01:22 Laboratory results interpreted by me: 01/23/18 01/23/18 01:22 01:22 RBC 3.88 L Hgb 12.8 L Hct 37.7 L RDW 16.2 H Plt Count 129 L BUN 25 H Creatinine 1.32 H Est GFR (Non-Af Amer) 57 L Glucose 117 H Total Bilirubin 3.0 H Direct Bilirubin 1.3 H AST 102 H ALT 77 H Alkaline Phosphatase 155 H Lipase 454.7 H Discharge - Discharge Clinical Impression: Upper abdominal pain Vomiting Qualifiers: Vomiting type: unspecified Vomiting Intractability: non-intractable Nausea presence: with nausea Qualified Code(s): R11.2 - Nausea with vomiting, unspecified Pancreatitis Qualifiers: Chronicity: chronic Pancreatitis type: unspecified pancreatitis type Qualified Code(s): K86.1 - Other chronic pancreatitis Condition: Stable Disposition: ADMITTED OBSERVATION Admitting Provider: Gordon Unit Admitted: Medical Floor
[2018-01-23 01:40] LABS: ABSOLUTE EOSINOPHILS # (AUTO) 0.1 10^3/uL (0.0-0.6); ABSOLUTE LYMPHOCYTES (AUTO) 1.4 10^3/uL (0.5-4.7); ABSOLUTE MONOCYTES (AUTO) 0.6 10^3/uL (0.1-1.4); ABSOLUTE NEUT (AUTO) 5.9 10^3/uL (1.7-8.2); BASOPHILS % (AUTO) 0.4 % (0-2); EOSINOPHILS % (AUTO) 0.9 % (0-6); HEMATOCRIT 37.7 % (37.9-51.0); HEMOGLOBIN 12.8 g/dL (13.5-17.0); LYMPHOCYTES % (AUTO) 17.7 % (13-45); MEAN CORPUSCULAR HGB CONC 33.9 g/dL (32.0-36.0); MEAN CORPUSCULAR VOLUME 97 fl (80-97); PLATELET COUNT 129 10^3/uL (150-450); RED BLOOD COUNT 3.88 10^6/uL (4.35-5.55); RED CELL DISTRIBUTION WIDTH 16.2 % (11.5-14.0); TOTAL CELLS COUNTED % (AUTO) 100 %; WHITE BLOOD COUNT 7.9 10^3/uL (4.0-10.5)
[2018-01-23] MEDS: NORMAL SALINE 1000 ML 1,000 ML IV PRN ×4 (01:44→20:40)
[2018-01-23 01:59] LABS: ALANINE AMINOTRANSFERASE 77 U/L (21-72); ALKALINE PHOSPHATASE 155 U/L (38-126); ANION GAP 13 (5-19); ASPARTATE AMINO TRANSFERASE 102 U/L (17-59); BILIRUBIN,DIRECT 1.3 mg/dL (0.0-0.4); BLOOD UREA NITROGEN 25 mg/dL (7-20); CALCIUM 9.5 mg/dL (8.4-10.2); CARBON DIOXIDE 25 mmol/L (22-30); CHLORIDE 102 mmol/L (98-107); GLUCOSE 117 mg/dL (75-110); LIPASE 454.7 U/L (23-300); POTASSIUM 3.7 mmol/L (3.6-5.0); SODIUM 139.8 mmol/L (137-145); TOTAL PROTEIN 6.6 g/dL (6.3-8.2)
--- NOTE | 2018-01-23 02:41 | RADIOLOGY REPORT (SQ) ---
EXAM DESCRIPTION: CT ABDOMEN AND PELVIS WITH CONTRAST CLINICAL HISTORY: Diffuse abdominal pain COMPARISON: 12/23/2017 TECHNIQUE: CT of the abdomen and pelvis are performed during IV bolus administration of 92 mL of Isovue-370. DLP: 1303.64 mGycm FINDINGS: Abdomen: The liver has normal size and decreased density. No intrahepatic mass or biliary dilatation. No calcified gallstones. Peripancreatic fat stranding. No evidence of pancreatic necrosis or peripancreatic fluid collection. Adrenal glands and spleen are unremarkable. The kidneys have normal size and contour without evidence of solid mass or hydronephrosis. Aortoiliac atherosclerosis. IVC is unremarkable. The portal vein is patent. The proximal visceral and renal arteries are patent. No free intraperitoneal air. The stomach and duodenum have normal course. Pelvis: Prostate is not enlarged. Urinary bladder is unremarkable. No free pelvic fluid or lymphadenopathy. No dilated loops of large or small bowel. Scattered diverticula of the colon. No evidence of appendicitis. The visualized lung bases are clear. No destructive bone lesions identified. IMPRESSION: 1. Findings compatible with acute pancreatitis. No evidence of pancreatic necrosis or peripancreatic fluid collection. 2. Hepatic steatosis. 3. Diverticulosis without evidence of diverticulitis. This exam was performed according to our departmental dose-optimization program, which includes automated exposure control, adjustment of the mA and/or kV according to patient size and/or use of iterative reconstruction technique.
--- NOTE | 2018-01-23 03:59 | RADIOLOGY REPORT (SQ) ---
EXAM DESCRIPTION: U/S ABDOMEN LIMITED W/O DOP CLINICAL HISTORY: Upper abdominal pain, elevated bilirubin COMPARISON: None. TECHNIQUE: Real-time sonographic images of the right upper abdomen were obtained using a curved multihertz transducer. FINDINGS: The visualized portions of the pancreas are unremarkable. The visualized portions of the aorta and IVC are unremarkable. The liver has normal contour and increased echogenicity. Common bile duct measures 0.3 cm. Hepatopedal flow in the portal vein. Echogenic nonshadowing material layering in the gallbladder lumen. The gallbladder is distended measuring 14 cm. Normal gallbladder wall thickness. The right kidney measures 11.1 cm in length. No hydronephrosis, solid renal mass, or shadowing calculi. IMPRESSION: 1. Gallbladder sludge with gallbladder distention. No definite gallstones identified. 2. Hepatic steatosis.
[2018-01-23] MEDS ORDERED: DEXTROSE 50%-WATER 25 GM/50 ML DISP.SYRIN IV PRN ×2 (08:40)
[2018-01-23] MEDS ORDERED: GLUCAGON,HUMAN RECOMB 1 MG INJ SUBCUT PRN (08:40)
[2018-01-23] MEDS ORDERED: DEXTROSE 40% GEL 15 GM TUBE PO PRN ×2 (08:40)
[2018-01-23] MEDS ORDERED: ONDANSETRON HCL INJ/PF 4 MG/2 ML SDV IV PRN (08:41)
[2018-01-23] MEDS: FENTANYL CITRATE INJ/PF 100 MCG/2 ML AMPUL IV PRN ×3 (10:40→20:47)
[2018-01-23] MEDS: FAMOTIDINE INJ/PF 20 MG/2 ML SDV IV SCH ×2 (10:40→21:29)
[2018-01-23] MEDS: ENOXAPARIN SODIUM INJ 40 MG/0.4 ML DISP.SYRIN SUBCUT SCH (10:41)
--- NOTE | 2018-01-23 16:26 | PDOC H&P ---
History of Present Illness Admission Date/PCP: 01/23/18 06:37 ROXIE SANA Patient complains of: Abdominal pain, Nausea, Vomiting, Dizziness History of Present Illness: ESTRELLA GAONA is a 52 year old male known to my practice who was evaluated in the office on 01/22/18 for worsening abdominal pain, nausea, episode of vomiting and inability to eat solid food. While in the office patient demonstrated significant tachycardia, hypotension and dizziness with postural component. In view of his morbidities including recurrent pancreatitis a request for outpatient lab test including serum Amylase, Lipase, CBC, CMP was made with direction to call [email or web address] with result. After review of his outpatient test result patient was directed to the ED for further evaluation due to elevated transaminases, Bilirubin, Lipase and left shift in his white cell count. His CT scan of abdomen did suggested features of Pancreatitis and Fatty liver changes. His abdominal ultrasound was devoid of any hepatobiliary pathology to explain his chemistry findings. Due to his persistent worsening abdominal pain, nausea and vomiting he was advised hospitalization. Patient denied any recent alcohol consumption. As aforementioned he has history of pancreatitis with recurrent episodes and recently discharged from this hospital for recurrent pancreatitis. Other comorbidities include hypertension and COPD. Past Medical History Cardiac Medical History: Reports: Hypertension Pulmonary Medical History: Reports: Chronic Obstructive Pulmonary Disease (COPD) GI Medical History: Reports: Other - Recurrent Pancreatitis Psychiatric Medical History: Denies: Depression Past Surgical History Past Surgical History: Reports: Appendectomy, Tonsillectomy Social History Lives with: Alone Smoking Status: Current Every Day Smoker Frequency of Alcohol Use: None Hx Recreational Drug Use: No Drugs: None Hx Prescription Drug Abuse: No - Advance Directive Resuscitation Status: Full Code Family History Family History: Reviewed & Not Pertinent Parental Family History Reviewed: Yes Children Family History Reviewed: Yes Sibling(s) Family History Reviewed.: Yes Medication/Allergy Home Medications: Albuterol Sulfate [Proair Respiclick] 2 puff IH Q6HP PRN 01/23/18 Fluticasone Propionate [Flonase Nasal Ladora 50 Mcg/Ladora 16 gm] 2 sprays NASL DAILY 01/23/18 Ipratropium/Albuterol Sulfate [Duoneb 3 ml Ampul] 3 ml NEB RTQ6HP PRN 01/23/18 Losartan Potassium [Cozaar 50 mg Tablet] 50 mg PO DAILY 01/23/18 Nicotine [Nicoderm 21 mg/24 Hr Transderm Patch] 1 patch TD DAILY 01/23/18 Sertraline HCl [Zoloft] 100 mg PO DAILY 01/23/18 Trazodone HCl [Desyrel] 300 mg PO QHS 01/23/18 Allergies/Adverse Reactions: hydrocodone [From Lortab] Allergy (Verified 01/23/18 04:58) hydroxyzine Allergy (Verified 01/23/18 04:58) zolpidem [From Ambien] Allergy (Verified 01/23/18 04:58) Review of Systems Constitutional: PRESENT: anorexia, weakness. ABSENT: as per HPI, chills, fatigue, fever(s), headache(s), night sweats, weight gain, weight loss, other Eyes: ABSENT: visual disturbances Ears: ABSENT: hearing changes Nose, Mouth, and Throat: ABSENT: as per HPI, headache(s), mouth pain, sore throat, vertigo, other Cardiovascular: ABSENT: chest pain, dyspnea on exertion, edema, orthropnea, palpitations Respiratory: ABSENT: cough, hemoptysis Gastrointestinal: PRESENT: abdominal pain, nausea, vomiting. ABSENT: as per HPI , bloating, coffee ground emesis, constipation, diarrhea, dysphagia, heartburn, hematemesis, hematochezia, melena, other Genitourinary: ABSENT: dysuria, hematuria Musculoskeletal: ABSENT: joint swelling Neurological: PRESENT: dizziness - worsen with standing and walking, weakness - generalized Psychiatric: ABSENT: anxiety, depression, homidical ideation, suicidal ideation Endocrine: ABSENT: cold intolerance, heat intolerance, polydipsia, polyuria Hematologic/Lymphatic: ABSENT: easy bleeding, easy bruising, lymphadenopathy Physical Exam Vital Signs: Temp Pulse Resp BP Pulse Ox 98.0 F 92 15 121/81 100 01/23/18 12:08 01/23/18 14:00 01/23/18 12:08 01/23/18 12:08 01/23/18 12:08 Intake & Output 01/22/18 01/23/18 01/24/18 06:59 06:59 06:59 Intake Total 0 Balance 0 Weight 90.6 kg General appearance: PRESENT: mild distress - from abdominal pain, well-developed , well-nourished Head exam: PRESENT: atraumatic, normocephalic Eye exam: PRESENT: conjunctiva pink, EOMI, PERRLA. ABSENT: scleral icterus Ear exam: PRESENT: normal external ear exam Mouth exam: PRESENT: moist, tongue midline Throat exam: ABSENT: post pharyngeal erythema, tonsillar erythema, tonsillar exudate, tonsillogmegaly, other Neck exam: PRESENT: full ROM. ABSENT: carotid bruit, JVD, lymphadenopathy, thyromegaly Respiratory exam: PRESENT: clear to auscultation carroll Cardiovascular exam: PRESENT: RRR, tachycardia. ABSENT: diastolic murmur, rubs , systolic murmur Pulses: PRESENT: normal dorsalis pedis pul, +2 pedal pulses bilateral Vascular exam: PRESENT: normal capillary refill. ABSENT: pallor GI/Abdominal exam: PRESENT: tenderness - LUQ and mid abdomen region. ABSENT: ascites, diminished bowel sounds, distended, firm, guarding, hernia, hyperactive bowel sounds, hypoactive bowel sounds, mass, Gusman's sign, normal bowel sounds, organolmegaly, rebound, rigid, soft, other Rectal exam: PRESENT: deferred Extremities exam: ABSENT: pedal edema Musculoskeletal exam: PRESENT: normal inspection Neurological exam: PRESENT: alert, awake, oriented to person, oriented to place , oriented to time, oriented to situation, CN II-XII grossly intact. ABSENT: motor sensory deficit Psychiatric exam: PRESENT: appropriate affect, normal mood. ABSENT: homicidal ideation, suicidal ideation Skin exam: PRESENT: dry, intact, warm. ABSENT: cyanosis, rash Results Laboratory Results: 01/23/18 09:48 01/23/18 09:48 Creatinine 1.04 Est GFR ( Amer) > 60 Est GFR (Non-Af Amer) > 60 Impressions: Abdomen/Pelvis CT 01/23/18 00:00 IMPRESSION: 1. Findings compatible with acute pancreatitis. No evidence of pancreatic necrosis or peripancreatic fluid collection. 2. Hepatic steatosis. 3. Diverticulosis without evidence of diverticulitis. This exam was performed according to our departmental dose-optimization program, which includes automated exposure control, adjustment of the mA and/or kV according to patient size and/or use of iterative reconstruction technique. Abdomen Ultrasound 01/23/18 01:09 IMPRESSION: 1. Gallbladder sludge with gallbladder distention. No definite gallstones identified. 2. Hepatic steatosis. Assessment & Plan - Diagnosis (1) Recurrent acute pancreatitis Is this a current diagnosis for this admission?: Yes Plan: See admitting attending physician orders (2) Hepatic steatosis Is this a current diagnosis for this admission?: Yes Plan: See admitting attending physician orders (3) HTN (hypertension) Qualifiers: Hypertension type: essential hypertension Qualified Code(s): I10 - Essential (primary) hypertension Is this a current diagnosis for this admission?: Yes Plan: See admitting attending physician orders (4) COPD (chronic obstructive pulmonary disease) Qualifiers: COPD type: unspecified COPD Qualified Code(s): J44.9 - Chronic obstructive pulmonary disease, unspecified Is this a current diagnosis for this admission?: Yes Plan: See admitting attending physician orders - Time Time Spent: 50 to 70 Minutes Medications reviewed and adjusted accordingly: Yes Anticipated discharge: Home Within: Other - Inpatient Certification Based on my medical assessment, after consideration of the patient's comorbidities, presenting symptoms, or acuity I expect that the services needed warrant INPATIENT care.: Yes I certify that my determination is in accordance with my understanding of Medicare's requirements for reasonable and necessary INPATIENT services [42 CFR 412.3e].: Yes Medical Necessity: Need Close Monitoring Due to Risk of Patient Decompensation, Need For IV Fluids, Need For Continuous Telemetry Monitoring, Risk of Complication if Not Cared For in Hospital Post 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
[2018-01-23] MEDS: TRAZODONE HCL 50 MG TABLET PO SCH (21:29)
[2018-01-23] MEDS ORDERED: (PENDING PHARMACY ID) (Trazodone Hcl [Desyrel] 300 MG) PO SCH (22:00)
[2018-01-23] MEDS: IPRATROPIUM/ALBUTEROL 0.5-2.5 MG/3 ML AMPUL NEB PRN (22:22)
[2018-01-24] MEDS: FENTANYL CITRATE INJ/PF 100 MCG/2 ML AMPUL IV PRN ×6 (00:35→23:24)
[2018-01-24 05:40] LABS: ABSOLUTE EOSINOPHILS # (AUTO) 0.1 10^3/uL (0.0-0.6); ABSOLUTE LYMPHOCYTES (AUTO) 0.9 10^3/uL (0.5-4.7); ABSOLUTE MONOCYTES (AUTO) 0.3 10^3/uL (0.1-1.4); ABSOLUTE NEUT (AUTO) 4.9 10^3/uL (1.7-8.2); BASOPHILS % (AUTO) 0.6 % (0-2); EOSINOPHILS % (AUTO) 1.4 % (0-6); LYMPHOCYTES % (AUTO) 14.7 % (13-45); MEAN CORPUSCULAR HEMOGLOBIN 33.5 pg (27.0-33.4); MEAN CORPUSCULAR HGB CONC 34.2 g/dL (32.0-36.0); MEAN CORPUSCULAR VOLUME 98 fl (80-97); MONOCYTES % (AUTO) 5.4 % (3-13); RED BLOOD COUNT 2.56 10^6/uL (4.35-5.55); RED CELL DISTRIBUTION WIDTH 15.7 % (11.5-14.0); SEGMENTED NEUTROPHILS % (AUTO) 77.9 % (42-78); TOTAL CELLS COUNTED % (AUTO) 100 %; WHITE BLOOD COUNT 6.2 10^3/uL (4.0-10.5)
[2018-01-24 05:59] LABS: ALANINE AMINOTRANSFERASE 58 U/L (21-72); ALBUMIN 2.5 g/dL (3.5-5.0); ALKALINE PHOSPHATASE 107 U/L (38-126); ANION GAP 9 (5-19); ASPARTATE AMINO TRANSFERASE 82 U/L (17-59); BILIRUBIN,DIRECT 0.8 mg/dL (0.0-0.4); BILIRUBIN,TOTAL 1.1 mg/dL (0.2-1.3); BLOOD UREA NITROGEN 15 mg/dL (7-20); CARBON DIOXIDE 20 mmol/L (22-30); CHLORIDE 107 mmol/L (98-107); GLUCOSE 56 mg/dL (75-110); LIPASE 314.4 U/L (23-300); POTASSIUM 3.5 mmol/L (3.6-5.0); SODIUM 136.2 mmol/L (137-145); TOTAL PROTEIN 4.6 g/dL (6.3-8.2)
[2018-01-24 06:18] LABS: HEMOGLOBIN 8.6 g/dL (13.5-17.0)
[2018-01-24 06:19] LABS: PLATELET COUNT 66 10^3/uL (150-450)
[2018-01-24] MEDS: FAMOTIDINE INJ/PF 20 MG/2 ML SDV IV SCH ×2 (09:39→22:00)
[2018-01-24] MEDS: NICOTINE 21 MG/24 HR PATCH.TD24 TD SCH (09:40)
[2018-01-24] MEDS: SERTRALINE HCL 50 MG TABLET PO SCH (09:41)
[2018-01-24] MEDS: ENOXAPARIN SODIUM INJ 40 MG/0.4 ML DISP.SYRIN SUBCUT SCH (09:47)
[2018-01-24] MEDS: NORMAL SALINE 1000 ML 1,000 ML IV PRN ×2 (09:47→17:46)
--- NOTE | 2018-01-24 12:52 | PDOC PROGRESS REPORT ---
Subjective Progress Note for:: 01/24/18 Subjective:: Patient was admitted yesterday when he presented with acute pancreatitis, he has no vomiting, he has some abdominal discomfort, he can start p.o. food, there is no need to keep him n.p.o. since he is not vomiting Reason For Visit: RECURRENT PANCREATITIS, NAUSEA, VOMITING,DIZZINESS Physical Exam Vital Signs: Temp Pulse Resp BP Pulse Ox 98.8 F 74 16 118/74 100 01/24/18 08:10 01/24/18 08:10 01/24/18 08:10 01/24/18 08:10 01/24/18 08:10 Intake & Output 01/23/18 01/24/18 01/25/18 06:59 06:59 07:59 Intake Total 1900 Balance 1900 Weight 90.6 kg General appearance: PRESENT: no acute distress Head exam: PRESENT: atraumatic, normocephalic Ear exam: PRESENT: normal external ear exam Mouth exam: PRESENT: moist, tongue midline Neck exam: PRESENT: full ROM Respiratory exam: PRESENT: clear to auscultation carroll Cardiovascular exam: PRESENT: RRR, +S1, +S2 Vascular exam: PRESENT: normal capillary refill GI/Abdominal exam: PRESENT: normal bowel sounds, soft Rectal exam: PRESENT: deferred Neurological exam: PRESENT: alert, CN II-XII grossly intact Psychiatric exam: PRESENT: appropriate affect, normal mood Skin exam: PRESENT: dry, intact, warm Results Laboratory Results: 01/24/18 04:16 01/24/18 04:16 01/24/18 01/24/18 04:16 04:16 WBC 6.2 RBC 2.56 L Hgb 8.6 L D Hct 25.0 L MCV 98 H MCH 33.5 H MCHC 34.2 RDW 15.7 H Plt Count 66 L Seg Neutrophils % 77.9 Lymphocytes % 14.7 Monocytes % 5.4 Eosinophils % 1.4 Basophils % 0.6 Absolute Neutrophils 4.9 Absolute Lymphocytes 0.9 Absolute Monocytes 0.3 Absolute Eosinophils 0.1 Absolute Basophils 0.0 Sodium 136.2 L Potassium 3.5 L Chloride 107 Carbon Dioxide 20 L Anion Gap 9 BUN 15 Creatinine 0.77 Est GFR ( Amer) > 60 Est GFR (Non-Af Amer) > 60 Glucose 56 L Calcium 8.0 L Total Bilirubin 1.1 AST 82 H ALT 58 Alkaline Phosphatase 107 Total Protein 4.6 L Albumin 2.5 L Lipase 314.4 H Impressions: Abdomen/Pelvis CT 01/23/18 00:00 IMPRESSION: 1. Findings compatible with acute pancreatitis. No evidence of pancreatic necrosis or peripancreatic fluid collection. 2. Hepatic steatosis. 3. Diverticulosis without evidence of diverticulitis. This exam was performed according to our departmental dose-optimization program, which includes automated exposure control, adjustment of the mA and/or kV according to patient size and/or use of iterative reconstruction technique. Abdomen Ultrasound 01/23/18 01:09 IMPRESSION: 1. Gallbladder sludge with gallbladder distention. No definite gallstones identified. 2. Hepatic steatosis. Assessment & Plan - Diagnosis (1) Acute pancreatitis Qualifiers: Pancreatitis type: alcohol induced Acute pancreatitis complication: no infection or necrosis Qualified Code(s): K85.20 - Alcohol induced acute pancreatitis without necrosis or infection Is this a current diagnosis for this admission?: Yes Plan: Patient will be started on regular diet, clear liquid diet and advance as tolerated to regular diet
[2018-01-24] MEDS: IPRATROPIUM/ALBUTEROL 0.5-2.5 MG/3 ML AMPUL NEB PRN (20:41)
[2018-01-24] MEDS: TRAZODONE HCL 50 MG TABLET PO SCH (23:23)
[2018-01-25] MEDS: FENTANYL CITRATE INJ/PF 100 MCG/2 ML AMPUL IV PRN ×4 (04:37→20:30)
[2018-01-25] MEDS: NORMAL SALINE 1000 ML 1,000 ML IV PRN (05:27)
[2018-01-25] MEDS: FAMOTIDINE INJ/PF 20 MG/2 ML SDV IV SCH ×2 (11:08→22:18)
[2018-01-25] MEDS: NICOTINE 21 MG/24 HR PATCH.TD24 TD SCH (11:08)
[2018-01-25] MEDS: SERTRALINE HCL 50 MG TABLET PO SCH (11:08)
[2018-01-25] MEDS: ENOXAPARIN SODIUM INJ 40 MG/0.4 ML DISP.SYRIN SUBCUT SCH (11:09)
--- NOTE | 2018-01-25 12:53 | PDOC PROGRESS REPORT ---
Subjective Progress Note for:: 01/25/18 Subjective:: Patient was seen by the bedside, there is no new complaint, he had food yesterday there is no vomiting, he has some minimal abdominal discomfort otherwise is stable Reason For Visit: RECURRENT PANCREATITIS, NAUSEA, VOMITING,DIZZINESS Physical Exam Vital Signs: Temp Pulse Resp BP Pulse Ox 98.6 F 87 16 127/90 H 100 01/25/18 11:52 01/25/18 11:52 01/25/18 11:52 01/25/18 11:52 01/25/18 11:52 Intake & Output 01/24/18 01/25/18 01/26/18 05:59 06:59 06:59 Intake Total Output Total Balance Weight General appearance: PRESENT: no acute distress Eye exam: PRESENT: PERRLA Respiratory exam: PRESENT: clear to auscultation carroll Cardiovascular exam: PRESENT: +S1, +S2 GI/Abdominal exam: PRESENT: soft Neurological exam: PRESENT: alert, CN II-XII grossly intact Results Laboratory Results: 01/24/18 04:16 01/24/18 04:16 Impressions: Abdomen/Pelvis CT 01/23/18 00:00 IMPRESSION: 1. Findings compatible with acute pancreatitis. No evidence of pancreatic necrosis or peripancreatic fluid collection. 2. Hepatic steatosis. 3. Diverticulosis without evidence of diverticulitis. This exam was performed according to our departmental dose-optimization program, which includes automated exposure control, adjustment of the mA and/or kV according to patient size and/or use of iterative reconstruction technique. Abdomen Ultrasound 01/23/18 01:09 IMPRESSION: 1. Gallbladder sludge with gallbladder distention. No definite gallstones identified. 2. Hepatic steatosis. Assessment & Plan - Diagnosis (1) Acute pancreatitis Qualifiers: Pancreatitis type: alcohol induced Acute pancreatitis complication: no infection or necrosis Qualified Code(s): K85.20 - Alcohol induced acute pancreatitis without necrosis or infection Is this a current diagnosis for this admission?: Yes Plan: Continue present treatment
[2018-01-26] MEDS: TRAZODONE HCL 50 MG TABLET PO SCH ×2 (00:44→23:59)
[2018-01-26] MEDS: FENTANYL CITRATE INJ/PF 100 MCG/2 ML AMPUL IV PRN ×4 (00:44→23:59)
[2018-01-26] MEDS: FAMOTIDINE INJ/PF 20 MG/2 ML SDV IV SCH ×2 (10:10→21:22)
[2018-01-26] MEDS: SERTRALINE HCL 50 MG TABLET PO SCH (10:10)
[2018-01-26] MEDS: NICOTINE 21 MG/24 HR PATCH.TD24 TD SCH (10:10)
[2018-01-26] MEDS: ENOXAPARIN SODIUM INJ 40 MG/0.4 ML DISP.SYRIN SUBCUT SCH (10:11)
[2018-01-26] MEDS: NORMAL SALINE 1000 ML 1,000 ML IV PRN ×3 (12:33→23:17)
[2018-01-26] MEDS ORDERED: NALOXONE HCL INJ/PF 0.4 MG/1 ML SDV ONE (17:37)
[2018-01-26] MEDS ORDERED: MIDAZOLAM 2 MG/2 ML INJ ONE (17:38)
[2018-01-26] MEDS ORDERED: EPINEPHRINE INJ 1 MG/10 ML DISP.SYRIN ONE (17:39)
[2018-01-26] MEDS ORDERED: FLUMAZENIL INJ 0.5 MG/5 ML VIAL ONE (17:39)
[2018-01-26] MEDS ORDERED: GLUCAGON,HUMAN RECOMB 1 MG INJ ONE (17:39)
--- NOTE | 2018-01-26 19:26 | PDOC PROGRESS REPORT ---
Subjective Progress Note for:: 01/26/18 Subjective:: Patient mistakenly eat dinner precluding ERCP planned for later today. No nausea , vomiting or diarrhea. Abdominal discomfort without definite pain. No chest pain or difficulty with breathing. No fever or chills. Reason For Visit: RECURRENT PANCREATITIS, NAUSEA, VOMITING,DIZZINESS Physical Exam Vital Signs: Temp Pulse Resp BP Pulse Ox 98.0 F 83 16 122/81 98 01/26/18 16:24 01/26/18 16:38 01/26/18 16:38 01/26/18 16:24 01/26/18 16:38 Intake & Output 01/25/18 01/26/18 01/27/18 06:59 06:59 06:59 Intake Total 01352 3755 Output Total Balance 71989 3755 Weight 89.4 kg General appearance: PRESENT: no acute distress, well-developed, well-nourished Head exam: PRESENT: atraumatic, normocephalic Eye exam: PRESENT: conjunctiva pink, EOMI, PERRLA. ABSENT: scleral icterus Mouth exam: PRESENT: moist Respiratory exam: PRESENT: clear to auscultation carroll Cardiovascular exam: PRESENT: RRR. ABSENT: diastolic murmur, rubs, systolic murmur GI/Abdominal exam: PRESENT: normal bowel sounds, soft, tenderness - minimal in LUQ andc mid abdominal region rated at 2/10 presently. ABSENT: distended, guarding, mass, organolmegaly, rebound Extremities exam: ABSENT: pedal edema Musculoskeletal exam: PRESENT: normal inspection Neurological exam: PRESENT: alert, awake, oriented to person, oriented to place , oriented to time, oriented to situation, CN II-XII grossly intact. ABSENT: motor sensory deficit Psychiatric exam: PRESENT: appropriate affect, normal mood. ABSENT: homicidal ideation, suicidal ideation Skin exam: PRESENT: dry, intact, warm. ABSENT: cyanosis, rash Results Laboratory Results: 01/24/18 04:16 01/24/18 04:16 Impressions: Abdomen/Pelvis CT 01/23/18 00:00 IMPRESSION: 1. Findings compatible with acute pancreatitis. No evidence of pancreatic necrosis or peripancreatic fluid collection. 2. Hepatic steatosis. 3. Diverticulosis without evidence of diverticulitis. This exam was performed according to our departmental dose-optimization program, which includes automated exposure control, adjustment of the mA and/or kV according to patient size and/or use of iterative reconstruction technique. Abdomen Ultrasound 01/23/18 01:09 IMPRESSION: 1. Gallbladder sludge with gallbladder distention. No definite gallstones identified. 2. Hepatic steatosis. Assessment & Plan - Diagnosis (1) Recurrent acute pancreatitis Is this a current diagnosis for this admission?: Yes (2) Hepatic steatosis Is this a current diagnosis for this admission?: Yes (3) HTN (hypertension) Qualifiers: Hypertension type: essential hypertension Qualified Code(s): I10 - Essential (primary) hypertension Is this a current diagnosis for this admission?: Yes (4) COPD (chronic obstructive pulmonary disease) Qualifiers: COPD type: unspecified COPD Qualified Code(s): J44.9 - Chronic obstructive pulmonary disease, unspecified Is this a current diagnosis for this admission?: Yes (5) Anemia of other chronic disease Is this a current diagnosis for this admission?: Yes (6) Transient thrombocytopenia Is this a current diagnosis for this admission?: Yes - Time Time Spent with patient: 35 or more minutes Medications reviewed and adjusted accordingly: Yes Anticipated discharge: Home Within: Other - Inpatient Certification Based on my medical assessment, after consideration of the patient's comorbidities, presenting symptoms, or acuity I expect that the services needed warrant INPATIENT care.: Yes I certify that my determination is in accordance with my understanding of Medicare's requirements for reasonable and necessary INPATIENT services [42 CFR 412.3e].: Yes Medical Necessity: Need Close Monitoring Due to Risk of Patient Decompensation, Need For IV Fluids, Need For Continuous Telemetry Monitoring, Risk of Complication if Not Cared For in Hospital 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 Keep NPO after 1 pm tomorrow for ERCP by Dr Wheeler. Follow up on pending labs.
[2018-01-26 19:55] LABS: HEMATOCRIT 26.7 % (37.9-51.0); HEMOGLOBIN 9.3 g/dL (13.5-17.0); MEAN CORPUSCULAR HEMOGLOBIN 33.7 pg (27.0-33.4); MEAN CORPUSCULAR VOLUME 96 fl (80-97); RED BLOOD COUNT 2.77 10^6/uL (4.35-5.55); RED CELL DISTRIBUTION WIDTH 15.9 % (11.5-14.0); WHITE BLOOD COUNT 3.8 10^3/uL (4.0-10.5)
[2018-01-26 19:57] LABS: PLATELET COUNT 98 10^3/uL (150-450)
[2018-01-26 20:02] LABS: INTERNATIONAL RATION (INR) 0.96; PROTHROMBIN TIME 13.4 SEC (11.4-15.4)
[2018-01-26 20:20] LABS: ALANINE AMINOTRANSFERASE 58 U/L (21-72); ALBUMIN 2.8 g/dL (3.5-5.0); ALKALINE PHOSPHATASE 111 U/L (38-126); ANION GAP 8 (5-19); ASPARTATE AMINO TRANSFERASE 78 U/L (17-59); BILIRUBIN,DIRECT 0.5 mg/dL (0.0-0.4); BILIRUBIN,TOTAL 0.5 mg/dL (0.2-1.3); BLOOD UREA NITROGEN 4 mg/dL (7-20); CALCIUM 7.6 mg/dL (8.4-10.2); CARBON DIOXIDE 31 mmol/L (22-30); CHLORIDE 102 mmol/L (98-107); GLUCOSE 105 mg/dL (75-110); POTASSIUM 3.1 mmol/L (3.6-5.0); SODIUM 140.8 mmol/L (137-145); TOTAL PROTEIN 5.1 g/dL (6.3-8.2)
[2018-01-27] MEDS: FENTANYL CITRATE INJ/PF 100 MCG/2 ML AMPUL IV PRN ×3 (05:35→20:49)
--- NOTE | 2018-01-27 09:02 | PDOC PROGRESS REPORT ---
Subjective Progress Note for:: 01/27/18 Subjective:: Patient denied abdomina;l pain, nausea, vomiting or diarrhea. Tolerating liquid diet. he was reminded to remain NPO after 1 pm today. No chest pain or difficulty with breathing. No fever or chills. Reason For Visit: RECURRENT PANCREATITIS, NAUSEA, VOMITING,DIZZINESS Physical Exam Vital Signs: Temp Pulse Resp BP Pulse Ox 98.2 F 62 16 116/62 100 01/27/18 07:58 01/27/18 07:58 01/27/18 07:58 01/27/18 07:58 01/27/18 07:58 Intake & Output 01/26/18 01/27/18 01/28/18 06:59 06:59 06:59 Intake Total 66211 4955 Balance 22166 4955 Weight 89.4 kg Physical Exam: General appearance: PRESENT: no acute distress, well-developed, well-nourished Head exam: PRESENT: atraumatic, normocephalic Eye exam: PRESENT: conjunctiva pink, EOMI, PERRLA. ABSENT: scleral icterus Mouth exam: PRESENT: moist Respiratory exam: PRESENT: clear to auscultation carroll Cardiovascular exam: PRESENT: RRR. ABSENT: diastolic murmur, rubs, systolic murmur GI/Abdominal exam: PRESENT: normal bowel sounds, soft ABSENT: distended, tenderness, guarding, mass, organomegaly, rebound Extremities exam: ABSENT: pedal edema Musculoskeletal exam: PRESENT: normal inspection Neurological exam: PRESENT: alert, awake, oriented to person, oriented to place , oriented to time, oriented to situation, CN II-XII grossly intact. ABSENT: motor sensory deficit Psychiatric exam: PRESENT: appropriate affect, normal mood. ABSENT: homicidal ideation, suicidal ideation Skin exam: PRESENT: dry, intact, warm. ABSENT: cyanosis, rash Results Laboratory Results: 01/26/18 19:30 01/26/18 19:30 01/26/18 01/26/18 19:30 19:30 WBC 3.8 L RBC 2.77 L Hgb 9.3 L Hct 26.7 L MCV 96 MCH 33.7 H MCHC 35.0 RDW 15.9 H Plt Count 98 L Sodium 140.8 Potassium 3.1 L Chloride 102 Carbon Dioxide 31 H Anion Gap 8 BUN 4 L Creatinine 0.80 Est GFR ( Amer) > 60 Est GFR (Non-Af Amer) > 60 Glucose 105 Calcium 7.6 L Total Bilirubin 0.5 AST 78 H ALT 58 Alkaline Phosphatase 111 Total Protein 5.1 L Albumin 2.8 L Impressions: Abdomen/Pelvis CT 01/23/18 00:00 IMPRESSION: 1. Findings compatible with acute pancreatitis. No evidence of pancreatic necrosis or peripancreatic fluid collection. 2. Hepatic steatosis. 3. Diverticulosis without evidence of diverticulitis. This exam was performed according to our departmental dose-optimization program, which includes automated exposure control, adjustment of the mA and/or kV according to patient size and/or use of iterative reconstruction technique. Abdomen Ultrasound 01/23/18 01:09 IMPRESSION: 1. Gallbladder sludge with gallbladder distention. No definite gallstones identified. 2. Hepatic steatosis. Assessment & Plan - Diagnosis (1) Recurrent acute pancreatitis Is this a current diagnosis for this admission?: Yes (2) Hepatic steatosis Is this a current diagnosis for this admission?: Yes (3) HTN (hypertension) Qualifiers: Hypertension type: essential hypertension Qualified Code(s): I10 - Essential (primary) hypertension Is this a current diagnosis for this admission?: Yes (4) COPD (chronic obstructive pulmonary disease) Qualifiers: COPD type: unspecified COPD Qualified Code(s): J44.9 - Chronic obstructive pulmonary disease, unspecified Is this a current diagnosis for this admission?: Yes (5) Anemia of other chronic disease Is this a current diagnosis for this admission?: Yes (6) Transient thrombocytopenia Is this a current diagnosis for this admission?: Yes Plan: Probably due to IV Famotidine usage. (7) Hypokalemia due to inadequate potassium intake Is this a current diagnosis for this admission?: Yes Plan: Patient will receive IV Potassium rider replacement. Obtain serum mag level. Repeat BMP after correction therapy. (8) Hypocalcemia Is this a current diagnosis for this admission?: Yes Plan: Corrected calcium is adequate at 8.56. Patient will resume advance and adequate oral intake as tolerated after ERCP completion. - Time Time Spent with patient: 25-34 minutes Medications reviewed and adjusted accordingly: Yes Anticipated discharge: Home - Inpatient Certification Based on my medical assessment, after consideration of the patient's comorbidities, presenting symptoms, or acuity I expect that the services needed warrant INPATIENT care.: Yes I certify that my determination is in accordance with my understanding of Medicare's requirements for reasonable and necessary INPATIENT services [42 CFR 412.3e].: Yes Medical Necessity: Need For IV Fluids, Need For Continuous Telemetry Monitoring , Risk of Complication if Not Cared For in Hospital 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 Follow up on ERCP findings.
[2018-01-27] MEDS: POTASSI CL 20 MEQ/50 ML RIDER 20 MEQ/50 ML RTUPB IV SCH ×2 (12:37→14:48)
[2018-01-27] MEDS: NICOTINE 21 MG/24 HR PATCH.TD24 TD SCH (12:38)
[2018-01-27] MEDS: SERTRALINE HCL 50 MG TABLET PO SCH (12:38)
[2018-01-27] MEDS: NORMAL SALINE 1000 ML 1,000 ML IV PRN ×2 (12:39→20:49)
[2018-01-27] MEDS: ENOXAPARIN SODIUM INJ 40 MG/0.4 ML DISP.SYRIN SUBCUT SCH (12:39)
[2018-01-27] MEDS ORDERED: MAGNESIUM SULFATE/D5W 1 GM/100 ML RTUPB IV ONE ×2 (14:30→20:00)
[2018-01-27] MEDS ORDERED: FENTANYL CITRATE INJ/PF 100 MCG/2 ML AMPUL ONE (16:12)
[2018-01-27] MEDS ORDERED: MIDAZOLAM 2 MG/2 ML INJ ONE (16:12)
[2018-01-27] MEDS ORDERED: NALOXONE HCL INJ/PF 0.4 MG/1 ML SDV ONE (16:12)
[2018-01-27] MEDS ORDERED: GLUCAGON,HUMAN RECOMB 1 MG INJ ONE (16:13)
[2018-01-27] MEDS ORDERED: FLUMAZENIL INJ 0.5 MG/5 ML VIAL ONE (16:13)
[2018-01-27] MEDS ORDERED: EPINEPHRINE INJ 1 MG/10 ML DISP.SYRIN ONE (16:13)
--- NOTE | 2018-01-27 16:59 | PDOC CONSULTATION ---
Consultation Consult Date: 01/26/18 History of Present Illness Admission Date/PCP: 01/23/18 06:37 ROXIE LAIRDPAULIECrystal History of Present Illness: This is a 52-year-old patient who was admitted on 01/23/2018 with abdominal pain, nausea, and vomiting. He was diagnosed with acute pancreatitis based on an abnormal CAT scan showing peripancreatic fat stranding but his lipase was only slightly elevated at 500. His LFTs were elevated on admission with a bilirubin of 3.9 alkaline phosphatase of 139, AST 92 and ALT of 69. By the next day of admission on on 01/24/2018 the LFTs his bilirubin was normal. He stopped abusing alcohol after his pancreatitis in 2013. His preadmission symptoms are similar to what he had in December 2017 and in May of last year. He was admitted with similar symptoms back in October 2014 when his lipase was 1000 and his CAT scan also showed evidence of acute pancreatitis. His bilirubin was 3.6 on admission in 2013. He was again admitted in May of last year with pancreatitis with a lipase of 3800 and abnormal CAT scan. His LFTs were near normal during that admission. He was admitted in December of this year with a lipase of 2600 and elevated AST and total bilirubin of 1.4. All his previous CT and ultrasound had shown no gallstones except for the most recent ultrasound during this admission that showed gallbladder sludge. He has a chronic hepatic steatosis. Hepatitis A, B, and C serology were negative in October 2014 Past Medical History Cardiac Medical History: Reports: Hypertension Pulmonary Medical History: Reports: Chronic Obstructive Pulmonary Disease (COPD) GI Medical History: Reports: Other - Recurrent Pancreatitis Psychiatric Medical History: Denies: Depression Past Surgical History Past Surgical History: Reports: Appendectomy, Tonsillectomy Social History Lives with: Alone Smoking Status: Current Every Day Smoker Frequency of Alcohol Use: None Hx Recreational Drug Use: No Drugs: None Hx Prescription Drug Abuse: No - Advance Directive Resuscitation Status: Full Code Family History Family History: Reviewed & Not Pertinent Parental Family History Reviewed: No Children Family History Reviewed: NA Sibling(s) Family History Reviewed.: NA Medication/Allergy Home Medications: Albuterol Sulfate [Proair Respiclick] 2 puff IH Q6HP PRN 01/23/18 Fluticasone Propionate [Flonase Nasal [place] 50 Mcg/[place] 16 gm] 2 sprays NASL DAILY 01/23/18 Ipratropium/Albuterol Sulfate [Duoneb 3 ml Ampul] 3 ml NEB RTQ6HP PRN 01/23/18 Losartan Potassium [Cozaar 50 mg Tablet] 50 mg PO DAILY 01/23/18 Nicotine [Nicoderm 21 mg/24 Hr Transderm Patch] 1 patch TD DAILY 01/23/18 Sertraline HCl [Zoloft] 100 mg PO DAILY 01/23/18 Trazodone HCl [Desyrel] 300 mg PO QHS 01/23/18 Allergies/Adverse Reactions: hydrocodone [From Lortab] Allergy (Verified 01/23/18 04:58) hydroxyzine Allergy (Verified 01/23/18 04:58) zolpidem [From Ambien] Allergy (Verified 01/23/18 04:58) Review of Systems All systems: reviewed and no additional remarkable complaints except as stated Physical Exam Vital Signs: Temp Pulse Resp BP Pulse Ox 98.0 F 83 16 122/81 98 01/26/18 16:24 01/26/18 16:38 01/26/18 16:38 01/26/18 16:24 01/26/18 16:38 Intake & Output 01/25/18 01/26/18 01/27/18 06:59 06:59 06:59 Intake Total 16488 3755 Output Total Balance 54532 3755 Weight 89.4 kg Results Laboratory Results: 01/24/18 04:16 01/24/18 04:16 Impressions: Abdomen/Pelvis CT 01/23/18 00:00 IMPRESSION: 1. Findings compatible with acute pancreatitis. No evidence of pancreatic necrosis or peripancreatic fluid collection. 2. Hepatic steatosis. 3. Diverticulosis without evidence of diverticulitis. This exam was performed according to our departmental dose-optimization program, which includes automated exposure control, adjustment of the mA and/or kV according to patient size and/or use of iterative reconstruction technique. Abdomen Ultrasound 01/23/18 01:09 IMPRESSION: 1. Gallbladder sludge with gallbladder distention. No definite gallstones identified. 2. Hepatic steatosis. Assessment & Plan - Diagnosis (1) Acute pancreatitis Qualifiers: Pancreatitis type: biliary Acute pancreatitis complication: no infection or necrosis Qualified Code(s): K85.10 - Biliary acute pancreatitis without necrosis or infection Is this a current diagnosis for this admission?: Yes Plan: He has recurrent acute pancreatitis that has been going on since 2013. He has had 3 episodes so far with transient elevation of his LFTs on 2 occasions. He does have gallbladder sludge and I suspect he may have choledocholithiasis. The need for an ERCP was explained to the patient and he is in agreement. (2) Abnormal liver function Is this a current diagnosis for this admission?: Yes Plan: He has transient elevation of his liver function tests most likely related to his pancreatitis. He also has diffuse hepatic steatosis which may also explain mild elevation of his LFTs. Viral hepatitis serology was negative in 2014. (4) Hepatic steatosis Is this a current diagnosis for this admission?: Yes (5) Anemia Qualifiers: Anemia type: unspecified type Qualified Code(s): D64.9 - Anemia, unspecified Is this a current diagnosis for this admission?: Yes Plan: His hemoglobin has dropped from 12 to 8 since admission. This may partly be from rehydration but his platelet count has also dropped. His CBC is being repeated tonight.
[2018-01-27] MEDS: MIDAZOLAM 2 MG/2 ML INJ ONE ×6 (17:12→17:26)
[2018-01-27] MEDS: FENTANYL CITRATE INJ/PF 100 MCG/2 ML AMPUL ONE ×3 (17:14→17:28)
--- NOTE | 2018-01-27 17:54 | Operative Report ---
Operative Report DATE OF SURGERY: 01/27/18 Operative Report: Pre-op diagnosis: Recurrent acute pancreatitis and transient elevation of LFTs Post-op diagnosis: Small common bile duct stone Surgery: ERCP with sphincterotomy and balloon sludge extraction Medications: Versed 7mg Fentanyl 200mcg IV push Tissue removed: None Procedure: After informed consent obtained from patient, the throat was sprayed with Hurricane and conscious sedation was achieved. The ERCP endoscope was then inserted into the esophagus blindly and advanced into the stomach. The duodenum was entered with some difficulty going to the pylorus due to the redundant stomach, and the ampulla was identified. Using the triple-lumen sphincterotomy catheter the common bile duct was freely cannulated. A cholangiogram was obtained which showed possible filling defect in the distal common bile duct. The common bile duct and intrahepatic ducts did not appear dilated. A good sized sphincterotomy was then performed using the endocut mode. The catheter was removed over the guidewire before a 9-12 mm balloon catheter was inserted. The balloon was inflated to 12 mm in the proximal common bile duct and pulled down the duct. A small stone was extracted. The duct was swept one more time. A balloon occlusion cholangiogram was normal. The pancreatic duct was intentionally not cannulated. Patient tolerated procedure well. Findings Common bile duct: Small stone with some sludge Intrahepatic ducts: Normal Pancreatic duct: Not cannulated Plan: Follow-up liver function tests OPERATION: .
--- NOTE | 2018-01-27 19:54 | RADIOLOGY REPORT (SQ) ---
EXAM DESCRIPTION: NO CHG FLUORO; ENDO CATH/BILIARY DUCT COMPLETED DATE/TIME: 01/27/2018 7:24 pm REASON FOR STUDY: ERCP COMPARISON: None. FLUOROSCOPY TIME: 1.2 minutes 6 Images saved to PACS RADIATION DOSE: 23.2 mGy LIMITATIONS: None. PROCEDURE: Endoscopic urinary duct stone removal FINDINGS: 6 images document the removal of stones from the common bile duct. On the final image no stones are appreciated. IMPRESSION: Removal of stones from the common bile duct. COMMENT: PQRS 6045F: Fluoroscopy time of the procedure is documented in the report. TECHNICAL DOCUMENTATION: JOB ID: [id number] [employer]- All Rights Reserved Reading location - IP/workstation name: [email or web address]
--- NOTE | 2018-01-27 19:54 | RADIOLOGY REPORT (SQ) ---
EXAM DESCRIPTION: NO CHG FLUORO; ENDO CATH/BILIARY DUCT COMPLETED DATE/TIME: 01/27/2018 7:24 pm REASON FOR STUDY: ERCP COMPARISON: None. FLUOROSCOPY TIME: 1.2 minutes 6 Images saved to PACS RADIATION DOSE: 23.2 mGy LIMITATIONS: None. PROCEDURE: Endoscopic urinary duct stone removal FINDINGS: 6 images document the removal of stones from the common bile duct. On the final image no stones are appreciated. IMPRESSION: Removal of stones from the common bile duct. COMMENT: PQRS 6045F: Fluoroscopy time of the procedure is documented in the report. TECHNICAL DOCUMENTATION: JOB ID: [id number] [employer]- All Rights Reserved Reading location - IP/workstation name: [email or web address]
[2018-01-27] MEDS: TRAZODONE HCL 50 MG TABLET PO SCH (23:05)
[2018-01-28 05:31] LABS: HEMATOCRIT 26.5 % (37.9-51.0); HEMOGLOBIN 9.2 g/dL (13.5-17.0); MEAN CORPUSCULAR HEMOGLOBIN 33.8 pg (27.0-33.4); MEAN CORPUSCULAR HGB CONC 34.7 g/dL (32.0-36.0); MEAN CORPUSCULAR VOLUME 97 fl (80-97); PLATELET COUNT 109 10^3/uL (150-450); RED BLOOD COUNT 2.72 10^6/uL (4.35-5.55); RED CELL DISTRIBUTION WIDTH 16.7 % (11.5-14.0); WHITE BLOOD COUNT 3.6 10^3/uL (4.0-10.5)
[2018-01-28 05:45] LABS: ALANINE AMINOTRANSFERASE 56 U/L (21-72); ALBUMIN 2.7 g/dL (3.5-5.0); ALKALINE PHOSPHATASE 103 U/L (38-126); ASPARTATE AMINO TRANSFERASE 53 U/L (17-59); BILIRUBIN,DIRECT 0.4 mg/dL (0.0-0.4); BILIRUBIN,TOTAL 0.4 mg/dL (0.2-1.3); TOTAL PROTEIN 4.5 g/dL (6.3-8.2)
[2018-01-28] MEDS: ENOXAPARIN SODIUM INJ 40 MG/0.4 ML DISP.SYRIN SUBCUT SCH (10:13)
[2018-01-28] MEDS: NICOTINE 21 MG/24 HR PATCH.TD24 TD SCH (10:14)
[2018-01-28] MEDS: SERTRALINE HCL 50 MG TABLET PO SCH (10:14)
[2018-01-28 10:43] LABS: ANION GAP 8 (5-19); BLOOD UREA NITROGEN 5 mg/dL (7-20); CALCIUM 7.2 mg/dL (8.4-10.2); CARBON DIOXIDE 29 mmol/L (22-30); CHLORIDE 103 mmol/L (98-107); GLUCOSE 89 mg/dL (75-110); POTASSIUM 3.1 mmol/L (3.6-5.0)
[2018-01-28] MEDS: FENTANYL CITRATE INJ/PF 100 MCG/2 ML AMPUL IV PRN ×3 (12:10→21:24)
[2018-01-28] MEDS: NORMAL SALINE 1000 ML 1,000 ML IV PRN ×2 (12:10→23:11)
[2018-01-28] MEDS ORDERED: MAGNESIUM SULFATE/D5W 1 GM/100 ML RTUPB IV ONE (18:08)
--- NOTE | 2018-01-28 18:11 | PDOC PROGRESS REPORT ---
Subjective Progress Note for:: 01/28/18 Subjective:: Patient denied any significant abdominal pain, nausea, vomiting or diarrhea. Tolerating full liquid diet. No chest pain or difficulty with breathing. No fever or chills. Reason For Visit: RECURRENT PANCREATITIS, NAUSEA, VOMITING,DIZZINESS Physical Exam Vital Signs: Temp Pulse Resp BP Pulse Ox 97.8 F 57 L 18 117/71 100 01/28/18 16:21 01/28/18 16:21 01/28/18 16:21 01/28/18 16:21 01/28/18 16:21 Intake & Output 01/27/18 01/28/18 01/29/18 06:59 06:59 06:59 Intake Total 4955 4110 1928 Balance 4955 4110 1928 Physical Exam: General appearance: PRESENT: no acute distress, well-developed, well-nourished Head exam: PRESENT: atraumatic, normocephalic Eye exam: PRESENT: conjunctiva pink, EOMI, PERRLA. ABSENT: scleral icterus Mouth exam: PRESENT: moist Respiratory exam: PRESENT: clear to auscultation carroll Cardiovascular exam: PRESENT: RRR. ABSENT: diastolic murmur, rubs, systolic murmur GI/Abdominal exam: PRESENT: normal bowel sounds, soft ABSENT: distended, tenderness, guarding, mass, organomegaly, rebound Extremities exam: ABSENT: pedal edema Musculoskeletal exam: PRESENT: normal inspection Neurological exam: PRESENT: alert, awake, oriented to person, oriented to place , oriented to time, oriented to situation, CN II-XII grossly intact. ABSENT: motor sensory deficit Psychiatric exam: PRESENT: appropriate affect, normal mood. ABSENT: homicidal ideation, suicidal ideation Skin exam: PRESENT: dry, intact, warm. ABSENT: cyanosis, rash Results Laboratory Results: 01/28/18 04:23 01/28/18 04:23 01/28/18 01/28/18 01/28/18 04:23 04:23 04:23 WBC 3.6 L RBC 2.72 L Hgb 9.2 L Hct 26.5 L MCV 97 MCH 33.8 H MCHC 34.7 RDW 16.7 H Plt Count 109 L Sodium 140.0 Potassium 3.1 L Chloride 103 Carbon Dioxide 29 Anion Gap 8 BUN 5 L Creatinine 0.80 Est GFR ( Amer) > 60 Est GFR (Non-Af Amer) > 60 Glucose 89 Calcium 7.2 L Magnesium 1.5 L Total Bilirubin 0.4 AST 53 ALT 56 Alkaline Phosphatase 103 Total Protein 4.5 L Albumin 2.7 L Impressions: Abdomen/Pelvis CT 01/23/18 00:00 IMPRESSION: 1. Findings compatible with acute pancreatitis. No evidence of pancreatic necrosis or peripancreatic fluid collection. 2. Hepatic steatosis. 3. Diverticulosis without evidence of diverticulitis. This exam was performed according to our departmental dose-optimization program, which includes automated exposure control, adjustment of the mA and/or kV according to patient size and/or use of iterative reconstruction technique. Abdomen Ultrasound 01/23/18 01:09 IMPRESSION: 1. Gallbladder sludge with gallbladder distention. No definite gallstones identified. 2. Hepatic steatosis. Catheter Placement 01/27/18 00:00 IMPRESSION: Removal of stones from the common bile duct. Fluoroscopy 01/27/18 00:00 IMPRESSION: Removal of stones from the common bile duct. Assessment & Plan - Diagnosis (1) Recurrent acute pancreatitis Is this a current diagnosis for this admission?: Yes (2) Hepatic steatosis Is this a current diagnosis for this admission?: Yes (3) HTN (hypertension) Qualifiers: Hypertension type: essential hypertension Qualified Code(s): I10 - Essential (primary) hypertension Is this a current diagnosis for this admission?: Yes (4) COPD (chronic obstructive pulmonary disease) Qualifiers: COPD type: unspecified COPD Qualified Code(s): J44.9 - Chronic obstructive pulmonary disease, unspecified Is this a current diagnosis for this admission?: Yes (5) Anemia of other chronic disease Is this a current diagnosis for this admission?: Yes (6) Transient thrombocytopenia Is this a current diagnosis for this admission?: Yes (7) Hypokalemia due to inadequate potassium intake Is this a current diagnosis for this admission?: Yes (8) Hypocalcemia Is this a current diagnosis for this admission?: Yes - Time Time Spent with patient: 25-34 minutes Medications reviewed and adjusted accordingly: Yes Anticipated discharge: Home Within: within 24 hours - Inpatient Certification Based on my medical assessment, after consideration of the patient's comorbidities, presenting symptoms, or acuity I expect that the services needed warrant INPATIENT care.: Yes I certify that my determination is in accordance with my understanding of Medicare's requirements for reasonable and necessary INPATIENT services [42 CFR 412.3e].: Yes Medical Necessity: Need Close Monitoring Due to Risk of Patient Decompensation, Need For IV Fluids, Need For Continuous Telemetry Monitoring, Risk of Complication if Not Cared For in Hospital 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
[2018-01-28] MEDS ORDERED: POTASSIUM CHLORIDE 10 MEQ TABLET.SA PO SCH (19:00)
[2018-01-28] MEDS: TRAZODONE HCL 50 MG TABLET PO SCH (23:13)
[2018-01-29] MEDS: FENTANYL CITRATE INJ/PF 100 MCG/2 ML AMPUL IV PRN ×4 (01:31→21:21)
--- NOTE | 2018-01-29 08:45 | PDOC PROGRESS REPORT ---
Subjective Progress Note for:: 01/29/18 Subjective:: Patient denied abdominal pain, nausea, vomiting or diarrhea. Tolerating mechanical soft consistency diet. No chest pain or difficulty with breathing. No fever or chills. Reason For Visit: RECURRENT PANCREATITIS, NAUSEA, VOMITING,DIZZINESS Physical Exam Vital Signs: Temp Pulse Resp BP Pulse Ox 97.8 F 56 L 18 108/62 97 01/29/18 07:43 01/29/18 07:43 01/29/18 07:43 01/29/18 07:43 01/29/18 07:43 Intake & Output 01/28/18 01/29/18 01/30/18 06:59 06:59 06:59 Intake Total 4110 4576 Balance 4110 4576 Physical Exam: General appearance: PRESENT: no acute distress, well-developed, well-nourished Head exam: PRESENT: atraumatic, normocephalic Eye exam: PRESENT: conjunctiva pink, EOMI, PERRLA. ABSENT: scleral icterus Mouth exam: PRESENT: moist Respiratory exam: PRESENT: clear to auscultation carroll Cardiovascular exam: PRESENT: RRR. ABSENT: diastolic murmur, rubs, systolic murmur GI/Abdominal exam: PRESENT: normal bowel sounds, soft ABSENT: distended, tenderness, guarding, mass, organomegaly, rebound Extremities exam: ABSENT: pedal edema Musculoskeletal exam: PRESENT: normal inspection Neurological exam: PRESENT: alert, awake, oriented to person, oriented to place , oriented to time, oriented to situation, CN II-XII grossly intact. ABSENT: motor sensory deficit Psychiatric exam: PRESENT: appropriate affect, normal mood. ABSENT: homicidal ideation, suicidal ideation Skin exam: PRESENT: dry, intact, warm. ABSENT: cyanosis, rash Results Laboratory Results: 01/28/18 04:23 01/28/18 04:23 01/28/18 04:23 Sodium 140.0 Potassium 3.1 L Chloride 103 Carbon Dioxide 29 Anion Gap 8 BUN 5 L Creatinine 0.80 Est GFR ( Amer) > 60 Est GFR (Non-Af Amer) > 60 Glucose 89 Calcium 7.2 L Magnesium 1.5 L Impressions: Abdomen/Pelvis CT 01/23/18 00:00 IMPRESSION: 1. Findings compatible with acute pancreatitis. No evidence of pancreatic necrosis or peripancreatic fluid collection. 2. Hepatic steatosis. 3. Diverticulosis without evidence of diverticulitis. This exam was performed according to our departmental dose-optimization program, which includes automated exposure control, adjustment of the mA and/or kV according to patient size and/or use of iterative reconstruction technique. Abdomen Ultrasound 01/23/18 01:09 IMPRESSION: 1. Gallbladder sludge with gallbladder distention. No definite gallstones identified. 2. Hepatic steatosis. Catheter Placement 01/27/18 00:00 IMPRESSION: Removal of stones from the common bile duct. Fluoroscopy 01/27/18 00:00 IMPRESSION: Removal of stones from the common bile duct. Assessment & Plan - Diagnosis (1) Recurrent acute pancreatitis Is this a current diagnosis for this admission?: Yes (2) Hepatic steatosis Is this a current diagnosis for this admission?: Yes (3) HTN (hypertension) Qualifiers: Hypertension type: essential hypertension Qualified Code(s): I10 - Essential (primary) hypertension Is this a current diagnosis for this admission?: Yes (4) COPD (chronic obstructive pulmonary disease) Qualifiers: COPD type: unspecified COPD Qualified Code(s): J44.9 - Chronic obstructive pulmonary disease, unspecified Is this a current diagnosis for this admission?: Yes (5) Anemia of other chronic disease Is this a current diagnosis for this admission?: Yes (6) Transient thrombocytopenia Is this a current diagnosis for this admission?: Yes (7) Hypokalemia due to inadequate potassium intake Is this a current diagnosis for this admission?: Yes (8) Hypocalcemia Is this a current diagnosis for this admission?: Yes - Time Time Spent with patient: 25-34 minutes Medications reviewed and adjusted accordingly: Yes Anticipated discharge: Home Within: within 24 hours - Inpatient Certification Based on my medical assessment, after consideration of the patient's comorbidities, presenting symptoms, or acuity I expect that the services needed warrant INPATIENT care.: Yes I certify that my determination is in accordance with my understanding of Medicare's requirements for reasonable and necessary INPATIENT services [42 CFR 412.3e].: Yes Medical Necessity: Need Close Monitoring Due to Risk of Patient Decompensation, Need For IV Fluids, Need For Continuous Telemetry Monitoring, Risk of Complication if Not Cared For in Hospital Post Hospital Care: D/C [facility] Well[facility] Coordinator Documentation - Plan Summary Plan Summary: Obtain BMP. Mag level. Advance diet to regular consistency. Continue all other current medication management.
[2018-01-29 10:20] LABS: HEMATOCRIT 28.3 % (37.9-51.0); HEMOGLOBIN 9.5 g/dL (13.5-17.0); MEAN CORPUSCULAR HEMOGLOBIN 33.1 pg (27.0-33.4); MEAN CORPUSCULAR HGB CONC 33.6 g/dL (32.0-36.0); MEAN CORPUSCULAR VOLUME 99 fl (80-97); PLATELET COUNT 124 10^3/uL (150-450); RED BLOOD COUNT 2.87 10^6/uL (4.35-5.55); RED CELL DISTRIBUTION WIDTH 17.3 % (11.5-14.0); WHITE BLOOD COUNT 2.8 10^3/uL (4.0-10.5)
[2018-01-29 10:45] LABS: ALANINE AMINOTRANSFERASE 47 U/L (21-72); ALBUMIN 2.8 g/dL (3.5-5.0); ALKALINE PHOSPHATASE 102 U/L (38-126); ANION GAP 6 (5-19); ASPARTATE AMINO TRANSFERASE 42 U/L (17-59); BILIRUBIN,DIRECT 0.2 mg/dL (0.0-0.4); BILIRUBIN,TOTAL 0.3 mg/dL (0.2-1.3); BLOOD UREA NITROGEN 6 mg/dL (7-20); CALCIUM 8.4 mg/dL (8.4-10.2); CARBON DIOXIDE 30 mmol/L (22-30); CHLORIDE 104 mmol/L (98-107); GLUCOSE 133 mg/dL (75-110); POTASSIUM 4.1 mmol/L (3.6-5.0); SODIUM 140.3 mmol/L (137-145); TOTAL PROTEIN 4.8 g/dL (6.3-8.2)
[2018-01-29] MEDS: ENOXAPARIN SODIUM INJ 40 MG/0.4 ML DISP.SYRIN SUBCUT SCH (11:20)
[2018-01-29] MEDS: SERTRALINE HCL 50 MG TABLET PO SCH (11:21)
[2018-01-29] MEDS: NICOTINE 21 MG/24 HR PATCH.TD24 TD SCH (11:21)
[2018-01-29] MEDS: NORMAL SALINE 1000 ML 1,000 ML IV PRN ×2 (13:20→23:39)
[2018-01-29] MEDS ORDERED: MAGNESIUM SULFATE/D5W 1 GM/100 ML RTUPB IV ONE (20:00)
[2018-01-29] MEDS: TRAZODONE HCL 50 MG TABLET PO SCH (23:38)
[2018-01-30] MEDS: FENTANYL CITRATE INJ/PF 100 MCG/2 ML AMPUL IV PRN (01:23)
[2018-01-30] MEDS: NICOTINE 21 MG/24 HR PATCH.TD24 TD SCH (10:09)
[2018-01-30] MEDS: NORMAL SALINE 1000 ML 1,000 ML IV PRN ×2 (10:09→20:13)
[2018-01-30] MEDS: TRAMADOL HCL 50 MG TABLET PO PRN ×2 (10:11→23:20)
[2018-01-30] MEDS: SERTRALINE HCL 50 MG TABLET PO SCH (10:11)
[2018-01-30] MEDS: ENOXAPARIN SODIUM INJ 40 MG/0.4 ML DISP.SYRIN SUBCUT SCH (10:12)
--- NOTE | 2018-01-30 16:48 | PDOC PROGRESS REPORT ---
Subjective Progress Note for:: 01/30/18 Subjective:: Patient reported recurrent episodes of nausea and abdominal pain since advance of his diet to regular consistency. No chest pain or difficulty with breathing. No fever or chills. Reason For Visit: RECURRENT PANCREATITIS, NAUSEA, VOMITING,DIZZINESS Physical Exam Vital Signs: Temp Pulse Resp BP Pulse Ox 97.9 F 61 18 126/83 H 99 01/30/18 11:34 01/30/18 11:34 01/30/18 11:34 01/30/18 11:34 01/30/18 11:34 Intake & Output 01/29/18 01/30/18 01/31/18 06:59 06:59 06:59 Intake Total 4576 4109 357 Balance 4576 4109 357 Weight 90.2 kg Physical Exam: General appearance: PRESENT: no acute distress, well-developed, well-nourished Head exam: PRESENT: atraumatic, normocephalic Eye exam: PRESENT: conjunctiva pink, EOMI, PERRLA. ABSENT: scleral icterus Mouth exam: PRESENT: moist Respiratory exam: PRESENT: clear to auscultation carroll Cardiovascular exam: PRESENT: RRR. ABSENT: diastolic murmur, rubs, systolic murmur GI/Abdominal exam: PRESENT: normal bowel sounds, soft ABSENT: distended, tenderness, guarding, mass, organomegaly, rebound Extremities exam: ABSENT: pedal edema Musculoskeletal exam: PRESENT: normal inspection Neurological exam: PRESENT: alert, awake, oriented to person, oriented to place , oriented to time, oriented to situation, CN II-XII grossly intact. ABSENT: motor sensory deficit Psychiatric exam: PRESENT: appropriate affect, normal mood. ABSENT: homicidal ideation, suicidal ideation Skin exam: PRESENT: dry, intact, warm. ABSENT: cyanosis, rash Results Laboratory Results: 01/29/18 09:56 01/29/18 09:56 01/30/18 04:47 Magnesium 2.1 Impressions: Abdomen/Pelvis CT 01/23/18 00:00 IMPRESSION: 1. Findings compatible with acute pancreatitis. No evidence of pancreatic necrosis or peripancreatic fluid collection. 2. Hepatic steatosis. 3. Diverticulosis without evidence of diverticulitis. This exam was performed according to our departmental dose-optimization program, which includes automated exposure control, adjustment of the mA and/or kV according to patient size and/or use of iterative reconstruction technique. Abdomen Ultrasound 01/23/18 01:09 IMPRESSION: 1. Gallbladder sludge with gallbladder distention. No definite gallstones identified. 2. Hepatic steatosis. Catheter Placement 01/27/18 00:00 IMPRESSION: Removal of stones from the common bile duct. Fluoroscopy 01/27/18 00:00 IMPRESSION: Removal of stones from the common bile duct. Assessment & Plan - Diagnosis (1) Recurrent acute pancreatitis Is this a current diagnosis for this admission?: Yes (2) Hepatic steatosis Is this a current diagnosis for this admission?: Yes (3) HTN (hypertension) Qualifiers: Hypertension type: essential hypertension Qualified Code(s): I10 - Essential (primary) hypertension Is this a current diagnosis for this admission?: Yes (4) COPD (chronic obstructive pulmonary disease) Qualifiers: COPD type: unspecified COPD Qualified Code(s): J44.9 - Chronic obstructive pulmonary disease, unspecified Is this a current diagnosis for this admission?: Yes (5) Anemia of other chronic disease Is this a current diagnosis for this admission?: Yes (6) Transient thrombocytopenia Is this a current diagnosis for this admission?: Yes (7) Hypokalemia due to inadequate potassium intake Is this a current diagnosis for this admission?: Yes (8) Hypocalcemia Is this a current diagnosis for this admission?: Yes - Time Time Spent with patient: 25-34 minutes Medications reviewed and adjusted accordingly: Yes Anticipated discharge: Home Within: within 24 hours - Inpatient Certification Based on my medical assessment, after consideration of the patient's comorbidities, presenting symptoms, or acuity I expect that the services needed warrant INPATIENT care.: Yes I certify that my determination is in accordance with my understanding of Medicare's requirements for reasonable and necessary INPATIENT services [42 CFR 412.3e].: Yes Medical Necessity: Need Close Monitoring Due to Risk of Patient Decompensation, Need For IV Fluids, Need For Continuous Telemetry Monitoring, Risk of Complication if Not Cared For in Hospital Post Hospital Care: D/C Baggage Security Checker Documentation - Plan Summary Plan Summary: Change food consistency to mechanical soft. Obtain Lipase, CBC, CMP in AM. D/C IV Fentayl usage. Start on Tramadol 50 mg po q6 hours prn for pain management.
[2018-01-30] MEDS: TRAZODONE HCL 50 MG TABLET PO SCH (23:17)
[2018-01-31 05:26] LABS: ABSOLUTE EOSINOPHILS # (AUTO) 0.1 10^3/uL (0.0-0.6); ABSOLUTE LYMPHOCYTES (AUTO) 1.1 10^3/uL (0.5-4.7); ABSOLUTE MONOCYTES (AUTO) 0.4 10^3/uL (0.1-1.4); ABSOLUTE NEUT (AUTO) 1.8 10^3/uL (1.7-8.2); BASOPHILS % (AUTO) 0.7 % (0-2); EOSINOPHILS % (AUTO) 2.2 % (0-6); HEMATOCRIT 25.2 % (37.9-51.0); HEMOGLOBIN 8.7 g/dL (13.5-17.0); LYMPHOCYTES % (AUTO) 31.3 % (13-45); MEAN CORPUSCULAR HEMOGLOBIN 33.2 pg (27.0-33.4); MEAN CORPUSCULAR HGB CONC 34.4 g/dL (32.0-36.0); MEAN CORPUSCULAR VOLUME 97 fl (80-97); MONOCYTES % (AUTO) 12.6 % (3-13); PLATELET COUNT 120 10^3/uL (150-450); RED CELL DISTRIBUTION WIDTH 16.2 % (11.5-14.0); SEGMENTED NEUTROPHILS % (AUTO) 53.2 % (42-78); TOTAL CELLS COUNTED % (AUTO) 100 %; WHITE BLOOD COUNT 3.4 10^3/uL (4.0-10.5)
[2018-01-31 05:44] LABS: ALANINE AMINOTRANSFERASE 52 U/L (21-72); ALBUMIN 2.7 g/dL (3.5-5.0); ALKALINE PHOSPHATASE 85 U/L (38-126); ANION GAP 5 (5-19); ASPARTATE AMINO TRANSFERASE 64 U/L (17-59); BILIRUBIN,DIRECT 0.2 mg/dL (0.0-0.4); BILIRUBIN,TOTAL 0.2 mg/dL (0.2-1.3); BLOOD UREA NITROGEN 10 mg/dL (7-20); CALCIUM 8.9 mg/dL (8.4-10.2); CARBON DIOXIDE 30 mmol/L (22-30); CHLORIDE 104 mmol/L (98-107); GLUCOSE 97 mg/dL (75-110); SODIUM 139.1 mmol/L (137-145); TOTAL PROTEIN 4.6 g/dL (6.3-8.2)
[2018-01-31] MEDS: TRAMADOL HCL 50 MG TABLET PO PRN (10:45)
[2018-01-31] MEDS: SERTRALINE HCL 50 MG TABLET PO SCH (10:45)
[2018-01-31] MEDS: NICOTINE 21 MG/24 HR PATCH.TD24 TD SCH (10:46)
[2018-01-31] MEDS: ENOXAPARIN SODIUM INJ 40 MG/0.4 ML DISP.SYRIN SUBCUT SCH (10:48)
[2018-01-31 12:51] VITALS: BP 131/73
== END 2018-01-31 13:10 | disposition home or self-care (01) | DRG 440 ==
LOC: ER 22:34 → UNDOADMOB 01-23 06:37 → OBSVTOIN 01-23 06:37 → EH 01-23 06:37 → 3N 01-23 08:40 → EH 01-23 08:40
PROVIDERS: ADMIT Internal Medicine Geriatric Medicine; ATTEND Internal Medicine Geriatric Medicine
PROC: 0F798ZZ Dilation of Common Bile Duct, Via Natural or Artificial Opening Endoscopic (ICD-10-PCS; principal; 2018-01-27 17:00)
DX: K85.80 Other acute pancreatitis without necrosis or infection (principal); D69.6 Thrombocytopenia, unspecified; K76.0 Fatty (change of) liver, not elsewhere classified; E83.51 Hypocalcemia; D63.8 Anemia in other chronic diseases classified elsewhere; E87.6 Hypokalemia; J44.9 Chronic obstructive pulmonary disease, unspecified; I10 Essential (primary) hypertension; Z79.899 Other long term (current) drug therapy; F17.200 Nicotine dependence, unspecified, uncomplicated; Z88.8 Allergy status to other drugs, medicaments and biological substances
CPT/HCPCS: 36415; 43262; 43264; 74177; 74328; 76705; 80048; 80053; 80076; 82150; 82565; 82962; 83690; 83735; 85025; 85027; 85610; 94640; 96365; 96375; 96376; 99285; G0378; J0171; J1610; J1650; J2250; J2310; J2405; J3010; J3475; J3480; J3490; J7030; J7620; S0028

== ENCOUNTER → 2018-01-22 | Outpatient (CLI) | payer MEDICARE ==
[2018-01-22 19:52] LABS: ABSOLUTE LYMPHOCYTES (AUTO) 0.8 10^3/uL (0.5-4.7); ABSOLUTE MONOCYTES (AUTO) 0.5 10^3/uL (0.1-1.4); BASOPHILS % (AUTO) 0.6 % (0-2); EOSINOPHILS % (AUTO) 0.2 % (0-6); HEMATOCRIT 35.7 % (37.9-51.0); HEMOGLOBIN 12.1 g/dL (13.5-17.0); LYMPHOCYTES % (AUTO) 10.7 % (13-45); MEAN CORPUSCULAR HEMOGLOBIN 32.8 pg (27.0-33.4); MEAN CORPUSCULAR HGB CONC 33.8 g/dL (32.0-36.0); MEAN CORPUSCULAR VOLUME 97 fl (80-97); MONOCYTES % (AUTO) 6.5 % (3-13); PLATELET COUNT 116 10^3/uL (150-450); RED BLOOD COUNT 3.68 10^6/uL (4.35-5.55); RED CELL DISTRIBUTION WIDTH 16.1 % (11.5-14.0); TOTAL CELLS COUNTED % (AUTO) 100 %; WHITE BLOOD COUNT 7.3 10^3/uL (4.0-10.5)
[2018-01-22 20:08] LABS: ALANINE AMINOTRANSFERASE 69 U/L (21-72); ALBUMIN 3.4 g/dL (3.5-5.0); ALKALINE PHOSPHATASE 139 U/L (38-126); AMYLASE 95 U/L (30-110); ANION GAP 11 (5-19); ASPARTATE AMINO TRANSFERASE 92 U/L (17-59); BILIRUBIN,DIRECT 1.5 mg/dL (0.0-0.4); BILIRUBIN,TOTAL 3.9 mg/dL (0.2-1.3); BLOOD UREA NITROGEN 22 mg/dL (7-20); CALCIUM 9.2 mg/dL (8.4-10.2); CARBON DIOXIDE 26 mmol/L (22-30); CHLORIDE 101 mmol/L (98-107); GLUCOSE 140 mg/dL (75-110); LIPASE 485.8 U/L (23-300); SODIUM 138.3 mmol/L (137-145)
== END ==
LOC: LAB 19:28
PROVIDERS: ATTEND Internal Medicine Geriatric Medicine
DX: K86.1 Other chronic pancreatitis (principal)
CPT/HCPCS: 36415; 80053; 82150; 83690; 85025

== ENCOUNTER 2018-04-29 19:05 | Inpatient (IN) | payer MEDICARE ==
[2018-04-29] MEDS ORDERED: ONDANSETRON HCL INJ/PF 4 MG/2 ML SDV IV PRN (20:08)
[2018-04-29 22:25] LABS: ABSOLUTE BASOPHILS # (AUTO) 0.1 10^3/uL (0.0-0.2); ABSOLUTE EOSINOPHILS # (AUTO) 0.2 10^3/uL (0.0-0.6); ABSOLUTE LYMPHOCYTES (AUTO) 0.8 10^3/uL (0.5-4.7); ABSOLUTE MONOCYTES (AUTO) 0.9 10^3/uL (0.1-1.4); ABSOLUTE NEUT (AUTO) 4.3 10^3/uL (1.7-8.2); BASOPHILS % (AUTO) 0.8 % (0-2); EOSINOPHILS % (AUTO) 3.3 % (0-6); HEMATOCRIT 37.4 % (37.9-51.0); LYMPHOCYTES % (AUTO) 13.2 % (13-45); MEAN CORPUSCULAR HEMOGLOBIN 36.7 pg (27.0-33.4); MEAN CORPUSCULAR HGB CONC 34.8 g/dL (32.0-36.0); MEAN CORPUSCULAR VOLUME 105 fl (80-97); PLATELET COUNT 158 10^3/uL (150-450); RED BLOOD COUNT 3.55 10^6/uL (4.35-5.55); RED CELL DISTRIBUTION WIDTH 16.9 % (11.5-14.0); SEGMENTED NEUTROPHILS % (AUTO) 68.7 % (42-78); TOTAL CELLS COUNTED % (AUTO) 100 %; WHITE BLOOD COUNT 6.3 10^3/uL (4.0-10.5)
--- NOTE | 2018-04-29 22:27 | PDOC H&P ---
History of Present Illness Admission Date/PCP: 04/29/18 19:05 ROXIE ROBBYCrystal Patient complains of: Abdominal pain History of Present Illness: ESTRELLA GAONA is a 53 year old male known to my practice who presented to the office today with new onset abdominal pain over last 3 to 7 days. Patient localized pain to right upper quadrant and left flank regions. He described pain as stabbing, cramping and as if something pushing inside. He rated ain at 8 -9 / 10 and intermittent in occurrence. He reported associated poor appetite but denied significant nausea or vomiting. He stated tthat his pain has gradually worsen leading to seeking attention today.Nothing relieved his pain. He believes that his pain is due to his recurrent pancreatitis. He denied recent alcohol consumption. He has history of gallbladder problem. He denied any fever or chills. No shortness of breathe or chest pain. No dysuria or hematuria. Past Medical History Cardiac Medical History: Reports: Hypertension Pulmonary Medical History: Reports: Chronic Obstructive Pulmonary Disease (COPD) Neurological Medical History: Denies: Seizures GI Medical History: Reports: Other - Gallbladder sludge, Hepatosteatosis Psychiatric Medical History: Reports: Depression, General Anxiety Disorder, Tobacco Dependency Past Surgical History Past Surgical History: Reports: Appendectomy, Tonsillectomy Social History Smoking Status: Current Every Day Smoker Cigarettes Packs Per Day: 1 Number of Years Smokin Frequency of Alcohol Use: None Hx Recreational Drug Use: No Drugs: None Hx Prescription Drug Abuse: No - Advance Directive Resuscitation Status: Full Code Family History Family History: Reviewed & Not Pertinent Parental Family History Reviewed: Yes Children Family History Reviewed: Yes Sibling(s) Family History Reviewed.: Yes Medication/Allergy Home Medications: Albuterol Sulfate [Proair Respiclick] 2 puff IH Q6HP PRN 01/23/18 Fluticasone Propionate [Flonase Nasal [place] 50 Mcg/[place] 16 gm] 2 sprays NASL DAILY 01/23/18 Ipratropium/Albuterol Sulfate [Duoneb 3 ml Ampul] 3 ml NEB RTQ6HP PRN 01/23/18 Losartan Potassium [Cozaar 50 mg Tablet] 50 mg PO DAILY 01/23/18 Nicotine [Nicoderm 21 mg/24 Hr Transderm Patch] 1 patch TD DAILY 01/23/18 Sertraline HCl [Zoloft] 100 mg PO DAILY 01/23/18 Trazodone HCl [Desyrel] 300 mg PO QHS 01/23/18 Tramadol HCl [Ultram 50 mg Tablet] 50 mg PO Q6HP PRN #30 tablet 01/31/18 Allergies/Adverse Reactions: hydrocodone [From Lortab] Allergy (Verified 01/23/18 04:58) hydroxyzine Allergy (Verified 01/23/18 04:58) zolpidem [From Ambien] Allergy (Verified 01/23/18 04:58) Review of Systems Constitutional: PRESENT: anorexia. ABSENT: as per HPI, chills, fatigue, fever(s ), headache(s), night sweats, weakness, weight gain, weight loss, other Nose, Mouth, and Throat: ABSENT: as per HPI, headache(s), mouth pain, sore throat, vertigo, other Cardiovascular: ABSENT: chest pain, dyspnea on exertion, edema, orthropnea, palpitations Gastrointestinal: PRESENT: abdominal pain. ABSENT: as per HPI, bloating, coffee ground emesis, constipation, diarrhea, dysphagia, heartburn, hematemesis , hematochezia, melena, nausea, vomiting, other Genitourinary: ABSENT: dysuria, hematuria Musculoskeletal: ABSENT: joint swelling Integumentary: ABSENT: rash, wounds Neurological: ABSENT: abnormal gait, abnormal speech, confusion, dizziness, focal weakness, syncope Psychiatric: ABSENT: anxiety, depression, homidical ideation, suicidal ideation Endocrine: ABSENT: cold intolerance, heat intolerance, polydipsia, polyuria Hematologic/Lymphatic: ABSENT: easy bleeding, easy bruising, lymphadenopathy Allergic/Immunologic: ABSENT: seasonal rhinorrhea Physical Exam Vital Signs: Temp Pulse Resp BP Pulse Ox 99.7 F 95 18 133/85 H 97 04/29/18 19:31 04/29/18 19:31 04/29/18 19:31 04/29/18 19:31 04/29/18 19:31 Intake & Output 04/28/18 04/29/18 04/30/18 06:59 06:59 06:59 Weight 83.461 kg General appearance: PRESENT: mild distress - due to ongoing abdominal pain, well -developed, well-nourished Head exam: PRESENT: atraumatic, normocephalic Eye exam: PRESENT: conjunctiva pink, EOMI, PERRLA. ABSENT: scleral icterus Ear exam: PRESENT: normal external ear exam Mouth exam: PRESENT: moist, tongue midline Teeth exam: ABSENT: dental caries, dental tenderness, edentulous, poor dentation , other Throat exam: ABSENT: post pharyngeal erythema, tonsillar erythema, tonsillar exudate, tonsillogmegaly, other Neck exam: PRESENT: full ROM. ABSENT: carotid bruit, JVD, lymphadenopathy, thyromegaly Respiratory exam: PRESENT: clear to auscultation carroll Cardiovascular exam: PRESENT: RRR. ABSENT: diastolic murmur, rubs, systolic murmur Pulses: PRESENT: normal dorsalis pedis pul, +2 pedal pulses bilateral Vascular exam: PRESENT: normal capillary refill GI/Abdominal exam: PRESENT: guarding, rebound, tenderness - RUQ, Left flank region to deep palpation Rectal exam: PRESENT: deferred Extremities exam: PRESENT: pedal edema Musculoskeletal exam: PRESENT: normal inspection Neurological exam: PRESENT: alert, awake, oriented to person, oriented to place , oriented to time, oriented to situation, CN II-XII grossly intact. ABSENT: motor sensory deficit Psychiatric exam: PRESENT: appropriate affect, normal mood. ABSENT: homicidal ideation, suicidal ideation Skin exam: PRESENT: dry, intact, warm. ABSENT: cyanosis, rash Results Laboratory Results: No laboratory result is available on [employer] at the time of my documentation. Assessment & Plan - Diagnosis (1) Abdominal pain Qualifiers: Abdominal location: right upper quadrant Qualified Code(s): R10.11 - Right upper quadrant pain Is this a current diagnosis for this admission?: Yes Plan: See admitting attending physician orders. (2) Gallbladder sludge Is this a current diagnosis for this admission?: Yes Plan: See admitting attending physician orders. (3) History of pancreatitis Is this a current diagnosis for this admission?: Yes Plan: See admitting attending physician orders. (4) HTN (hypertension) Qualifiers: Hypertension type: essential hypertension Qualified Code(s): I10 - Essential (primary) hypertension (5) COPD (chronic obstructive pulmonary disease) Qualifiers: COPD type: unspecified COPD Qualified Code(s): J44.9 - Chronic obstructive pulmonary disease, unspecified Is this a current diagnosis for this admission?: Yes Plan: See admitting attending physician orders. (6) Mixed anxiety and depressive disorder Is this a current diagnosis for this admission?: Yes Plan: See admitting attending physician orders. (7) Persistent insomnia Is this a current diagnosis for this admission?: Yes Plan: See admitting attending physician orders. (8) Tobacco dependence Is this a current diagnosis for this admission?: Yes Plan: See admitting attending physician orders. - Time Time Spent: 50 to 70 Minutes Medications reviewed and adjusted accordingly: Yes Anticipated discharge: Home Within: within 48 hours - Plan Summary Plan Summary: See admitting attending physician orders.
[2018-04-29 22:44] LABS: ALANINE AMINOTRANSFERASE 70 U/L (21-72); ALBUMIN 3.3 g/dL (3.5-5.0); ALKALINE PHOSPHATASE 149 U/L (38-126); AMYLASE 216 U/L (30-110); ANION GAP 9 (5-19); ASPARTATE AMINO TRANSFERASE 98 U/L (17-59); BILIRUBIN,DIRECT 0.5 mg/dL (0.0-0.4); BILIRUBIN,TOTAL 1.2 mg/dL (0.2-1.3); BLOOD UREA NITROGEN 14 mg/dL (7-20); CALCIUM 8.7 mg/dL (8.4-10.2); CARBON DIOXIDE 32 mmol/L (22-30); CHLORIDE 98 mmol/L (98-107); GLUCOSE 100 mg/dL (75-110); LIPASE 668.8 U/L (23-300); SODIUM 139.1 mmol/L (137-145); TOTAL PROTEIN 5.8 g/dL (6.3-8.2)
[2018-04-29] MEDS: NORMAL SALINE 1000 ML 1,000 ML IV PRN (23:17)
[2018-04-29] MEDS: FENTANYL CITRATE INJ/PF 100 MCG/2 ML AMPUL IV PRN (23:18)
--- NOTE | 2018-04-30 00:27 | RADIOLOGY REPORT (SQ) ---
EXAM DESCRIPTION: US ABDOMEN DOPPLER COMPLETED DATE/TME: 04/29/2018 00:00 CLINICAL HISTORY: Abdominal pain COMPARISON: 01/23/2018 TECHNIQUE: Real-time sonographic images of the abdomen were obtained using a curved multihertz transducer. FINDINGS: The visualized portions of the pancreas are unremarkable. The visualized portions of the aorta are unremarkable. IVC not well evaluated due to overlying structures. The liver has normal contour and increased echogenicity. The common bile duct measures 0.2 cm. Hepatopedal flow in the portal vein confirmed with color and spectral Doppler imaging. Mild layering debris in the gallbladder lumen without echogenic shadowing focus identified. No wall thickening or pericholecystic fluid. The right kidney measures 11.0 cm in length. The left kidney measures 10.6 cm in length. No solid renal mass, shadowing renal calculi, or hydronephrosis. The spleen measures 12.2 cm in length.No abnormality of the spleen identified. IMPRESSION: 1. Gallbladder sludge. No shadowing gallstones identified. 2. Hepatic steatosis. 3. Mild splenomegaly.
[2018-04-30] MEDS ORDERED: POTASSI CL 20 MEQ/50 ML RIDER 40 MEQ/100 ML RTUPB IV ONE (01:00)
[2018-04-30] MEDS: POTASSIUM CHLORIDE 20 MEQ/50 ML RTU IV SCH ×2 (01:10→04:05)
[2018-04-30] MEDS: IPRATROPIUM/ALBUTEROL 0.5-2.5 MG/3 ML AMPUL NEB PRN ×2 (02:00→21:23)
[2018-04-30] MEDS: FENTANYL CITRATE INJ/PF 100 MCG/2 ML AMPUL IV PRN ×5 (03:37→23:28)
[2018-04-30] MEDS ORDERED: ROCURONIUM BROMIDE INJ 50 MG/5 ML VIAL IV ONE (08:12)
[2018-04-30] MEDS ORDERED: GLYCOPYRROLATE 1 MG/5 ML SYRINGE ONE (08:12)
[2018-04-30] MEDS ORDERED: NEOSTIGMINE METHYLSULFATE 10 MG/10 ML VIAL ONE (08:12)
[2018-04-30] MEDS ORDERED: METOCLOPRAMIDE HCL INJ/PF 10 MG/2 ML SDV ONE (08:12)
[2018-04-30] MEDS ORDERED: KETOROLAC TROMETHAMINE 60 MG/2 ML SDV ONE (08:12)
[2018-04-30] MEDS ORDERED: DEXAMETHASONE SOD PHOSPHATE INJ 4 MG/1 ML VIAL ONE (08:12)
[2018-04-30] MEDS ORDERED: LIDOCAINE 2% INJ-PF (20 MG/ML) 2 ML AMPUL ONE (08:12)
[2018-04-30] MEDS ORDERED: ONDANSETRON HCL INJ/PF 4 MG/2 ML SDV ONE (08:12)
[2018-04-30] MEDS ORDERED: SUCCINYLCHOLINE CHLORIDE INJ 200 MG/10 ML VIAL ONE (08:12)
[2018-04-30] MEDS: LANSOPRAZOLE 30 MG TAB.RAP.DR PO SCH (09:54)
[2018-04-30] MEDS: ENOXAPARIN SODIUM INJ 40 MG/0.4 ML DISP.SYRIN SUBCUT SCH (09:55)
[2018-04-30] MEDS ORDERED: DEXTROSE 5%-WATER 250 ML with PHENYLEPHRINE HCL 40 MG IV PRN ×2 (10:03)
[2018-04-30] MEDS: NORMAL SALINE 1000 ML 1,000 ML IV PRN (15:22)
[2018-04-30] MEDS ORDERED: DEXTROSE 40% GEL 15 GM TUBE PO PRN ×2 (18:51)
[2018-04-30] MEDS ORDERED: GLUCAGON,HUMAN RECOMB 1 MG INJ SUBCUT PRN (18:51)
[2018-04-30] MEDS ORDERED: DEXTROSE 50%-WATER 25 GM/50 ML DISP.SYRIN IV PRN ×2 (18:51)
--- NOTE | 2018-04-30 19:11 | PDOC PROGRESS REPORT ---
Subjective Progress Note for:: 04/30/18 Subjective:: Patient continue to complain about RUQ pain. Remain on IV Fentanyl for pain management. Denied chest pain or difficulty with breathing. Nausea and poor appetite remain a problem. No vomiting. No fever or chills. Reason For Visit: ABDOMINAL PAIN RUQ,H/O GALLBLADDER DISTENTION AND Physical Exam Vital Signs: Temp Pulse Resp BP Pulse Ox 98.7 F 65 20 116/83 100 04/30/18 15:54 04/30/18 15:54 04/30/18 15:54 04/30/18 15:54 04/30/18 15:54 Intake & Output 04/29/18 04/30/18 05/01/18 06:59 06:59 06:59 Intake Total 600 1360 Balance 600 1360 Weight 84.8 kg General appearance: PRESENT: mild distress - due to ongoing RUQ expressed pain Head exam: PRESENT: atraumatic, normocephalic Mouth exam: PRESENT: moist Respiratory exam: PRESENT: clear to auscultation carroll Cardiovascular exam: PRESENT: RRR. ABSENT: diastolic murmur, rubs, systolic murmur Vascular exam: ABSENT: pallor GI/Abdominal exam: PRESENT: guarding - minimal to deep palpation, normal bowel sounds, tenderness - RUQ region Extremities exam: ABSENT: pedal edema Musculoskeletal exam: PRESENT: normal inspection Neurological exam: PRESENT: alert, awake, oriented to person, oriented to place , oriented to time, oriented to situation, CN II-XII grossly intact. ABSENT: motor sensory deficit Psychiatric exam: PRESENT: appropriate affect, normal mood. ABSENT: homicidal ideation, suicidal ideation Skin exam: PRESENT: dry, intact, warm. ABSENT: cyanosis, rash Results Laboratory Results: 04/29/18 22:17 04/29/18 22:17 04/29/18 04/29/18 04/29/18 22:17 22:17 22:17 WBC 6.3 RBC 3.55 L Hgb 13.0 L Hct 37.4 L MCV 105 H MCH 36.7 H MCHC 34.8 RDW 16.9 H Plt Count 158 Seg Neutrophils % 68.7 Lymphocytes % 13.2 Monocytes % 14.0 H Eosinophils % 3.3 Basophils % 0.8 Absolute Neutrophils 4.3 Absolute Lymphocytes 0.8 Absolute Monocytes 0.9 Absolute Eosinophils 0.2 Absolute Basophils 0.1 Sodium 139.1 Potassium 3.0 L* Chloride 98 Carbon Dioxide 32 H Anion Gap 9 BUN 14 Creatinine 0.77 Est GFR ( Amer) > 60 Est GFR (Non-Af Amer) > 60 Glucose 100 Calcium 8.7 Magnesium 1.6 Total Bilirubin 1.2 AST 98 H ALT 70 Alkaline Phosphatase 149 H Total Protein 5.8 L Albumin 3.3 L Amylase 216 H Lipase 668.8 H Impressions: Abdomen Ultrasound 04/29/18 00:00 IMPRESSION: 1. Gallbladder sludge. No shadowing gallstones identified. 2. Hepatic steatosis. 3. Mild splenomegaly. Assessment & Plan - Diagnosis (1) Abdominal pain Qualifiers: Abdominal location: right upper quadrant Qualified Code(s): R10.11 - Right upper quadrant pain Is this a current diagnosis for this admission?: Yes Plan: See attending physician orders. In view of his US findings and lab results there is concern for possible gallbladder disease process and acute recurrent pancreatitis. I will make patient completely NPO and monitor response with serial monitoring of his Lipase and Amylase level. (2) Gallbladder sludge Is this a current diagnosis for this admission?: Yes Plan: Patient may need surgical intervention but his elevated Lipase and Amylase suggested ongoing inflammation of the pancrease and less likely GI pathology process response. (3) History of pancreatitis Is this a current diagnosis for this admission?: Yes Plan: There is concern for recurrent acute pancreatitis. Patient vehemently denied alcohol abuse or ingestion recently. His persistent gallbladder sludge may account for his drainage problem and recurrent pancreatitis. (4) HTN (hypertension) Qualifiers: Hypertension type: essential hypertension Qualified Code(s): I10 - Essential (primary) hypertension Is this a current diagnosis for this admission?: Yes Plan: See attending physician orders. (5) COPD (chronic obstructive pulmonary disease) Qualifiers: COPD type: unspecified COPD Qualified Code(s): J44.9 - Chronic obstructive pulmonary disease, unspecified Is this a current diagnosis for this admission?: Yes Plan: See attending physician orders. (6) Mixed anxiety and depressive disorder Is this a current diagnosis for this admission?: Yes Plan: See attending physician orders. Patient's father earlier today while on admission at this facility following cardiac arrest. Bereavement counseling was done at bedside during this visit. (7) Persistent insomnia Is this a current diagnosis for this admission?: Yes Plan: See attending physician orders. (8) Tobacco dependence Is this a current diagnosis for this admission?: Yes Plan: See attending physicians orders. - Time Time Spent with patient: 35 or more minutes Medications reviewed and adjusted accordingly: Yes Anticipated discharge: Home Within: Other - Inpatient Certification Based on my medical assessment, after consideration of the patient's comorbidities, presenting symptoms, or acuity I expect that the services needed warrant INPATIENT care.: Yes I certify that my determination is in accordance with my understanding of Medicare's requirements for reasonable and necessary INPATIENT services [42 CFR 412.3e].: Yes Medical Necessity: Need Close Monitoring Due to Risk of Patient Decompensation, Need For IV Fluids, Need for Surgery - possible after consultation with telecommunications professional surgicalist, Risk of Complication if Not Cared For in Hospital Post Hospital Care: D/C Shirt Marker Documentation - Plan 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
[2018-04-30] MEDS ORDERED: MAGNESIUM SULFATE/D5W 1 GM/100 ML RTUPB IV ONE (20:00)
[2018-05-01] MEDS: FENTANYL CITRATE INJ/PF 100 MCG/2 ML AMPUL IV PRN ×4 (03:35→22:11)
[2018-05-01] MEDS: NORMAL SALINE 1000 ML 1,000 ML IV PRN ×2 (03:35→20:27)
[2018-05-01 07:01] LABS: ABSOLUTE EOSINOPHILS # (AUTO) 0.2 10^3/uL (0.0-0.6); ABSOLUTE LYMPHOCYTES (AUTO) 0.9 10^3/uL (0.5-4.7); ABSOLUTE MONOCYTES (AUTO) 0.7 10^3/uL (0.1-1.4); ABSOLUTE NEUT (AUTO) 3.3 10^3/uL (1.7-8.2); BASOPHILS % (AUTO) 0.8 % (0-2); EOSINOPHILS % (AUTO) 4.5 % (0-6); HEMATOCRIT 34.8 % (37.9-51.0); HEMOGLOBIN 12.1 g/dL (13.5-17.0); LYMPHOCYTES % (AUTO) 17.5 % (13-45); MEAN CORPUSCULAR HEMOGLOBIN 36.8 pg (27.0-33.4); MEAN CORPUSCULAR HGB CONC 34.8 g/dL (32.0-36.0); MEAN CORPUSCULAR VOLUME 106 fl (80-97); MONOCYTES % (AUTO) 13.4 % (3-13); PLATELET COUNT 137 10^3/uL (150-450); RED BLOOD COUNT 3.29 10^6/uL (4.35-5.55); RED CELL DISTRIBUTION WIDTH 16.3 % (11.5-14.0); SEGMENTED NEUTROPHILS % (AUTO) 63.8 % (42-78); TOTAL CELLS COUNTED % (AUTO) 100 %; WHITE BLOOD COUNT 5.2 10^3/uL (4.0-10.5)
[2018-05-01 07:13] LABS: ALANINE AMINOTRANSFERASE 71 U/L (21-72); ALBUMIN 2.9 g/dL (3.5-5.0); ALKALINE PHOSPHATASE 133 U/L (38-126); AMYLASE 219 U/L (30-110); ANION GAP 9 (5-19); ASPARTATE AMINO TRANSFERASE 100 U/L (17-59); BILIRUBIN,DIRECT 0.8 mg/dL (0.0-0.4); BILIRUBIN,TOTAL 1.5 mg/dL (0.2-1.3); BLOOD UREA NITROGEN 7 mg/dL (7-20); CALCIUM 8.3 mg/dL (8.4-10.2); CARBON DIOXIDE 30 mmol/L (22-30); CHLORIDE 102 mmol/L (98-107); CHOLESTEROL 129.33 mg/dL (0-200); GLUCOSE 94 mg/dL (75-110); POTASSIUM 3.5 mmol/L (3.6-5.0); SODIUM 140.5 mmol/L (137-145); TOTAL PROTEIN 5.4 g/dL (6.3-8.2); TRIGLYCERIDES 148 mg/dL (<150)
[2018-05-01 07:24] LABS: DIRECT LDL 92 mg/dL (<100)
--- NOTE | 2018-05-01 08:13 | PDOC PROGRESS REPORT ---
Subjective Progress Note for:: 05/01/18 Subjective:: Patient continue RUQ pain. Remain NPO awaiting surgicalist evaluation. No nausea or vomiting. Denied chest pain or difficulty with breathing. No fever or chills. Reason For Visit: ABDOMINAL PAIN RUQ,H/O GALLBLADDER DISTENTION AND Physical Exam Vital Signs: Temp Pulse Resp BP Pulse Ox 98.4 F 62 16 120/86 H 98 05/01/18 07:34 05/01/18 07:34 05/01/18 07:34 05/01/18 07:34 05/01/18 07:34 Intake & Output 04/30/18 05/01/18 05/02/18 06:59 06:59 06:59 Intake Total 600 3760 Balance 600 3760 Weight 84.8 kg 86.1 kg Physical Exam: General appearance: PRESENT: mild distress - due to ongoing RUQ expressed pain Head exam: PRESENT: atraumatic, normocephalic Mouth exam: PRESENT: moist Respiratory exam: PRESENT: clear to auscultation carroll Cardiovascular exam: PRESENT: RRR. ABSENT: diastolic murmur, rubs, systolic murmur Vascular exam: ABSENT: pallor GI/Abdominal exam: PRESENT: guarding - minimal to deep palpation, normal bowel sounds, tenderness - RUQ region Extremities exam: ABSENT: pedal edema Musculoskeletal exam: PRESENT: normal inspection Neurological exam: PRESENT: alert, awake, oriented to person, oriented to place , oriented to time, oriented to situation, CN II-XII grossly intact. ABSENT: motor sensory deficit Psychiatric exam: PRESENT: appropriate affect, normal mood. ABSENT: homicidal ideation, suicidal ideation Skin exam: PRESENT: dry, intact, warm. ABSENT: cyanosis, rash Results Laboratory Results: 05/01/18 06:28 05/01/18 06:28 04/30/18 05/01/18 05/01/18 19:38 06:28 06:28 WBC 5.2 RBC 3.29 L Hgb 12.1 L Hct 34.8 L MCV 106 H MCH 36.8 H MCHC 34.8 RDW 16.3 H Plt Count 137 L Seg Neutrophils % 63.8 Lymphocytes % 17.5 Monocytes % 13.4 H Eosinophils % 4.5 Basophils % 0.8 Absolute Neutrophils 3.3 Absolute Lymphocytes 0.9 Absolute Monocytes 0.7 Absolute Eosinophils 0.2 Absolute Basophils 0.0 Sodium 140.5 Potassium 3.5 L Chloride 102 Carbon Dioxide 30 Anion Gap 9 BUN 7 Creatinine 0.60 Est GFR ( Amer) > 60 Est GFR (Non-Af Amer) > 60 Glucose 94 Calcium 8.3 L Magnesium 1.6 Total Bilirubin 1.5 H AST 100 H ALT 71 Alkaline Phosphatase 133 H Total Protein 5.4 L Albumin 2.9 L Triglycerides 148 Cholesterol 129.33 LDL Cholesterol Direct 92 VLDL Cholesterol 30.0 HDL Cholesterol 21 L Amylase 219 H Lipase 1149.0 H Impressions: Abdomen Ultrasound 04/29/18 00:00 IMPRESSION: 1. Gallbladder sludge. No shadowing gallstones identified. 2. Hepatic steatosis. 3. Mild splenomegaly. Assessment & Plan - Diagnosis (1) Abdominal pain Qualifiers: Abdominal location: right upper quadrant Qualified Code(s): R10.11 - Right upper quadrant pain Is this a current diagnosis for this admission?: Yes (2) Gallbladder sludge Is this a current diagnosis for this admission?: Yes (3) History of pancreatitis Is this a current diagnosis for this admission?: Yes (4) HTN (hypertension) Qualifiers: Hypertension type: essential hypertension Qualified Code(s): I10 - Essential (primary) hypertension Is this a current diagnosis for this admission?: Yes (5) COPD (chronic obstructive pulmonary disease) Qualifiers: COPD type: unspecified COPD Qualified Code(s): J44.9 - Chronic obstructive pulmonary disease, unspecified Is this a current diagnosis for this admission?: Yes (6) Mixed anxiety and depressive disorder Is this a current diagnosis for this admission?: Yes (7) Persistent insomnia Is this a current diagnosis for this admission?: Yes (8) Tobacco dependence Is this a current diagnosis for this admission?: Yes - Time Time Spent with patient: 25-34 minutes Medications reviewed and adjusted accordingly: Yes Anticipated discharge: Home Within: Other - Inpatient Certification Based on my medical assessment, after consideration of the patient's comorbidities, presenting symptoms, or acuity I expect that the services needed warrant INPATIENT care.: Yes I certify that my determination is in accordance with my understanding of Medicare's requirements for reasonable and necessary INPATIENT services [42 CFR 412.3e].: Yes Medical Necessity: Need Close Monitoring Due to Risk of Patient Decompensation, Need For IV Fluids, Need for Pain Control, Need for Surgery, Risk of Complication if Not Cared For in Hospital 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 Maintain NPO status. Follow up on surgicalist evaluation and recommendations.
[2018-05-01] MEDS: ENOXAPARIN SODIUM INJ 40 MG/0.4 ML DISP.SYRIN SUBCUT SCH (09:02)
[2018-05-01] MEDS: LANSOPRAZOLE 30 MG TAB.RAP.DR PO SCH (09:04)
[2018-05-01] MEDS: POTASSI CL 20 MEQ/50 ML RIDER 20 MEQ/50 ML RTUPB IV SCH ×3 (09:05→17:57)
--- NOTE | 2018-05-01 10:25 | PDOC CONSULTATION ---
Consultation Consult Date: 05/01/18 Attending physician:: ROXIE HOOD Consult reason:: Gallbladder History of Present Illness Admission Date/PCP: 04/29/18 19:05 ROXIE HOOD Patient complains of: Abdominal pain History of Present Illness: ESTRELLA GAONA is a 53 year old male Admitted to the hospital 3 days ago for recurrent abdominal pain nausea vomiting diarrhea. Patient has a long history of intermittent, recurrent acute pancreatitis, without complication, dating back to 2013. Previously patient had a history of alcohol liver and pancreatic disease but has been alcohol free for 3-1/2 years. He has had episodes of pancreatitis in 2013, 2016 and 2018. Has had gallbladder ultrasonography showing sludge going back to 2017. 3 months ago he underwent ERCP sphincterotomy and extraction of sludge from the common bile duct by Dr. Jelani Wheeler for hyperbilirubinemia, and recurrent pancreatitis. A pancreatogram was not obtained. Patient has no history of pancreatic pseudocyst abscess phlegmon etc. His back in the hospital with recurrent pain. Bowel movements have been normal he denies constipation. Gallbladder ultrasonography shows gallbladder sludge, common bile duct interpreted as normal caliber. Of note his father who was hospitalized at [facility] during a code on the fifth floor last night. Past Medical History Cardiac Medical History: Reports: Hypertension Pulmonary Medical History: Reports: Chronic Obstructive Pulmonary Disease (COPD) Neurological Medical History: Denies: Seizures GI Medical History: Reports: Other - Gallbladder sludge, Hepatosteatosis Psychiatric Medical History: Reports: Depression, General Anxiety Disorder, Tobacco Dependency Past Surgical History Past Surgical History: Reports: Appendectomy, Tonsillectomy Social History Smoking Status: Current Every Day Smoker Cigarettes Packs Per Day: 1 Number of Years Smokin Frequency of Alcohol Use: None Hx Recreational Drug Use: No Drugs: None Hx Prescription Drug Abuse: No - Advance Directive Resuscitation Status: Full Code Family History Family History: Reviewed & Not Pertinent Parental Family History Reviewed: Yes Children Family History Reviewed: Yes Sibling(s) Family History Reviewed.: Yes Medication/Allergy Home Medications: Albuterol Sulfate [Proair Respiclick] 2 puff IH Q6HP PRN 01/23/18 Fluticasone Propionate [Flonase Nasal [address] 50 Mcg/[address] 16 gm] 2 sprays NASL DAILY 01/23/18 Ipratropium/Albuterol Sulfate [Duoneb 3 ml Ampul] 3 ml NEB RTQ6HP PRN 01/23/18 Losartan Potassium [Cozaar 50 mg Tablet] 50 mg PO DAILY 01/23/18 Nicotine [Nicoderm 21 mg/24 Hr Transderm Patch] 1 patch TD DAILY 01/23/18 Sertraline HCl [Zoloft] 100 mg PO DAILY 01/23/18 Trazodone HCl [Desyrel] 300 mg PO QHS 01/23/18 Tramadol HCl [Ultram 50 mg Tablet] 50 mg PO Q6HP PRN #30 tablet 01/31/18 Allergies/Adverse Reactions: hydrocodone [From Lortab] Allergy (Verified 01/23/18 04:58) hydroxyzine Allergy (Verified 01/23/18 04:58) zolpidem [From Ambien] Allergy (Verified 01/23/18 04:58) Review of Systems Constitutional: PRESENT: as per HPI Eyes: ABSENT: visual disturbances Ears: ABSENT: hearing changes Genitourinary: ABSENT: dysuria, hematuria Integumentary: ABSENT: rash, wounds Neurological: ABSENT: abnormal gait, abnormal speech, confusion, dizziness, focal weakness, syncope Physical Exam Vital Signs: Temp Pulse Resp BP Pulse Ox 98.4 F 62 16 120/86 H 98 05/01/18 07:34 05/01/18 07:34 05/01/18 07:34 05/01/18 07:34 05/01/18 07:34 Intake & Output 04/30/18 05/01/18 05/02/18 06:59 06:59 06:59 Intake Total 600 3760 Balance 600 3760 Weight 84.8 kg 86.1 kg General appearance: PRESENT: no acute distress Head exam: PRESENT: normocephalic Eye exam: PRESENT: EOMI Mouth exam: PRESENT: dry mucosa Neck exam: PRESENT: full ROM Respiratory exam: PRESENT: rales Cardiovascular exam: PRESENT: RRR Pulses: PRESENT: normal carotid pulses, normal radial pulses, normal femoral pulses GI/Abdominal exam: PRESENT: other - Some right upper quadrant tenderness with guarding no peritoneal signs no rigidity. Scar midline infraumbilical region. Neurological exam: PRESENT: alert, awake, oriented to person, oriented to place , oriented to time, oriented to situation Psychiatric exam: PRESENT: anxious, appropriate affect Results Laboratory Results: 05/01/18 06:28 05/01/18 06:28 04/30/18 05/01/18 05/01/18 19:38 06:28 06:28 WBC 5.2 RBC 3.29 L Hgb 12.1 L Hct 34.8 L MCV 106 H MCH 36.8 H MCHC 34.8 RDW 16.3 H Plt Count 137 L Seg Neutrophils % 63.8 Lymphocytes % 17.5 Monocytes % 13.4 H Eosinophils % 4.5 Basophils % 0.8 Absolute Neutrophils 3.3 Absolute Lymphocytes 0.9 Absolute Monocytes 0.7 Absolute Eosinophils 0.2 Absolute Basophils 0.0 Sodium 140.5 Potassium 3.5 L Chloride 102 Carbon Dioxide 30 Anion Gap 9 BUN 7 Creatinine 0.60 Est GFR ( Amer) > 60 Est GFR (Non-Af Amer) > 60 Glucose 94 Calcium 8.3 L Magnesium 1.6 Total Bilirubin 1.5 H AST 100 H ALT 71 Alkaline Phosphatase 133 H Total Protein 5.4 L Albumin 2.9 L Triglycerides 148 Cholesterol 129.33 LDL Cholesterol Direct 92 VLDL Cholesterol 30.0 HDL Cholesterol 21 L Amylase 219 H Lipase 1149.0 H Impressions: Abdomen Ultrasound 04/29/18 00:00 IMPRESSION: 1. Gallbladder sludge. No shadowing gallstones identified. 2. Hepatic steatosis. 3. Mild splenomegaly. Assessment & Plan - Diagnosis (1) Cholelithiasis Qualifiers: Cholelithiasis location: gallbladder Cholecystitis presence: with cholecystitis Cholecystitis acuity: acute and chronic Is this a current diagnosis for this admission?: Yes Plan: My assessment is that the patient has had recurrent episodes of low intermittent grade pancreatitis due to biliary sludge. In the past he may have had alcohol-related for an pancreatic disease, but I believe cholelithiasis may be the primary culprit during this admission. Recommendations: 1. I have wanted to the patient the pathoanatomy of biliary tract disease, in relation to recurrent pancreatitis; also explained the city of his situation with past hepato-and pancreatic disease related to alcohol consumption 2. I think patient would benefit from interval cholecystectomy this admission. I have offered to perform the procedure today or tomorrow depending upon his friends as he is still recovering from the loss of his father. I have explained the mechanics of laparoscopic, possible open cholecystectomy with a discussion of the mechanics of the operation as well as a review of the risks benefits and alternatives. He has had previous lower abdominal surgery so risk of adhesion and need for conversion also discussed. 3. We will keep him n.p.o. on IV fluids and await his decision regarding timing of surgery, likely later today or tomorrow. (2) Status post endoscopic retrograde cholangiopancreatography Is this a current diagnosis for this admission?: Yes Plan: 3 months ago, with sphincterotomy, extraction of common bile duct sludge Dr. Wheeler (3) Abdominal pain Qualifiers: Abdominal location: right upper quadrant Qualified Code(s): R10.11 - Right upper quadrant pain Is this a current diagnosis for this admission?: Yes (4) Abnormal liver function Is this a current diagnosis for this admission?: Yes Plan: Likely related to recurrent gallbladder disease. Hepatocellular dysfunction, low-grade and chronic, may also be a contributing factor (5) Acute pancreatitis Qualifiers: Pancreatitis type: biliary Acute pancreatitis complication: no infection or necrosis Qualified Code(s): K85.10 - Biliary acute pancreatitis without necrosis or infection Is this a current diagnosis for this admission?: Yes - Time Time Spent: 30 to 50 Minutes Smoking Cessation Education: over 10 minutes Anticipated discharge: Home - Inpatient Certification Based on my medical assessment, after consideration of the patient's comorbidities, presenting symptoms, or acuity I expect that the services needed warrant INPATIENT care.: Yes I certify that my determination is in accordance with my understanding of Medicare's requirements for reasonable and necessary INPATIENT services [42 CFR 412.3e].: Yes Medical Necessity: Need For IV Fluids, Need for Pain Control, Need for IV Antibiotics, Need for Surgery
[2018-05-01] MEDS ORDERED: BUPIVACAINE HCL 0.25 % INJ/PF (2.5 MG/1 ML) 30 ML VIAL ONE ×2 (12:50→14:46)
[2018-05-01] MEDS ORDERED: FENTANYL CITRATE INJ/PF 250 MCG/5 ML AMPULE ONE (14:51)
[2018-05-01] MEDS ORDERED: MIDAZOLAM 2 MG/2 ML INJ ONE (14:51)
[2018-05-01] MEDS ORDERED: PROPOFOL INJ 200 MG/20 ML VIAL IV ONE (14:52)
[2018-05-01] MEDS ORDERED: ACETAMINOPHEN 1,000 MG/100 ML RTUPB IV ONE (14:52)
[2018-05-01] MEDS ORDERED: DEXMEDETOMIDINE INJ 80 MCG/20 ML VIAL IV ONE (14:52)
[2018-05-01] MEDS ORDERED: ALBUTEROL SULFATE 0.083% NEB 2.5 MG/3 ML AMPUL NEB ONE (15:13)
[2018-05-01] MEDS ORDERED: CEFAZOLIN INJ 1 GM VIAL ONE (15:36)
[2018-05-01] MEDS ORDERED: DIPHENHYDRAMINE HCL 50 MG/ML VIAL IV PRN (15:55)
[2018-05-01] MEDS ORDERED: MORPHINE SULFATE 10 MG/ML INJ IV PRN (15:55)
[2018-05-01] MEDS ORDERED: PROMETHAZINE HCL INJ 25 MG/1 ML VIAL IV PRN ×2 (15:55)
[2018-05-01] MEDS ORDERED: FENTANYL CITRATE INJ/PF 100 MCG/2 ML AMPUL IV PRN ×3 (15:55)
[2018-05-01] MEDS ORDERED: MEPERIDINE HCL/PF INJ 25 MG/1 ML DISP.SYRIN IV PRN (15:55)
--- NOTE | 2018-05-01 16:12 | Operative Report ---
Operative Report DATE OF SURGERY: 05/01/18 PREOPERATIVE DIAGNOSIS: 1. Chronic cholecystitis with cholelithiasis. 2. Recurrent pancreatitis. 3. Alcohol liver disease POSTOPERATIVE DIAGNOSIS: Same OPERATION: Laparoscopic cholecystectomy SURGEON: MAJOR MITCHELL ANESTHESIA: GA TISSUE REMOVED OR ALTERED: 1 gallbladder with contents COMPLICATIONS: None ESTIMATED BLOOD LOSS: Scant INTRAOPERATIVE FINDINGS: See below PROCEDURE: After obtaining informed consent, the patient was taken to the operating room. General Anesthesia was induced; the arms were extended, and the abdomen was exposed, and prepped and draped in a sterile fashion. Instrumentation was set up for laparoscopic cholecystectomy. Surgical plan and surgical timeout were conducted. A vertical incision was made above the umbilicus, and a verres needle was inserted uneventfully into the peritoneal cavity. Pneumoperitoneum was established. The verres needle was removed and a 5 mm trocar was inserted and a 5 mm flexible laparoscope was inserted. Visualization of the peritoneal cavity confirmed safe uneventful entry. Under direct visualization 3 additional 5 mm ports were established, one in the subxiphoid position and second in the subcostal position. The liver parenchyma was granular , flash-peach colored with nodularity consistent with cirrhosis. Visualization of the hepatobiliary anatomy revealed no anatomic variations. A grasper was placed on the fundus of the gallbladder and the gallbladder is elevated over the right surface of the liver; a second grasper was used to grasp the infundibulum of the gallbladder. The neck of the gallbladder and junction with the cystic duct was dissected out. The Cystic artery was in its usual location medial and cephalad to the cystic duct. The cystic artery was surrounded with a right angle clamp, clipped twice proximally and divided with laparoscopic scissors. We now opened the triangle of Calot by dividing the peritoneal reflection on both the medial and lateral sides of the cystic duct infundibular junction. The critical view was obtained. Photos were taken. We now milked the cystic duct of any possible stones, clipped the cystic duct approximately 2 times once distally and divided with scissors. The gallbladder was now removed from the undersurface of the liver using hook cautery dissection. Graspers were repositioned and the gallbladder was removed uneventfully from the abdominal cavity through the super umbilical port site incision. The specimen was examined, then passed off to pathology for permanent analysis. We returned to the peritoneal cavity check for bleeding, and evidence of bile leak, and there was none. We Confirmed satisfactory placement of clips on cystic duct and cystic artery were secured . At this point we felt the operation was complete. The subcutaneous tissue was then anesthetized with quarter percent Marcaine Sponge and needle counts are correct. All ports removed under direct visualization pneumoperitoneum evacuated, and 5 mm port wounds closed with 3-0 Vicryl suture, benzoin and Steri-Strips. The patient was extubated, and taken to the recovery room in stable condition.
[2018-05-01] MEDS ORDERED: SUGAMMADEX SODIUM 200 MG/2 ML SDV IV ONE (16:14)
[2018-05-01] MEDS: FENTANYL CITRATE INJ/PF 100 MCG/2 ML AMPUL ONE ×2 (16:43→16:51)
--- NOTE | 2018-05-01 19:34 | EKG REPORT ---
SEVERITY:- ABNORMAL ECG - SINUS RHYTHM PROBABLE POSTERIOR INFARCT NONSPECIFIC ST-T CHANGES- INFERIOR LEADS : Confirmed by: Nathaniel Juárez MD 01-May-2018 19:34:04
[2018-05-02] MEDS: FENTANYL CITRATE INJ/PF 100 MCG/2 ML AMPUL IV PRN ×5 (02:17→20:24)
[2018-05-02 05:36] LABS: ALANINE AMINOTRANSFERASE 63 U/L (21-72); ALBUMIN 2.5 g/dL (3.5-5.0); ALKALINE PHOSPHATASE 117 U/L (38-126); ANION GAP 9 (5-19); ASPARTATE AMINO TRANSFERASE 99 U/L (17-59); BILIRUBIN,DIRECT 0.8 mg/dL (0.0-0.4); BLOOD UREA NITROGEN 10 mg/dL (7-20); CALCIUM 8.3 mg/dL (8.4-10.2); CARBON DIOXIDE 25 mmol/L (22-30); CHLORIDE 106 mmol/L (98-107); GLUCOSE 99 mg/dL (75-110); POTASSIUM 3.6 mmol/L (3.6-5.0); SODIUM 139.7 mmol/L (137-145); TOTAL PROTEIN 4.8 g/dL (6.3-8.2)
[2018-05-02] MEDS: LANSOPRAZOLE 30 MG TAB.RAP.DR PO SCH (09:23)
[2018-05-02] MEDS: ENOXAPARIN SODIUM INJ 40 MG/0.4 ML DISP.SYRIN SUBCUT SCH (09:23)
--- NOTE | 2018-05-02 10:52 | PDOC PROGRESS REPORT ---
Subjective Subjective:: Patient has no complaints, feels better. Tolerating a diet Reason For Visit: RECURRENT ACUTE PANCREATITIS, GALLBLADDER DISEASE Physical Exam Vital Signs: Temp Pulse Resp BP Pulse Ox 98.4 F 57 L 18 126/82 H 100 05/02/18 08:26 05/02/18 08:26 05/02/18 08:26 05/02/18 08:26 05/02/18 08:26 Intake & Output 05/01/18 05/02/18 05/03/18 06:59 06:59 06:59 Intake Total 3760 3075 Output Total 185 Balance 3760 2890 Weight 86.1 kg 87.1 kg General appearance: PRESENT: no acute distress GI/Abdominal exam: PRESENT: other - Operative incision healing satisfactorily. No peritoneal signs no rigidity. Results Laboratory Results: 05/01/18 06:28 05/02/18 05:04 05/02/18 05:04 Sodium 139.7 Potassium 3.6 Chloride 106 Carbon Dioxide 25 Anion Gap 9 BUN 10 Creatinine 0.57 Est GFR ( Amer) > 60 Est GFR (Non-Af Amer) > 60 Glucose 99 Calcium 8.3 L Total Bilirubin 1.0 AST 99 H ALT 63 Alkaline Phosphatase 117 Total Protein 4.8 L Albumin 2.5 L Impressions: Abdomen Ultrasound 04/29/18 00:00 IMPRESSION: 1. Gallbladder sludge. No shadowing gallstones identified. 2. Hepatic steatosis. 3. Mild splenomegaly. Assessment & Plan - Diagnosis (1) Cholelithiasis Qualifiers: Cholelithiasis location: gallbladder Cholecystitis presence: with cholecystitis Cholecystitis acuity: acute and chronic Is this a current diagnosis for this admission?: Yes Plan: Patient now postoperative day 1 status post laparoscopic cholecystectomy for chronic cholecystitis, doing well, no complications, clinically improved Recommendations: 1. May discharge patient home per medical service 2. May take pain medications as needed; surgery will not prescribe narcotics at this time 3. Patient to return to [facility] [place] [facility] surgical clinic follow-up appointment with AMOS Cleary, in 1-2 weeks. (2) Status post endoscopic retrograde cholangiopancreatography Is this a current diagnosis for this admission?: Yes (3) Abdominal pain Qualifiers: Abdominal location: right upper quadrant Qualified Code(s): R10.11 - Right upper quadrant pain Is this a current diagnosis for this admission?: Yes (4) Abnormal liver function Is this a current diagnosis for this admission?: Yes (5) Acute pancreatitis Qualifiers: Pancreatitis type: biliary Acute pancreatitis complication: no infection or necrosis Qualified Code(s): K85.10 - Biliary acute pancreatitis without necrosis or infection Is this a current diagnosis for this admission?: Yes
--- NOTE | 2018-05-02 12:20 | PDOC PROGRESS REPORT ---
Subjective Progress Note for:: 05/02/18 Subjective:: Patient was admitted for the management of acute cholecystitis pancreatitis, status post cholecystectomy, still n.p.o., requesting nicotine patch Reason For Visit: RECURRENT ACUTE PANCREATITIS, GALLBLADDER DISEASE Physical Exam Vital Signs: Temp Pulse Resp BP Pulse Ox 98.4 F 57 L 18 126/82 H 100 05/02/18 08:26 05/02/18 08:26 05/02/18 08:26 05/02/18 08:26 05/02/18 08:26 Intake & Output 05/01/18 05/02/18 05/03/18 06:59 06:59 06:59 Intake Total 3760 3075 Output Total 185 Balance 3760 2890 Weight 86.1 kg 87.1 kg General appearance: PRESENT: no acute distress Head exam: PRESENT: atraumatic, normocephalic Eye exam: PRESENT: PERRLA Ear exam: PRESENT: normal external ear exam Neck exam: PRESENT: full ROM Respiratory exam: PRESENT: clear to auscultation carroll Cardiovascular exam: PRESENT: RRR, +S1, +S2 Pulses: PRESENT: normal dorsalis pedis pul, +2 pedal pulses bilateral Vascular exam: PRESENT: normal capillary refill GI/Abdominal exam: PRESENT: normal bowel sounds, soft Rectal exam: PRESENT: deferred Neurological exam: PRESENT: alert, awake, oriented to person, oriented to place , oriented to time, oriented to situation, CN II-XII grossly intact Psychiatric exam: PRESENT: appropriate affect, normal mood Skin exam: PRESENT: dry, intact, warm Results Laboratory Results: 05/01/18 06:28 05/02/18 05:04 05/02/18 05:04 Sodium 139.7 Potassium 3.6 Chloride 106 Carbon Dioxide 25 Anion Gap 9 BUN 10 Creatinine 0.57 Est GFR ( Amer) > 60 Est GFR (Non-Af Amer) > 60 Glucose 99 Calcium 8.3 L Total Bilirubin 1.0 AST 99 H ALT 63 Alkaline Phosphatase 117 Total Protein 4.8 L Albumin 2.5 L Impressions: Abdomen Ultrasound 04/29/18 00:00 IMPRESSION: 1. Gallbladder sludge. No shadowing gallstones identified. 2. Hepatic steatosis. 3. Mild splenomegaly. Assessment & Plan - Diagnosis (1) Pancreatitis, gallstone Is this a current diagnosis for this admission?: Yes Plan: Continue n.p.o. (2) Tobacco dependence Is this a current diagnosis for this admission?: Yes Plan: Start nicotine patch
[2018-05-02] MEDS: NORMAL SALINE 1000 ML 1,000 ML IV PRN (14:21)
[2018-05-02] MEDS: NICOTINE 21 MG/24 HR PATCH.TD24 TD SCH (14:35)
[2018-05-02] MEDS: IPRATROPIUM/ALBUTEROL 0.5-2.5 MG/3 ML AMPUL NEB PRN (15:19)
[2018-05-03] MEDS: FENTANYL CITRATE INJ/PF 100 MCG/2 ML AMPUL IV PRN ×6 (00:34→23:12)
[2018-05-03] MEDS: NORMAL SALINE 1000 ML 1,000 ML IV PRN ×2 (00:38→18:24)
[2018-05-03] MEDS: ENOXAPARIN SODIUM INJ 40 MG/0.4 ML DISP.SYRIN SUBCUT SCH (10:32)
[2018-05-03] MEDS: LANSOPRAZOLE 30 MG TAB.RAP.DR PO SCH (10:32)
--- NOTE | 2018-05-03 12:42 | PDOC PROGRESS REPORT ---
Subjective Progress Note for:: 05/03/18 Subjective:: There is no new complaints Reason For Visit: RECURRENT ACUTE PANCREATITIS, GALLBLADDER DISEASE Physical Exam Vital Signs: Temp Pulse Resp BP Pulse Ox 97.4 F 62 16 135/89 H 98 05/03/18 11:32 05/03/18 11:32 05/03/18 11:32 05/03/18 11:32 05/03/18 11:32 Intake & Output 05/02/18 05/03/18 05/04/18 06:59 06:59 06:59 Intake Total 3075 4971 Output Total 185 1100 Balance 2890 3871 Weight 87.1 kg 88.8 kg General appearance: PRESENT: no acute distress Eye exam: PRESENT: PERRLA Respiratory exam: PRESENT: clear to auscultation carroll Cardiovascular exam: PRESENT: +S1, +S2 GI/Abdominal exam: PRESENT: soft Neurological exam: PRESENT: alert Results Laboratory Results: 05/01/18 06:28 05/02/18 05:04 Impressions: Abdomen Ultrasound 04/29/18 00:00 IMPRESSION: 1. Gallbladder sludge. No shadowing gallstones identified. 2. Hepatic steatosis. 3. Mild splenomegaly. Assessment & Plan - Diagnosis (1) Pancreatitis, gallstone Is this a current diagnosis for this admission?: Yes (2) Tobacco dependence Is this a current diagnosis for this admission?: Yes
[2018-05-03 13:20] LABS: ABSOLUTE EOSINOPHILS # (AUTO) 0.1 10^3/uL (0.0-0.6); ABSOLUTE LYMPHOCYTES (AUTO) 0.7 10^3/uL (0.5-4.7); ABSOLUTE MONOCYTES (AUTO) 0.5 10^3/uL (0.1-1.4); ABSOLUTE NEUT (AUTO) 2.7 10^3/uL (1.7-8.2); BASOPHILS % (AUTO) 0.7 % (0-2); EOSINOPHILS % (AUTO) 3.4 % (0-6); HEMATOCRIT 35.2 % (37.9-51.0); LYMPHOCYTES % (AUTO) 16.2 % (13-45); MEAN CORPUSCULAR HEMOGLOBIN 36.2 pg (27.0-33.4); MEAN CORPUSCULAR HGB CONC 34.2 g/dL (32.0-36.0); MEAN CORPUSCULAR VOLUME 106 fl (80-97); PLATELET COUNT 161 10^3/uL (150-450); RED BLOOD COUNT 3.33 10^6/uL (4.35-5.55); RED CELL DISTRIBUTION WIDTH 16.1 % (11.5-14.0); SEGMENTED NEUTROPHILS % (AUTO) 67.7 % (42-78); TOTAL CELLS COUNTED % (AUTO) 100 %
[2018-05-03 13:35] LABS: ALANINE AMINOTRANSFERASE 53 U/L (21-72); ALBUMIN 2.8 g/dL (3.5-5.0); ALKALINE PHOSPHATASE 124 U/L (38-126); ANION GAP 10 (5-19); ASPARTATE AMINO TRANSFERASE 75 U/L (17-59); BILIRUBIN,DIRECT 0.8 mg/dL (0.0-0.4); BILIRUBIN,TOTAL 1.1 mg/dL (0.2-1.3); BLOOD UREA NITROGEN 6 mg/dL (7-20); CALCIUM 8.2 mg/dL (8.4-10.2); CARBON DIOXIDE 31 mmol/L (22-30); CHLORIDE 100 mmol/L (98-107); GLUCOSE 88 mg/dL (75-110); POTASSIUM 3.2 mmol/L (3.6-5.0); SODIUM 140.5 mmol/L (137-145); TOTAL PROTEIN 5.3 g/dL (6.3-8.2)
[2018-05-03] MEDS: IPRATROPIUM/ALBUTEROL 0.5-2.5 MG/3 ML AMPUL NEB PRN (14:25)
[2018-05-03] MEDS: NICOTINE 21 MG/24 HR PATCH.TD24 TD SCH (14:49)
[2018-05-04] MEDS: FENTANYL CITRATE INJ/PF 100 MCG/2 ML AMPUL IV PRN ×4 (04:27→20:02)
[2018-05-04] MEDS: NORMAL SALINE 1000 ML 1,000 ML IV PRN ×2 (04:31→15:16)
[2018-05-04 04:40] LABS: ABSOLUTE EOSINOPHILS # (AUTO) 0.2 10^3/uL (0.0-0.6); ABSOLUTE LYMPHOCYTES (AUTO) 0.8 10^3/uL (0.5-4.7); ABSOLUTE MONOCYTES (AUTO) 0.6 10^3/uL (0.1-1.4); ABSOLUTE NEUT (AUTO) 2.8 10^3/uL (1.7-8.2); EOSINOPHILS % (AUTO) 4.6 % (0-6); HEMATOCRIT 31.6 % (37.9-51.0); LYMPHOCYTES % (AUTO) 18.1 % (13-45); MEAN CORPUSCULAR HEMOGLOBIN 36.8 pg (27.0-33.4); MEAN CORPUSCULAR HGB CONC 34.8 g/dL (32.0-36.0); MEAN CORPUSCULAR VOLUME 106 fl (80-97); MONOCYTES % (AUTO) 12.8 % (3-13); PLATELET COUNT 141 10^3/uL (150-450); RED BLOOD COUNT 2.99 10^6/uL (4.35-5.55); RED CELL DISTRIBUTION WIDTH 15.8 % (11.5-14.0); SEGMENTED NEUTROPHILS % (AUTO) 63.5 % (42-78); TOTAL CELLS COUNTED % (AUTO) 100 %; WHITE BLOOD COUNT 4.5 10^3/uL (4.0-10.5)
[2018-05-04 05:25] LABS: ALANINE AMINOTRANSFERASE 44 U/L (21-72); ALBUMIN 2.4 g/dL (3.5-5.0); ALKALINE PHOSPHATASE 110 U/L (38-126); ANION GAP 7 (5-19); ASPARTATE AMINO TRANSFERASE 57 U/L (17-59); BILIRUBIN,DIRECT 0.7 mg/dL (0.0-0.4); BILIRUBIN,TOTAL 0.7 mg/dL (0.2-1.3); BLOOD UREA NITROGEN 7 mg/dL (7-20); CALCIUM 7.9 mg/dL (8.4-10.2); CARBON DIOXIDE 30 mmol/L (22-30); CHLORIDE 104 mmol/L (98-107); GLUCOSE 89 mg/dL (75-110); POTASSIUM 3.4 mmol/L (3.6-5.0); SODIUM 141.4 mmol/L (137-145); TOTAL PROTEIN 4.7 g/dL (6.3-8.2)
--- NOTE | 2018-05-04 08:24 | PDOC PROGRESS REPORT ---
Subjective Progress Note for:: 05/04/18 Subjective:: S/P lap cholecystectomy. No significant abdominal pain. No nausea or vomiting. No fever or chills. No chest pain of difficulty with breathing. Reason For Visit: RECURRENT ACUTE PANCREATITIS, GALLBLADDER DISEASE Physical Exam Vital Signs: Temp Pulse Resp BP Pulse Ox 97.9 F 56 L 17 133/83 H 97 05/04/18 07:20 05/04/18 07:20 05/04/18 07:20 05/04/18 07:20 05/04/18 07:20 Intake & Output 05/03/18 05/04/18 05/05/18 06:59 06:59 06:59 Intake Total 4971 2760 Output Total 1100 1775 Balance 3871 985 Weight 88.8 kg 87 kg Physical Exam: General appearance: PRESENT: mild distress - due to ongoing RUQ expressed pain Head exam: PRESENT: atraumatic, normocephalic Mouth exam: PRESENT: moist Respiratory exam: PRESENT: clear to auscultation carroll Cardiovascular exam: PRESENT: RRR. ABSENT: diastolic murmur, rubs, systolic murmur Vascular exam: ABSENT: pallor GI/Abdominal exam: PRESENT: normal bowel sounds. ABSENT: tenderness, organomegaly Extremities exam: ABSENT: pedal edema Musculoskeletal exam: PRESENT: normal inspection Neurological exam: PRESENT: alert, awake, oriented to person, oriented to place , oriented to time, oriented to situation, CN II-XII grossly intact. ABSENT: motor sensory deficit Psychiatric exam: PRESENT: appropriate affect, normal mood. ABSENT: homicidal ideation, suicidal ideation Skin exam: PRESENT: dry, warm, healing sites of surgical intervention, resolving ecchymosis RLQ region ABSENT: cyanosis, rash Results Laboratory Results: 05/04/18 04:11 05/04/18 04:11 05/03/18 05/03/18 05/04/18 12:52 12:52 04:11 WBC 4.0 4.5 RBC 3.33 L 2.99 L Hgb 12.0 L 11.0 L Hct 35.2 L 31.6 L MCV 106 H 106 H MCH 36.2 H 36.8 H MCHC 34.2 34.8 RDW 16.1 H 15.8 H Plt Count 161 141 L Seg Neutrophils % 67.7 63.5 Lymphocytes % 16.2 18.1 Monocytes % 12.0 12.8 Eosinophils % 3.4 4.6 Basophils % 0.7 1.0 Absolute Neutrophils 2.7 2.8 Absolute Lymphocytes 0.7 0.8 Absolute Monocytes 0.5 0.6 Absolute Eosinophils 0.1 0.2 Absolute Basophils 0.0 0.0 Sodium 140.5 Potassium 3.2 L Chloride 100 Carbon Dioxide 31 H Anion Gap 10 BUN 6 L Creatinine 0.59 Est GFR ( Amer) > 60 Est GFR (Non-Af Amer) > 60 Glucose 88 Calcium 8.2 L Total Bilirubin 1.1 AST 75 H ALT 53 Alkaline Phosphatase 124 Total Protein 5.3 L Albumin 2.8 L 05/04/18 04:11 WBC RBC Hgb Hct MCV MCH MCHC RDW Plt Count Seg Neutrophils % Lymphocytes % Monocytes % Eosinophils % Basophils % Absolute Neutrophils Absolute Lymphocytes Absolute Monocytes Absolute Eosinophils Absolute Basophils Sodium 141.4 Potassium 3.4 L Chloride 104 Carbon Dioxide 30 Anion Gap 7 BUN 7 Creatinine 0.58 Est GFR ( Amer) > 60 Est GFR (Non-Af Amer) > 60 Glucose 89 Calcium 7.9 L Total Bilirubin 0.7 AST 57 ALT 44 Alkaline Phosphatase 110 Total Protein 4.7 L Albumin 2.4 L Impressions: Abdomen Ultrasound 04/29/18 00:00 IMPRESSION: 1. Gallbladder sludge. No shadowing gallstones identified. 2. Hepatic steatosis. 3. Mild splenomegaly. Assessment & Plan - Diagnosis (1) Abdominal pain Qualifiers: Abdominal location: right upper quadrant Qualified Code(s): R10.11 - Right upper quadrant pain Is this a current diagnosis for this admission?: Yes Plan: Improved. (2) Gallbladder sludge Is this a current diagnosis for this admission?: Yes Plan: s/p lap cholecystectomy. (3) History of pancreatitis Is this a current diagnosis for this admission?: Yes Plan: Improving. (4) HTN (hypertension) Qualifiers: Hypertension type: essential hypertension Qualified Code(s): I10 - Essential (primary) hypertension Is this a current diagnosis for this admission?: Yes Plan: See attending physician orders. (5) COPD (chronic obstructive pulmonary disease) Qualifiers: COPD type: unspecified COPD Qualified Code(s): J44.9 - Chronic obstructive pulmonary disease, unspecified Is this a current diagnosis for this admission?: Yes Plan: See attending physician orders. (6) Mixed anxiety and depressive disorder Is this a current diagnosis for this admission?: Yes Plan: See attending physician orders. (7) Persistent insomnia Is this a current diagnosis for this admission?: Yes Plan: See attending physician orders. (8) Tobacco dependence Is this a current diagnosis for this admission?: Yes Plan: See attending physicians orders. (9) Recurrent acute pancreatitis Is this a current diagnosis for this admission?: Yes Plan: s/p lap cholecystectomy. Obtain serum Lipase and Amylase levels for further evaluation. Maintain of full liquid diet. - Time Time Spent with patient: 25-34 minutes Medications reviewed and adjusted accordingly: Yes Anticipated discharge: Home Within: Other - Inpatient Certification Based on my medical assessment, after consideration of the patient's comorbidities, presenting symptoms, or acuity I expect that the services needed warrant INPATIENT care.: Yes I certify that my determination is in accordance with my understanding of Medicare's requirements for reasonable and necessary INPATIENT services [42 CFR 412.3e].: Yes Medical Necessity: Need Close Monitoring Due to Risk of Patient Decompensation, Need For IV Fluids, Need for Surgery, Risk of Complication if Not Cared For in Hospital Post Hospital Care: D/C B[employer] Head Documentation - Plan 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
[2018-05-04] MEDS: ENOXAPARIN SODIUM INJ 40 MG/0.4 ML DISP.SYRIN SUBCUT SCH (10:01)
[2018-05-04] MEDS: LANSOPRAZOLE 30 MG TAB.RAP.DR PO SCH (10:01)
[2018-05-04] MEDS: NICOTINE 21 MG/24 HR PATCH.TD24 TD SCH (15:16)
[2018-05-04] MEDS: POTASSIUM CHLORIDE 10 MEQ TABLET.SA PO SCH ×2 (19:38→23:02)
[2018-05-04] MEDS: IPRATROPIUM/ALBUTEROL 0.5-2.5 MG/3 ML AMPUL NEB PRN (23:44)
[2018-05-05] MEDS: NORMAL SALINE 1000 ML 1,000 ML IV PRN ×3 (00:25→23:03)
[2018-05-05] MEDS: FENTANYL CITRATE INJ/PF 100 MCG/2 ML AMPUL IV PRN ×5 (00:25→21:44)
[2018-05-05 05:50] LABS: ANION GAP 8 (5-19); BLOOD UREA NITROGEN 6 mg/dL (7-20); CALCIUM 7.9 mg/dL (8.4-10.2); CARBON DIOXIDE 29 mmol/L (22-30); CHLORIDE 105 mmol/L (98-107); GLUCOSE 93 mg/dL (75-110); LIPASE 493.3 U/L (23-300); POTASSIUM 3.5 mmol/L (3.6-5.0); SODIUM 142.1 mmol/L (137-145)
[2018-05-05] MEDS: NICOTINE 21 MG/24 HR PATCH.TD24 TD SCH (12:25)
[2018-05-05] MEDS: LANSOPRAZOLE 30 MG TAB.RAP.DR PO SCH (12:25)
[2018-05-05] MEDS: ENOXAPARIN SODIUM INJ 40 MG/0.4 ML DISP.SYRIN SUBCUT SCH (12:25)
--- NOTE | 2018-05-05 19:05 | PDOC PROGRESS REPORT ---
Subjective Progress Note for:: 05/05/18 Subjective:: No significant abdominal pain beyond surgical instrumentation site post lap cholecystectomy. No nausea or vomiting. No fever or chills. No chest pain of difficulty with breathing. Reason For Visit: RECURRENT ACUTE PANCREATITIS, GALLBLADDER DISEASE Physical Exam Vital Signs: Temp Pulse Resp BP Pulse Ox 97.9 F 63 17 137/90 H 100 05/05/18 15:09 05/05/18 15:09 05/05/18 15:09 05/05/18 15:09 05/05/18 15:09 Intake & Output 05/04/18 05/05/18 05/06/18 06:59 06:59 06:59 Intake Total 2760 0892 1947 Output Total 1775 575 900 Balance 985 2747 1047 Weight 87 kg 87.1 kg Physical Exam: General appearance: PRESENT: mild distress - due to ongoing RUQ expressed pain Head exam: PRESENT: atraumatic, normocephalic Mouth exam: PRESENT: moist Respiratory exam: PRESENT: clear to auscultation carroll Cardiovascular exam: PRESENT: RRR. ABSENT: diastolic murmur, rubs, systolic murmur Vascular exam: ABSENT: pallor GI/Abdominal exam: PRESENT: normal bowel sounds. ABSENT: tenderness, organomegaly Extremities exam: ABSENT: pedal edema Musculoskeletal exam: PRESENT: normal inspection Neurological exam: PRESENT: alert, awake, oriented to person, oriented to place , oriented to time, oriented to situation, CN II-XII grossly intact. ABSENT: motor sensory deficit Psychiatric exam: PRESENT: appropriate affect, normal mood. ABSENT: homicidal ideation, suicidal ideation Skin exam: PRESENT: dry, warm, healing sites of surgical intervention, resolving ecchymosis RLQ region ABSENT: cyanosis, rash Results Laboratory Results: 05/04/18 04:11 05/05/18 04:29 05/04/18 05/05/18 04:11 04:29 Sodium 142.1 Potassium 3.5 L Chloride 105 Carbon Dioxide 29 Anion Gap 8 BUN 6 L Creatinine 0.59 Est GFR ( Amer) > 60 Est GFR (Non-Af Amer) > 60 Glucose 93 Calcium 7.9 L Magnesium 1.6 Lipase 493.3 H Impressions: Abdomen Ultrasound 04/29/18 00:00 IMPRESSION: 1. Gallbladder sludge. No shadowing gallstones identified. 2. Hepatic steatosis. 3. Mild splenomegaly. Assessment & Plan - Diagnosis (1) Abdominal pain Qualifiers: Abdominal location: right upper quadrant Qualified Code(s): R10.11 - Right upper quadrant pain Is this a current diagnosis for this admission?: Yes Plan: Improved. (2) Gallbladder sludge Is this a current diagnosis for this admission?: Yes Plan: s/p lap cholecystectomy. (3) Recurrent acute pancreatitis Is this a current diagnosis for this admission?: Yes Plan: s/p lap cholecystectomy. Obtain serum Lipase in AM. Advance diet to mechanical soft with cut meat. (4) Hypokalemia due to inadequate potassium intake Is this a current diagnosis for this admission?: Yes Plan: Replacement therapy in progress. Repeat BMP in AM. (5) Hypomagnesemia Is this a current diagnosis for this admission?: Yes Plan: Replacement therapy in progress. Repeat Mag level in AM. (6) HTN (hypertension) Qualifiers: Hypertension type: essential hypertension Qualified Code(s): I10 - Essential (primary) hypertension Is this a current diagnosis for this admission?: Yes Plan: See attending physician orders. (7) COPD (chronic obstructive pulmonary disease) Qualifiers: COPD type: unspecified COPD Qualified Code(s): J44.9 - Chronic obstructive pulmonary disease, unspecified Is this a current diagnosis for this admission?: Yes Plan: See attending physician orders. (8) Mixed anxiety and depressive disorder Is this a current diagnosis for this admission?: Yes Plan: See attending physician orders. (9) Persistent insomnia Is this a current diagnosis for this admission?: Yes Plan: See attending physician orders. (10) Tobacco dependence Is this a current diagnosis for this admission?: Yes Plan: See attending physicians orders. - Time Time Spent with patient: 25-34 minutes Medications reviewed and adjusted accordingly: Yes Anticipated discharge: Home Within: Other - Inpatient Certification Based on my medical assessment, after consideration of the patient's comorbidities, presenting symptoms, or acuity I expect that the services needed warrant INPATIENT care.: Yes I certify that my determination is in accordance with my understanding of Medicare's requirements for reasonable and necessary INPATIENT services [42 CFR 412.3e].: Yes Medical Necessity: Need Close Monitoring Due to Risk of Patient Decompensation, Need For IV Fluids, Need For Continuous Telemetry Monitoring, Need for Pain Control, Need for Surgery, Risk of Complication if Not Cared For in Hospital Post Hospital Care: D/C Physician Assistant Surgery Documentation - Plan 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
[2018-05-05] MEDS ORDERED: MAGNESIUM SULFATE/D5W 1 GM/100 ML RTUPB IV ONE (19:30)
[2018-05-05] MEDS ORDERED: POTASSIUM CHLORIDE 10 MEQ TABLET.SA PO SCH (19:30)
[2018-05-05] MEDS: IPRATROPIUM/ALBUTEROL 0.5-2.5 MG/3 ML AMPUL NEB PRN (21:14)
[2018-05-06 06:37] LABS: ABSOLUTE EOSINOPHILS # (AUTO) 0.1 10^3/uL (0.0-0.6); ABSOLUTE LYMPHOCYTES (AUTO) 0.5 10^3/uL (0.5-4.7); ABSOLUTE MONOCYTES (AUTO) 0.5 10^3/uL (0.1-1.4); ABSOLUTE NEUT (AUTO) 2.5 10^3/uL (1.7-8.2); EOSINOPHILS % (AUTO) 3.5 % (0-6); HEMATOCRIT 30.5 % (37.9-51.0); HEMOGLOBIN 10.5 g/dL (13.5-17.0); LYMPHOCYTES % (AUTO) 14.3 % (13-45); MEAN CORPUSCULAR HEMOGLOBIN 36.3 pg (27.0-33.4); MEAN CORPUSCULAR HGB CONC 34.4 g/dL (32.0-36.0); MEAN CORPUSCULAR VOLUME 105 fl (80-97); MONOCYTES % (AUTO) 13.5 % (3-13); PLATELET COUNT 127 10^3/uL (150-450); RED BLOOD COUNT 2.89 10^6/uL (4.35-5.55); RED CELL DISTRIBUTION WIDTH 16.1 % (11.5-14.0); SEGMENTED NEUTROPHILS % (AUTO) 67.7 % (42-78); TOTAL CELLS COUNTED % (AUTO) 100 %; WHITE BLOOD COUNT 3.6 10^3/uL (4.0-10.5)
--- NOTE | 2018-05-06 06:41 | PDOC DISCHARGE SUMMARY ---
General - Admit/Disc Date/PCP Admission Date/Primary Care Provider: 04/29/18 19:05 ROXIE HOOD Discharge Date: 05/06/18 - Discharge Diagnosis (1) Abdominal pain Is this a current diagnosis for this admission?: Yes (2) Gallbladder sludge Is this a current diagnosis for this admission?: Yes (3) Recurrent acute pancreatitis Is this a current diagnosis for this admission?: Yes (4) Hypokalemia due to inadequate potassium intake Is this a current diagnosis for this admission?: Yes (5) Hypomagnesemia Is this a current diagnosis for this admission?: Yes (6) HTN (hypertension) Is this a current diagnosis for this admission?: Yes (7) COPD (chronic obstructive pulmonary disease) Is this a current diagnosis for this admission?: Yes (8) Mixed anxiety and depressive disorder Is this a current diagnosis for this admission?: Yes (9) Persistent insomnia Is this a current diagnosis for this admission?: Yes (10) Tobacco dependence Is this a current diagnosis for this admission?: Yes - Additional Information Resuscitation Status: Full Code Home Medications: Albuterol Sulfate [Proair Respiclick] 2 puff IH Q6HP PRN 01/23/18 Fluticasone Propionate [Flonase Nasal [place] 50 Mcg/[place] 16 gm] 2 sprays NASL DAILY 01/23/18 Ipratropium/Albuterol Sulfate [Duoneb 3 ml Ampul] 3 ml NEB RTQ6HP PRN 01/23/18 Losartan Potassium [Cozaar 50 mg Tablet] 50 mg PO DAILY 01/23/18 Nicotine [Nicoderm 21 mg/24 Hr Transderm Patch] 1 patch TD DAILY 01/23/18 Sertraline HCl [Zoloft] 100 mg PO DAILY 01/23/18 Trazodone HCl [Desyrel] 300 mg PO QHS 01/23/18 Tramadol HCl [Ultram 50 mg Tablet] 50 mg PO Q6HP PRN #30 tablet 01/31/18 History of Present Illness History of Present Illness: ESTRELLA GAONA is a 53 year old male known to my practice who presented to the office today with new onset abdominal pain over last 3 to 7 days. Patient localized pain to right upper quadrant and left flank regions. He described pain as stabbing, cramping and as if something pushing inside. He rated ain at 8 -9 / 10 and intermittent in occurrence. He reported associated poor appetite but denied significant nausea or vomiting. He stated tthat his pain has gradually worsen leading to seeking attention today.Nothing relieved his pain. He believes that his pain is due to his recurrent pancreatitis. He denied recent alcohol consumption. He has history of gallbladder problem. He denied any fever or chills. No shortness of breathe or chest pain. No dysuria or hematuria. Hospital Course Hospital Course: Patient continue to demonstrate RUQ tenderness and elevated serum Lipase level. He was eventually made full admission with recurrent Pancreatitis. He was seen by the surgicalist team due to continued sludge defeat on US of his gallbladder. There was concern that this may be contributing to his recurrent pancreatitis issue. He eventually went to surgery and had laparoscopic cholecystectomy completed on 05/01/2018. He remain stable post operatively and tolerated oral feeding with gradual advance of his diet consistency. He is agreeable to discharge home today. He will follow up with surgicalist team and myself in the office as instructed upon discharge. Physical Exam Vital Signs: Temp Pulse Resp BP Pulse Ox 98.4 F 70 16 150/95 H 100 05/05/18 23:07 05/05/18 23:07 05/05/18 23:07 05/05/18 23:07 05/05/18 23:07 Intake & Output 05/04/18 05/05/18 05/06/18 06:59 06:59 06:59 Intake Total 2760 3322 3797 Output Total 1775 575 900 Balance 985 2747 2897 Weight 87 kg 87.1 kg 87.3 kg Physical Exam: General appearance: PRESENT: mild distress - due to ongoing RUQ expressed pain Head exam: PRESENT: atraumatic, normocephalic Mouth exam: PRESENT: moist Respiratory exam: PRESENT: clear to auscultation carroll Cardiovascular exam: PRESENT: RRR. ABSENT: diastolic murmur, rubs, systolic murmur Vascular exam: ABSENT: pallor GI/Abdominal exam: PRESENT: normal bowel sounds. ABSENT: tenderness, organomegaly Extremities exam: ABSENT: pedal edema Musculoskeletal exam: PRESENT: normal inspection Neurological exam: PRESENT: alert, awake, oriented to person, oriented to place , oriented to time, oriented to situation, CN II-XII grossly intact. ABSENT: motor sensory deficit Psychiatric exam: PRESENT: appropriate affect, normal mood. ABSENT: homicidal ideation, suicidal ideation Skin exam: PRESENT: dry, warm, healing sites of surgical intervention, resolving ecchymosis RLQ region ABSENT: cyanosis, rash Results Laboratory Results: 05/04/18 04:11 05/05/18 04:29 Impressions: Abdomen Ultrasound 04/29/18 00:00 IMPRESSION: 1. Gallbladder sludge. No shadowing gallstones identified. 2. Hepatic steatosis. 3. Mild splenomegaly. Qualifiers - * PATIENT BEING DISCHARGED WITH ANY OF THE FOLLOWING DIAGNOSIS: No Plan Discharge Plan: D/C home today with follow up instructions upon discharge. Time Spent: Greater than 30 Minutes - I spent more than 50% of my time in discahrge care coordination and transition to post acute hospital care.
[2018-05-06 06:54] LABS: ANION GAP 5 (5-19); BLOOD UREA NITROGEN 5 mg/dL (7-20); CALCIUM 8.3 mg/dL (8.4-10.2); CARBON DIOXIDE 29 mmol/L (22-30); CHLORIDE 110 mmol/L (98-107); GLUCOSE 96 mg/dL (75-110); POTASSIUM 4.1 mmol/L (3.6-5.0); SODIUM 144.2 mmol/L (137-145)
[2018-05-06] MEDS: FENTANYL CITRATE INJ/PF 100 MCG/2 ML AMPUL IV PRN (08:12)
[2018-05-06 08:54] VITALS: BP 143/83
[2018-05-06] MEDS: LANSOPRAZOLE 30 MG TAB.RAP.DR PO SCH (09:31)
[2018-05-06] MEDS: ENOXAPARIN SODIUM INJ 40 MG/0.4 ML DISP.SYRIN SUBCUT SCH (09:31)
== END 2018-05-06 10:40 | disposition home or self-care (01) | DRG 418 ==
LOC: 4N 19:05 → UNDOADMOB 19:05 → OBSVTOIN 19:05 → INTOOBSV 19:05 → OBSVTOIN 04-30 16:54 → 4N 04-30 16:54 → UNDODISIN 05-06 10:40
PROVIDERS: ADMIT Internal Medicine Geriatric Medicine; ATTEND Internal Medicine Geriatric Medicine
PROC: 3E0F73Z Introduction of Anti-inflammatory into Respiratory Tract, Via Natural or Artificial Opening (ICD-10-PCS; 2018-04-30)
PROC: 0FT44ZZ Resection of Gallbladder, Percutaneous Endoscopic Approach (ICD-10-PCS; principal; 2018-05-01 14:30)
DX: K85.10 Biliary acute pancreatitis without necrosis or infection (principal); K81.2 Acute cholecystitis with chronic cholecystitis; K86.1 Other chronic pancreatitis; E87.6 Hypokalemia; E83.42 Hypomagnesemia; I10 Essential (primary) hypertension; J44.9 Chronic obstructive pulmonary disease, unspecified; G47.09 Other insomnia; R16.1 Splenomegaly, not elsewhere classified; F41.1 Generalized anxiety disorder; F17.210 Nicotine dependence, cigarettes, uncomplicated; K21.9 Gastro-esophageal reflux disease without esophagitis; K70.9 Alcoholic liver disease, unspecified; Z79.899 Other long term (current) drug therapy; Z88.6 Allergy status to analgesic agent; Z88.8 Allergy status to other drugs, medicaments and biological substances; Z83.3 Family history of diabetes mellitus; Z82.49 Family history of ischemic heart disease and other diseases of the circulatory system
CPT/HCPCS: 36415; 76700; 790; 80048; 80053; 80061; 80076; 82150; 82962; 83690; 83735; 85025; 88304; 93005; 93010; 93976; 94640; G0379; J0131; J0330; J0690; J1100; J1650; J1885; J2250; J2405; J2704; J2765; J3010; J3475; J3480; J3490; J7030; J7620

== ENCOUNTER 2019-04-06 20:45 | Emergency (ER) | payer MEDICARE ==
[2019-04-06] MEDS ORDERED: ONDANSETRON HCL INJ/PF 4 MG/2 ML SDV IV ONE (21:19)
[2019-04-06] MEDS ORDERED: NORMAL SALINE 1000 ML 1,000 ML IV ONE ×2 (21:19→22:17)
[2019-04-06] MEDS ORDERED: PANTOPRAZOLE SODIUM 40 MG VIAL IV ONE (21:20)
--- NOTE | 2019-04-06 21:20 | ER Document Report ---
ED General - General Chief Complaint: Abdominal Pain Stated Complaint: ABDOMINAL PAIN Time Seen by Provider: 04/06/19 21:11 Primary Care Provider: ROXIE HOOD MD [Primary Care Provider] - Follow up as needed Mode of Arrival: Medic Information source: Patient, Emergency Med Personnel, [facility] Records Notes: 53-year-old male with COPD, hypertension, previous history of pancreatitis, remote history of alcohol abuse presents with complaint of abdominal pain, nausea, vomiting and diarrhea that started 2 weeks prior to arrival. Abdominal pain is located in the right and left lower quadrant and described as cramping, intermittent. Patient has had numerous episodes of nausea and vomiting. He denies any bloody emesis. Patient does report black stools. Patient also states that he has had abdominal distention, lower extremity edema. He has had prior similar symptoms when he was diagnosed with pancreatitis 1 year ago. He states he underwent a cholecystectomy, endoscopy at that time. Patient's primary care physician is Dr. Hood. Patient denies current alcohol use. States he has not used alcohol in over 1 year. TRAVEL OUTSIDE OF THE [place] IN LAST 30 DAYS: No - HPI Onset: Other Onset/Duration: Gradual, Persistent, Worse Quality of pain: Cramping Severity: Mild Pain Level: 1 Associated symptoms: Diarrhea, Nausea, Vomiting, Other - Abdominal pain, lower extremity edema, black stools Exacerbated by: Denies Relieved by: Denies Similar symptoms previously: Yes Recently seen / treated by doctor: No - Related Data Allergies/Adverse Reactions: hydrocodone [From Lortab] Allergy (Verified 01/23/18 04:58) hydroxyzine Allergy (Verified 01/23/18 04:58) zolpidem [From Ambien] Allergy (Verified 01/23/18 04:58) Past Medical History - General Information source: Patient, Emergency Med Personnel, [facility] Records - Social History Smoking Status: Current Every Day Smoker Cigarette use (# per day): Yes - 5 Smoking Education Provided: Yes - Smoking cessation counseling was provided for 4 minutes at the bedside Frequency of alcohol use: None Drug Abuse: None Lives with: Spouse/Significant other Family History: Reviewed & Not Pertinent Patient has suicidal ideation: No Patient has homicidal ideation: No - Past Medical History Cardiac Medical History: Reports: Hx Hypertension Pulmonary Medical History: Reports: Hx COPD Neurological Medical History: Denies: Hx Seizures Renal/ Medical History: Denies: Hx Peritoneal Dialysis Psychiatric Medical History: Reports: Hx Depression Past Surgical History: Reports: Hx Appendectomy, Hx Tonsillectomy - Immunizations Hx Diphtheria, Pertussis, Tetanus Vaccination: No Hx Pneumococcal Vaccination: 11/17/10 Review of Systems - Review of Systems Constitutional: Weakness, Weight loss EENT: denies: Blurred vision, Difficulty swallowing Cardiovascular: denies: Chest pain, Palpitations, Syncope Respiratory: Cough. denies: Short of breath Gastrointestinal: Abdominal pain, Nausea, Vomiting, Black stools Genitourinary: denies: Dysuria Male Genitourinary: No symptoms reported Musculoskeletal: denies: Back pain Skin: Change in color Hematologic/Lymphatic: Easy bruising Neurological/Psychological: Confusion. denies: Lost consciousness, Headaches -: Yes All other systems reviewed and negative Physical Exam - Vital signs Vitals: Temp Resp 98.0 F 20 04/06/19 20:51 04/06/19 20:51 - Notes Notes: PHYSICAL EXAMINATION: GENERAL: Ill appearing, well-nourished and in no acute distress. HEAD: Atraumatic, normocephalic. EYES: Pupils equal round and reactive to light, extraocular movements intact, sclera icteric, ENT: Nares patent, oropharynx clear without exudates. Moist mucous membranes. NECK: Normal range of motion, supple without lymphadenopathy LUNGS: Breath sounds clear to auscultation bilaterally and equal. No wheezes rales or rhonchi. HEART: Regular rate and rhythm without murmurs ABDOMEN: Soft, diffuse tenderness with palpation, distended abdomen. No guarding, no rebound. No masses appreciated. Musculoskeletal: Normal range of motion, no pitting edema. No cyanosis. Ankle edema NEUROLOGICAL: Cranial nerves grossly intact. Normal speech, normal gait. Normal sensory, motor exams PSYCH: Normal mood, normal affect. SKIN: Jaundice, ecchymosis scattered Course - Re-evaluation Re-evalutation: Laboratory 04/06/19 04/06/19 04/06/19 20:59 20:59 20:59 WBC 9.6 RBC 2.25 L Hgb 8.8 L Hct 25.0 L MCV 111 H MCH 39.1 H MCHC 35.2 RDW 16.4 H Plt Count 107 L Total Counted 100 Seg Neutrophils % Not Reportable Seg Neuts % (Manual) 83 H Lymphocytes % Not Reportable Lymphocytes % (Manual) 7 L Monocytes % Not Reportable Monocytes % (Manual) 9 Eosinophils % Not Reportable Eosinophils % (Manual) 1 Basophils % Not Reportable Basophils % (Manual) 0 Absolute Neutrophils Not Reportable Abs Neuts (Manual) 8.0 Absolute Lymphocytes Not Reportable Abs Lymphs (Manual) 0.7 Absolute Monocytes Not Reportable Abs Monocytes (Manual) 0.9 Absolute Eosinophils Not Reportable Absolute Eos (Manual) 0.1 Absolute Basophils Not Reportable Abs Basophils (Manual) 0.0 Platelet Comment DECREASED Polychromasia SLIGHT Hypochromasia 1+ Macrocytosis 3+ Target Cells 1+ Tear Drop Cells SLIGHT Shahid Cells SLIGHT PT 17.4 H INR 1.35 APTT 41.4 H VBG pH VBG pCO2 VBG HCO3 VBG Base Excess Sodium 133.1 L Potassium 3.8 Chloride 98 Carbon Dioxide 15 L Anion Gap 20 H BUN 76 H Creatinine 6.70 H Est GFR ( Amer) 10 L Est GFR (Non-Af Amer) 9 L Glucose 90 Lactic Acid Calcium 8.4 Total Bilirubin 13.6 H Direct Bilirubin 11.7 H Neonat Total Bilirubin Not Reportable Neonat Direct Bilirubin Not Reportable Neonat Indirect Bili Not Reportable AST 268 H ALT 103 H Alkaline Phosphatase 234 H Ammonia Troponin I NT-Pro-B Natriuret Pep Total Protein 5.6 L Albumin 2.6 L Lipase 845.3 H POC Stool Occult Blood Serum Alcohol < 10 04/06/19 04/06/19 04/06/19 20:59 20:59 20:59 WBC RBC Hgb Hct MCV MCH MCHC RDW Plt Count Total Counted Seg Neutrophils % Seg Neuts % (Manual) Lymphocytes % Lymphocytes % (Manual) Monocytes % Monocytes % (Manual) Eosinophils % Eosinophils % (Manual) Basophils % Basophils % (Manual) Absolute Neutrophils Abs Neuts (Manual) Absolute Lymphocytes Abs Lymphs (Manual) Absolute Monocytes Abs Monocytes (Manual) Absolute Eosinophils Absolute Eos (Manual) Absolute Basophils Abs Basophils (Manual) Platelet Comment Polychromasia Hypochromasia Macrocytosis Target Cells Tear Drop Cells Shahid Cells PT INR APTT VBG pH VBG pCO2 VBG HCO3 VBG Base Excess Sodium Potassium Chloride Carbon Dioxide Anion Gap BUN Creatinine Est GFR ( Amer) Est GFR (Non-Af Amer) Glucose Lactic Acid 6.3 H Calcium Total Bilirubin Direct Bilirubin Neonat Total Bilirubin Neonat Direct Bilirubin Neonat Indirect Bili AST ALT Alkaline Phosphatase Ammonia 20.4 Troponin I < 0.012 NT-Pro-B Natriuret Pep 521 Total Protein Albumin Lipase POC Stool Occult Blood Serum Alcohol 04/06/19 04/06/19 21:06 21:53 WBC RBC Hgb Hct MCV MCH MCHC RDW Plt Count Total Counted Seg Neutrophils % Seg Neuts % (Manual) Lymphocytes % Lymphocytes % (Manual) Monocytes % Monocytes % (Manual) Eosinophils % Eosinophils % (Manual) Basophils % Basophils % (Manual) Absolute Neutrophils Abs Neuts (Manual) Absolute Lymphocytes Abs Lymphs (Manual) Absolute Monocytes Abs Monocytes (Manual) Absolute Eosinophils Absolute Eos (Manual) Absolute Basophils Abs Basophils (Manual) Platelet Comment Polychromasia Hypochromasia Macrocytosis Target Cells Tear Drop Cells Shahid Cells PT INR APTT VBG pH 7.28 L VBG pCO2 35.7 VBG HCO3 16.2 L VBG Base Excess -9.7 Sodium Potassium Chloride Carbon Dioxide Anion Gap BUN Creatinine Est GFR ( Amer) Est GFR (Non-Af Amer) Glucose Lactic Acid Calcium Total Bilirubin Direct Bilirubin Neonat Total Bilirubin Neonat Direct Bilirubin Neonat Indirect Bili AST ALT Alkaline Phosphatase Ammonia Troponin I NT-Pro-B Natriuret Pep Total Protein Albumin Lipase POC Stool Occult Blood POSITIVE Serum Alcohol Abdomen Ultrasound 04/06/19 21:12 IMPRESSION: 1. Query cirrhotic liver with surrounding ascites. 2. Prior cholecystectomy. 3. 11 cm complex cystic structure in the midline abdomen. Correlate with CT scan. Ribs X-Ray 04/06/19 21:12 IMPRESSION: 1. Old right rib fractures. 2. No acute rib fractures 3. No acute pulmonary findings. Abdomen/Pelvis CT 04/06/19 21:13 IMPRESSION: Multiple peripancreatic fluid collections, the largest of which is located within the lesser sac, most likely indicating multiple pancreatic pseudocysts. However, the sterility of these collections is indeterminate. Hepatomegaly with a large regional area of hypodensity located mostly about the right hepatic lobe, highly suspicious for acute steatohepatitis. Continued surveillance is suggested to exclude more sinister process such as an infiltrative malignancy. Moderate volume ascites. Nonobstructive right nephrolithiasis. Subacute fracture involving the right lateral 10th rib. Additional age indeterminate fracture deformities involving the right anterolateral fifth, sixth, and seventh ribs. TECHNICAL DOCUMENTATION: Quality ID # 436: Final reports with documentation of one or more dose reduction techniques (e.g., Automated exposure control, adjustment of the mA and/or kV according to patient size, use of iterative reconstruction technique) copyright 2011 [employer]- All Rights Reserved 04/06/19 23:[address] Hood for the second time. Awaiting callback. 04/07/19 02:[address] Bhardwaj it application administrator mission commander who recommends transfer. Temp Pulse Resp BP Pulse Ox 97.3 F 20 97/59 L 98 04/07/19 01:01 04/07/19 02:01 04/07/19 02:01 04/07/19 02:01 53-year-old male presents with complaint of nausea, vomiting, diarrhea, abdominal pain and black stools that have been ongoing for 2 weeks. Patient appears ill, dehydrated he is jaundiced with scleral icterus, abdominal distention. CBC is without leukocytosis but he does have an anemia of 8.8 which is new for the patient. CMP shows acute renal failure with a BUN of 76 and a creatinine of 6.70 which is also new for the patient. Patient does have elevated liver enzymes. Ultrasound was obtained and showed liver cirrhosis with associated ascites. CT of the abdomen was obtained and showed multiple pancreatic pseudocysts, moderate volume ascites and a hypodensity in the right hepatic lobe concerning for malignancy. VBG shows the patient to be acidotic. Patient does have a lactate of 6.3. Patient received IV fluids, Zofran, fentanyl. Family is at the bedside and is requesting transfer to [facility]. Dr. Mcgee has accepted the patient. Patient has had intermittent episodes of hypotension despite fluid resuscitation. He remains alert, awake. - Vital Signs Vital signs: Temp Pulse Resp BP Pulse Ox 97.3 F 20 97/59 L 98 04/07/19 01:01 04/07/19 02:01 04/07/19 02:01 04/07/19 02:01 - Laboratory Result Diagrams: 04/06/19 20:59 04/06/19 20:59 Laboratory results interpreted by me: 04/06/19 04/06/19 04/06/19 20:59 20:59 20:59 RBC 2.25 L Hgb 8.8 L Hct 25.0 L MCV 111 H MCH 39.1 H RDW 16.4 H Plt Count 107 L Seg Neuts % (Manual) 83 H Lymphocytes % (Manual) 7 L PT 17.4 H APTT 41.4 H VBG pH VBG HCO3 Sodium 133.1 L Carbon Dioxide 15 L Anion Gap 20 H BUN 76 H Creatinine 6.70 H Est GFR ( Amer) 10 L Est GFR (Non-Af Amer) 9 L Lactic Acid Total Bilirubin 13.6 H Direct Bilirubin 11.7 H AST 268 H ALT 103 H Alkaline Phosphatase 234 H Total Protein 5.6 L Albumin 2.6 L Lipase 845.3 H Urine Protein Urine Blood Urine Bilirubin Urine Urobilinogen 04/06/19 04/06/19 04/07/19 20:59 21:53 01:46 RBC Hgb Hct MCV MCH RDW Plt Count Seg Neuts % (Manual) Lymphocytes % (Manual) PT APTT VBG pH 7.28 L VBG HCO3 16.2 L Sodium Carbon Dioxide Anion Gap BUN Creatinine Est GFR ( Amer) Est GFR (Non-Af Amer) Lactic Acid 6.3 H Total Bilirubin Direct Bilirubin AST ALT Alkaline Phosphatase Total Protein Albumin Lipase Urine Protein 30 H Urine Blood MODERATE H Urine Bilirubin MODERATE H Urine Urobilinogen 4.0 H - Diagnostic Test Radiology reviewed: Image reviewed, Reports reviewed - EKG Interpretation by Co EKG shows normal: Sinus rhythm Rate: Normal Rhythm: NSR When compared to previous EKG there are: No significant change Critical Care Note - Critical Care Note Total time excluding time spent on procedures (mins): 45 - Minutes of critical care time spent in direct contact evaluating and reevaluating the patient, treating symptoms, reviewing labs and studies and speaking with family and consultants excluding any procedures Discharge - Discharge Clinical Impression: Pancreatic pseudocyst, Upper GI bleed, Hepatic steatosis, Lactic acidosis, Elevated lactic acid level, Jaundice Pancreatitis Qualifiers: Chronicity: acute Pancreatitis type: unspecified pancreatitis type Acute pancreatitis complication: unspecified Qualified Code(s): K85.90 - Acute pancreatitis without necrosis or infection, unspecified Liver cirrhosis Qualifiers: Hepatic cirrhosis type: unspecified hepatic cirrhosis Ascites presence: with ascites Qualified Code(s): K74.60 - Unspecified cirrhosis of liver; R18.8 - Other ascites Renal failure Qualifiers: Renal failure chronicity: acute Acute renal failure type: unspecified Qualified Code(s): N17.9 - Acute kidney failure, unspecified Abdominal pain Qualifiers: Abdominal location: lower abdomen, unspecified Qualified Code(s): R10.30 - Lower abdominal pain, unspecified Hypotension Qualifiers: Hypotension type: unspecified hypotension type Qualified Code(s): I95.9 - Hypotension, unspecified Condition: Critical Disposition: [facility] Referrals: ROXIE HOOD MD [Primary Care Provider] - Follow up as needed
[2019-04-06 21:40] LABS: INTERNATIONAL RATION (INR) 1.35; PROTHROMBIN TIME 17.4 SEC (11.4-15.4)
[2019-04-06 21:41] LABS: PARTIAL THROMBOPLASTIN TIME 41.4 SEC (23.5-35.8)
[2019-04-06 21:48] LABS: ALANINE AMINOTRANSFERASE 103 U/L (21-72); ALBUMIN 2.6 g/dL (3.5-5.0); ALKALINE PHOSPHATASE 234 U/L (38-126); ASPARTATE AMINO TRANSFERASE 268 U/L (17-59); BILIRUBIN,DIRECT 11.7 mg/dL (0.0-0.4); BILIRUBIN,TOTAL 13.6 mg/dL (0.2-1.3); BLOOD UREA NITROGEN 76 mg/dL (7-20); CALCIUM 8.4 mg/dL (8.4-10.2); GLUCOSE 90 mg/dL (75-110); LIPASE 845.3 U/L (23-300); POTASSIUM 3.8 mmol/L (3.6-5.0); TOTAL PROTEIN 5.6 g/dL (6.3-8.2)
[2019-04-06 21:52] LABS: CARBON DIOXIDE 15 mmol/L (22-30); CHLORIDE 98 mmol/L (98-107); SODIUM 133.1 mmol/L (137-145)
[2019-04-06 21:53] LABS: ALCOHOL < 10 mg/dL (NONE DETECTED); ANION GAP 20 (5-19)
[2019-04-06 22:00] LABS: NT PRO BNP 521 pg/mL (5-900)
[2019-04-06 22:01] LABS: HEMOGLOBIN 8.8 g/dL (13.5-17.0); MEAN CORPUSCULAR HEMOGLOBIN 39.1 pg (27.0-33.4); MEAN CORPUSCULAR HGB CONC 35.2 g/dL (32.0-36.0); PLATELET COUNT 107 10^3/uL (150-450); RED BLOOD COUNT 2.25 10^6/uL (4.35-5.55); RED CELL DISTRIBUTION WIDTH 16.4 % (11.5-14.0); WHITE BLOOD COUNT 9.6 10^3/uL (4.0-10.5)
[2019-04-06 22:03] LABS: TROPONIN I < 0.012 ng/mL
[2019-04-06 22:11] LABS: ABSOLUTE LYMPHOCYTES# (MANUAL) 0.7 10^3/uL (0.5-4.7); ABSOLUTE MONOCYTES # (MANUAL) 0.9 10^3/uL (0.1-1.4); BASOPHILS % (MANUAL) 0 % (0-2); EOSINOPHILS % (MANUAL) 1 % (0-6); LYMPHOCYTES % (MANUAL) 7 % (13-45); MONOCYTES % (MANUAL) 9 % (3-13); SEGMENTED NEUTROPHILS % (MAN) 83 % (42-78); TOTAL CELLS COUNTED 100
--- NOTE | 2019-04-06 22:12 | RADIOLOGY REPORT (SQ) ---
US ABDOMEN LIMITED HISTORY: Right upper quadrant pain. COMPARISON: None. TECHNIQUE: Grayscale and color Doppler imaging of the right upper quadrant was performed. FINDINGS: The liver has coarse echogenicity and a nodular contour with surrounding ascites suggesting cirrhosis. There has been a prior cholecystectomy. The common bile duct measures 8 mm. The visualized portions of the pancreas are unremarkable. No hydronephrosis or shadowing renal stones are identified. The right kidney is normal in size. The visualized portions of the IVC and aorta are patent. There is a complex cystic structure in the midline which measures 9.3 x 9.1 x 11.5 cm. IMPRESSION: 1. Query cirrhotic liver with surrounding ascites. 2. Prior cholecystectomy. 3. 11 cm complex cystic structure in the midline abdomen. Correlate with CT scan.
[2019-04-06 22:13] LABS: BURR CELLS SLIGHT; PLATELET COMMENT DECREASED; POLYCHROMASIA SLIGHT; TARGET CELLS 1+; TEAR DROP CELLS SLIGHT
[2019-04-06 22:14] LABS: MEAN CORPUSCULAR VOLUME 111 fl (80-97)
[2019-04-06 22:16] LABS: HYPOCHROMASIA 1+
[2019-04-06 22:28] LABS: VENOUS BLOOD BASE EXCESS -9.7 mmol/L; VENOUS BLOOD HCO3 16.2 mmol/L (20-32); VENOUS BLOOD PCO2 35.7 mmHg (35-63); VENOUS BLOOD PH 7.28 (7.30-7.42)
--- NOTE | 2019-04-06 22:34 | RADIOLOGY REPORT (SQ) ---
EXAM DESCRIPTION: [facility]: XR RIBS BILATERAL WITH CHEST Views: 6, AP chest and 5 views of the ribs CLINICAL HISTORY: 53 years Male, fall COMPARISON: Chest radiograph on 10/15/2011 FINDINGS: Chest single view: Lungs are clear, with no focal infiltrate, pneumothorax, or pleural effusion. Mild aortic calcifications are noted. Heart size is normal. Ribs: There are old healed anterolateral right 2nd through 6th rib fractures. No acute rib fractures. No subpleural thickening. No suspicious lytic or blastic rib lesion. IMPRESSION: 1. Old right rib fractures. 2. No acute rib fractures 3. No acute pulmonary findings.
--- NOTE | 2019-04-06 22:51 | RADIOLOGY REPORT (SQ) ---
EXAM DESCRIPTION: CT ABDOMEN PELVIS WITHOUT IV CONTRAST COMPLETED DATE/TME: 04/06/2019 21:13 CLINICAL HISTORY: 53 years, Male, RLQ and LLQ abd pain, jaundice COMPARISON: Prior study from 01/23/2018 TECHNIQUE: Noncontrast CT of the abdomen/pelvis was performed. Coronal and sagittal reformations were created. Images stored on PACS. All CT scanners at this facility use dose modulation, iterative reconstruction, and/or weight based dosing when appropriate to reduce radiation dose to as low as reasonably achievable (ALARA). [facility]: Dose Right [facility]: CareDose [facility]: Dose Right [facility]: Teradose 4D [facility]: FEMA Guides LIMITATIONS: None. FINDINGS: Limited evaluation of the lower chest reveals clear lung bases. Calcifications are evident about the coronary vessels. Evaluation of the liver parenchyma reveals large geographic areas of hypodensity throughout the right hepatic lobe. Additionally, the liver appears diffusely enlarged, measuring up to 21.2 cm in craniocaudal dimension. Assessment of the spleen reveals a subcentimeter low-density lesion located within the anterior aspect, too small to accurately characterize though likely benign. Both adrenal glands appear normal. The gallbladder is absent. The pancreas is largely obscured by multiple well-demarcated fluid density lesions. The largest is located within the lesser sac measuring 12.4 x 9.7 cm in size on image 27 of series 3. This displaces the immediately adjacent caudate lobe of the liver as well as the stomach along the lesser curvature. Similar-appearing fluid collections are noted about the pancreatic body, one of which measures approximately 6.9 x 3.1 cm in size on image 37 of series 3, extending along the course of the pancreatic body/tail. An additional fluid collection is evident adjacent to the inferior aspect of the pancreatic head measuring 4.6 x 4.4 cm in size on image 44 of series 3. The pancreas itself is difficult to assess given that it is largely obscured by these adjacent fluid collections. Assessment of the right kidney reveals a 3 mm calculus located within the upper pole. Both kidneys are otherwise normal in their noncontrast appearance. There is no hydronephrosis or hydroureter. The urinary bladder is collapsed, thus its evaluation is limited. The small and large bowel appear normal in caliber without areas of focal wall thickening. Evidence of bowel obstruction. The appendix is not visualized; however, no pericecal inflammatory changes are appreciated. A tiny focus of gas density is noted about the retroperitoneum on image 49 of series 3, likely within a duodenal diverticulum given its stability from the prior study dated 01/23/2018. Calcifications are evident about the abdominal aorta and proximal iliac vessels. No suspicious lymphadenopathy is appreciated. There is a moderate amount of diffuse ascites. Bone windows show a subacute fracture involving the right lateral 10th rib. There are also age-indeterminate deformities involving the right anterolateral fifth, sixth, and seventh ribs. No destructive osseous lesions. IMPRESSION: Multiple peripancreatic fluid collections, the largest of which is located within the lesser sac, most likely indicating multiple pancreatic pseudocysts. However, the sterility of these collections is indeterminate. Hepatomegaly with a large regional area of hypodensity located mostly about the right hepatic lobe, highly suspicious for acute steatohepatitis. Continued surveillance is suggested to exclude more sinister process such as an infiltrative malignancy. Moderate volume ascites. Nonobstructive right nephrolithiasis. Subacute fracture involving the right lateral 10th rib. Additional age indeterminate fracture deformities involving the right anterolateral fifth, sixth, and seventh ribs. TECHNICAL DOCUMENTATION: Quality ID # 436: Final reports with documentation of one or more dose reduction techniques (e.g., Automated exposure control, adjustment of the mA and/or kV according to patient size, use of iterative reconstruction technique) copyright 2011 [employer]- All Rights Reserved
[2019-04-07] MEDS ORDERED: FENTANYL CITRATE INJ/PF 100 MCG/2 ML AMPUL IV ONE (00:07)
[2019-04-07 02:16] LABS: APPEARANCE,URINE CLOUDY; BILIRUBIN,URINE MODERATE (NEGATIVE); COLOR,URINE AMBER; GLUCOSE, URINE NEGATIVE (NEGATIVE); KETONES,URINE NEGATIVE (NEGATIVE); LEUKOCYTE ESTERASE,URINE NEGATIVE (NEGATIVE); NITRITE,URINE NEGATIVE (NEGATIVE); PROTEIN,URINE 30 mg/dL (NEGATIVE); URINE SPECIFIC GRAVITY 1.013
[2019-04-07 02:40] VITALS: BP 97/58
--- NOTE | 2019-04-07 10:30 | EKG REPORT ---
SEVERITY:- ABNORMAL ECG - SINUS RHYTHM NONSPECIFIC INTRAVENTRICULAR CONDUCTION DELAY : Confirmed by: Guillermina Bills 07-Apr-2019 10:30:10
[2019-04-07 10:48] LABS: PATH REVIEW PATHOLOGIST REVIEWED
== END 2019-04-07 02:40 | disposition short-term general hospital (02) ==
LOC: ER 20:45
DX: K86.3 Pseudocyst of pancreas (principal); K85.90 Acute pancreatitis without necrosis or infection, unspecified; K92.2 Gastrointestinal hemorrhage, unspecified; K74.60 Unspecified cirrhosis of liver; E87.2 Acidosis; R18.8 Other ascites; N17.9 Acute kidney failure, unspecified; R10.30 Lower abdominal pain, unspecified; I95.9 Hypotension, unspecified; K76.0 Fatty (change of) liver, not elsewhere classified; R11.2 Nausea with vomiting, unspecified; R19.7 Diarrhea, unspecified; R10.32 Left lower quadrant pain; R53.1 Weakness; J44.9 Chronic obstructive pulmonary disease, unspecified; I10 Essential (primary) hypertension; F17.210 Nicotine dependence, cigarettes, uncomplicated; Z90.49 Acquired absence of other specified parts of digestive tract
CPT/HCPCS: 93005; 99285; 96361; 96374; 96375; 36415; 87040; 80307; 82140; 83690; 85025; 85610; 85730; 87077; 80053; 81001; 84484; 82803; 83605; 83880; 71111; 76705; 74176; 93010; J3010; C9113; J2405; J7030; S0164